=== PATIENT | female | born 1935 | race Caucasian/White ===

== ENCOUNTER 2016-07-11 05:46 | Observation (INO) | payer OTHER, MEDICARE ==
[2016-07-11] MEDS ORDERED: ceFAZolin 2 GM/DEXTROSE 100 ML IV ONE (06:00)
[2016-07-11] MEDS ORDERED: LIDOCAINE 1% 5 ML SDV ONE (06:06)
[2016-07-11] MEDS ORDERED: SKIN ADHESIVE (DERMABOND) 1 EACH TP ONE (06:34)
[2016-07-11] MEDS ORDERED: THROMBIN (RECOMBINANT) 5,000 UNIT VIAL TP ONE (06:34)
[2016-07-11] MEDS ORDERED: SURGIFLO MATRIX KIT WITH THROMBIN TP ONE (06:34)
[2016-07-11] MEDS ORDERED: BACITRACIN 50,000 UNITS/10 ML SYR IRR ONE (06:35)
[2016-07-11] MEDS ORDERED: THROMBIN (RECOMBINANT) 20,000 UNIT VIAL TP ONE (06:53)
[2016-07-11] MEDS ORDERED: ONDANSETRON 4 MG/2 ML VIAL ONE (07:00)
[2016-07-11 07:01] LABS: INR 1.07 (0.83-1.16); PROTIME(PATIENT) 13.8 SEC (12.0-15.0)
[2016-07-11] MEDS ORDERED: LIDOCAINE 2% 5 ML SDV ONE (07:10)
[2016-07-11] MEDS ORDERED: REMIFENTANIL HCL 1 MG VIAL ONE (07:11)
[2016-07-11] MEDS ORDERED: PROPOFOL 200 MG/20 ML VIAL ONE (07:12)
[2016-07-11] MEDS ORDERED: PROPOFOL/EMULSION 500 MG/50 ML BOTTLE IV ONE (07:12)
[2016-07-11] MEDS ORDERED: fentaNYL 100 MCG/2 ML INJ ONE ×2 (07:12→07:55)
[2016-07-11] MEDS ORDERED: ROCURONIUM 50 MG/5 ML VIAL ONE (07:16)
[2016-07-11] MEDS ORDERED: VASOPRESSIN 20 UNIT/ML VIAL ONE (07:49)
[2016-07-11] MEDS ORDERED: DEXAMETHASONE 4 MG/ML VIAL ONE ×2 (07:55)
[2016-07-11] MEDS ORDERED: epHEDrine SULFATE 10 MG/ML SYR ONE (08:49)
--- NOTE | 2016-07-11 09:27 | DX ---
Fluoroscopy Greater Than an Hour July 11, 2016 Indication: Anterior fusion C3-C4. Fluoroscopy time: 8.8 seconds. Dose: 0.55 mGy. Findings: Two spot fluoroscopic images were provided showing surgical hardware at C3 and C4. There is an interbody disk spacer. Impression: Fluoroscopy provided for anterior cervical fusion.
[2016-07-11] MEDS ORDERED: ONDANSETRON DISINTEGRATING 4 MG TAB PO PRN (09:28)
[2016-07-11] MEDS ORDERED: ONDANSETRON 4 MG/2 ML VIAL IVP PRN (09:28)
[2016-07-11] MEDS ORDERED: HYDROmorphONE/DILAUDID 1 MG/ML SYR IVP PRN (09:28)
[2016-07-11] MEDS ORDERED: MAGNESIUM HYDROXIDE 30 ML UDCUP PO PRN (09:28)
[2016-07-11] MEDS ORDERED: diphenhydrAMINE 25 MG CAP PO PRN (09:28)
[2016-07-11] MEDS ORDERED: PROMETHAZINE HCL 25 MG/ML VIAL IVP PRN (09:28)
[2016-07-11] MEDS ORDERED: BISACODYL 10 MG SUPP PR PRN (09:28)
[2016-07-11] MEDS ORDERED: POLYETHYLENE GLYCOL 3350 17 GM PKT PO PRN (09:28)
[2016-07-11] MEDS ORDERED: LACTULOSE 20 GM/30 ML UDCUP PO PRN (09:28)
[2016-07-11] MEDS ORDERED: DIAZEPAM 10 MG/2 ML SYR IVP PRN (09:28)
[2016-07-11] MEDS ORDERED: OXYCODONE/APAP 5/325 TAB PO PRN (09:28)
--- NOTE | 2016-07-11 09:28 | POSTOPPROG ---
Post Op Note Date of Operation: 07/11/16 Surgeon: Sarah Drake Story Editor: Zana Drake PA-C Anesthesia: GET(General Endotracheal) Pre-op Diagnosis: cervical stenosis Post-op Diagnosis: same Indication: cord compression Procedure: C34 ACDF Findings: Please see Dr. Comer's operative report Inf/Abcess present in the surg proc area at time of surgery?: No Depth: Organ Space EBL: Minimal Complications: none Drains: Blayne Staley Specimen(s): none PA Addendum - Addendum .: S: Pt awake in PACU, denies pain O: AAOx3 NAD VSS MAEx4 Motor 5/5 BUE/BLE +LT Incision cdi JPx1 A: 81 yo F s/p C34 ACDF P: PT/OT/ST Pain management No collar xrays pending Call NS with any issues
[2016-07-11] MEDS ORDERED: NS W/ 20 KCl/L 1,000 ML IV SCH (09:30)
--- NOTE | 2016-07-11 10:46 | GOP ---
[f rep st] OPERATIVE REPORT DATE OF OPERATION: 07/11/2016 SURGEON: Ayush Comer MD ANESTHESIA: General. PREOPERATIVE DIAGNOSIS: 1. C3-C4 cervical stenosis with myelopathy. 2. Treatment refractory to nonoperative intervention. POSTOPERATIVE DIAGNOSIS: 1. C3-C4 cervical stenosis with myelopathy. 2. Treatment refractory to nonoperative intervention. PROCEDURE PERFORMED: 1. Anterior arthrodesis with approach to C3-C4. 2. C3-C4 diskectomy and bilateral foraminotomies, osteophytectomies, and interbody fusion with a 7 mm titanium-coated PEEK cage with morcellized autograft and allograft. 3. Anterior cervical fusion C3-C4 with a Medtronic ZEVO plate. 4. Use of intraoperative 3D Stealth navigation. 5. Use of intraoperative fluoroscopy, less than 1 hour of physician time. 6. Use of neuromonitoring. 7. Use of operating microscope. FINDINGS: per imaging SPECIMENS: None. ESTIMATED BLOOD LOSS: 20 mL. INDICATIONS: The patient is an 81-year-old woman who has undergone prior lumbar surgery by myself from which she did quite well. She presented with ongoing multiple complaints including signs and symptoms consistent with myelopathy. She had diagnosis of severe spinal stenosis, C3-C4. After discussion of the risks, benefits, and treatment alternatives and after failing nonoperative interventions, we decided to proceed forth with surgery as described above. DESCRIPTION OF PROCEDURE: The patient was brought to the operating theater and underwent general endotracheal anesthesia without complications. She had Venodynes and MICHELLE hose placed. She was maintained supine on the operating table in slight extension. Using lateral fluoroscopy and spinal needle, we picked our entry point at the C3 -C4 level. This was marked in a transverse incision on the right side of her neck. All bony processes were inspected and padded, and the area prepped and draped in usual sterile surgical fashion. A time-out was completed per protocol. The incision was taken down initially with the scalpel blade, and then using the monopolar, taken down through subcutaneous tissue to the level of the platysma. The platysma was over-mined in the cranial and caudal directions. A Weitlaner was placed to maintain our exposure. We opened the fibers of the platysma cranially and caudally. Using blunt and sharp dissection, we traveled in a plane medial to the carotid sheath and lateral to the esophagus and trachea until we reached the prevertebral fascia. We placed a bayonetted needle into the disc space of C3-C4 and confirmed our level using lateral fluoroscopy. We then elevated the longus coli muscle from the anterior vertebral body of C3 and C4, and deep retractors were placed to maintain our exposure. The microscope was brought into the field to assist with microscopic dissection and to maintain illumination and magnification. We placed Newberry pins into the vertebral bodies of C3 and C4 and placed C3-C4 in mild distraction. At this point, using a combination of the bur tip on the drill bit and curettes, we completed a C3-C4 diskectomy. We completed osteophytectomies bilaterally and prepared the cartilaginous endplates. We measured the interbody space and placed a 7 mm titanium-coated PEEK cage filled with morcellized autograft and allograft into the C3-C4 disc space. We removed the Newberry pins and drilled down the anterior osteophytes. We secured a 17 mm Medtronic ZEVO plate onto the vertebral bodies of C3 and C4. AP and lateral x- rays demonstrated good placement of the hardware. We irrigated the wound copiously with bacitracin irrigation and left a drain in the subfascial space. The wound was then closed in multiple layers using Vicryl sutures for the deep layers and Dermabond for the skin. The patient's wounds were dressed sterilely. She was then awakened, extubated and taken to the recovery room in stable condition. There were no complications and no noted changes on neuromonitoring throughout the procedure. COMPLICATIONS: None. FINISH SANDER: AARON Bates. /[id number]/MODL MTDD
[2016-07-11] MEDS: DEXAMETHASONE 4 MG/ML VIAL IVP SCH ×2 (11:44→18:29)
[2016-07-11] MEDS: LISINOPRIL 10 MG TAB PO SCH (12:32)
[2016-07-11] MEDS: FUROSEMIDE 20 MG TAB PO SCH (12:32)
[2016-07-11] MEDS: ACETAMINOPHEN 325 MG TAB PO PRN ×2 (14:27→23:46)
--- NOTE | 2016-07-11 16:18 | DX ---
Cervical spine - 2 views - July 11, 2016 at 1430 hours Indication: Postoperative evaluation. Technique: Upright AP and lateral views. Comparison: MRI cervical spine dated June 06, 2016. Findings: An anterior cervical diskectomy and fusion construct has been formed at the C3-C4 level, ev idenced by an anterior plate, bilateral transvertebral screws in C3 and C4, and interbody bone graft and radiopaque markers in the C3-C4 interbody space. Fusion construct is well seated. No perihardware fracture or lucency. The prevertebral soft tissues are normal. Surgical drain is present anteriorly. Cervical spine is anatomically aligned with moderate multilevel degenerative disk disease extending from C2-C3 to C6-C7. Lung apices are clear. Bilateral calcified carotid plaque is worse right than le ft. Impression: New well seated ACDF at C3-C4.
[2016-07-11] MEDS: PRESERVISION AREDS 2 EYE VITAMIN 1 EACH PO SCH (18:30)
[2016-07-11] MEDS ORDERED: CEPACOL LOZENGE PO PRN (19:02)
[2016-07-11 20:16] VITALS: RESP 16
[2016-07-11] MEDS: METOPROLOL TARTRATE 50 MG TAB PO SCH (20:45)
[2016-07-11] MEDS: FAMOTIDINE 20 MG/NACL 50 ML IV SCH (20:46)
[2016-07-11] MEDS: SENNOSIDES/DOCUSATE SODIUM TAB PO SCH (20:46)
[2016-07-11] MEDS ORDERED: DL E AC PO SCH (21:00)
[2016-07-11] MEDS ORDERED: ZNOX PO SCH (21:00)
[2016-07-11] MEDS ORDERED: LUT PO SCH (21:00)
[2016-07-11] MEDS ORDERED: COPPER PO SCH (21:00)
[2016-07-11] MEDS ORDERED: VIT C PO SCH (21:00)
[2016-07-11] MEDS: DIAZEPAM 5 MG TAB PO PRN (23:46)
[2016-07-12] MEDS: CYCLOSPORINE 0.05% 1 EACH BOX EACHEYE SCH ×3 (00:57→08:09)
[2016-07-12] MEDS ORDERED: LEVOTHYROXINE 88 MCG TAB PO SCH (06:00)
[2016-07-12 07:29] VITALS: BP 126/77; PULSE 63; TEMP 97.5
[2016-07-12] MEDS: SENNOSIDES/DOCUSATE SODIUM TAB PO SCH (07:40)
[2016-07-12] MEDS: FUROSEMIDE 20 MG TAB PO SCH (07:41)
[2016-07-12] MEDS: PRESERVISION AREDS 2 EYE VITAMIN 1 EACH PO SCH (07:41)
[2016-07-12] MEDS: LISINOPRIL 10 MG TAB PO SCH (07:42)
[2016-07-12] MEDS: METOPROLOL TARTRATE 50 MG TAB PO SCH (07:42)
[2016-07-12] MEDS: FAMOTIDINE 20 MG/NACL 50 ML IV SCH (07:43)
[2016-07-12] MEDS: DIAZEPAM 5 MG TAB PO PRN (07:43)
--- NOTE | 2016-07-12 07:50 | SOAPPROG ---
SOAP Progress Note Assessment/Plan: Assessment: 81 yo F POD #1 C3/4 ACDF Plan: stable and doing well :) PT/OT x-rays look great dc [place] today restart coumadin POD #5, asa POD#[address] Comer please call with neuro changes dc home today discussed with Dr Comer 07/12/16 07:48 Subjective: mild throat soreness, no arm pain, no weakness. Objective: Vital Signs Temp Pulse Resp BP Pulse Ox 36.4 C 63 16 126/77 H 95 07/12/16 07:28 07/12/16 07:28 07/12/16 07:28 07/12/16 07:28 07/12/16 07:28 07/11/16 07/12/16 07/13/16 05:59 05:59 05:59 Intake Total 50 2550 Output Total 735 Balance 50 1815 PT 13.8 SEC (12.0-15.0) 07/11/16 06:45 INR 1.07 (0.83-1.16) 07/11/16 06:45 AAOX4, +FC PERRL, EOMI, no facial droop 5/5 + light touch C/D/I ICD10 Worksheet Patient Problems: Problems Problem Status Diagnosed Polypharmacy Acute Pulmonary embolism Acute Radicular low back pain Acute
[2016-07-12] MEDS ORDERED: VITAMIN B COMPLEX 1 EA CAP/TAB PO SCH (09:00)
[2016-07-12] MEDS ORDERED: CYANO/VITAMIN B12 1000 MCG TAB PO SCH (09:00)
[2016-07-12] MEDS ORDERED: CHOLECALCIFEROL VIT D3 1,000 UNITS TAB PO SCH (09:00)
[2016-07-12] MEDS ORDERED: LISINOPRIL 10 MG TAB PO SCH (09:00)
[2016-07-12] MEDS ORDERED: POTASSIUM CL 20 MEQ TAB PO SCH (09:00)
[2016-07-12] MEDS ORDERED: BUDESONIDE 3 MG EC CAP PO SCH (09:00)
[2016-07-12] MEDS ORDERED: CALCIUM CARBONATE 500 MG TAB PO SCH (09:00)
[2016-07-12] MEDS ORDERED: FUROSEMIDE 20 MG TAB PO SCH (09:00)
[2016-07-12] MEDS ORDERED: ALLOPURINOL 300 MG TAB PO SCH (09:00)
--- NOTE | 2016-07-12 13:55 | PDIAF ---
- Diagnosis Code Status: Full Code - Medication Management Discharge Medications: Medications to Continue on Transfer Allopurinol [Allopurinol 300 MG (RX)] 300 mg PO DAILY 01/31/15 [Last Taken 07/10] Aspirin [Aspirin 81mg (*)] 81 mg PO HS 01/31/15 [Last Taken 07/10/16] Budesonide [Entocort EC] 3 mg PO DAILY 01/31/15 [Last Taken 07/10/16] Cholecalciferol Vit D3 [Vitamin D3 (*)] 1,000 unit PO DAILY 01/31/15 [Last Taken 07/10/16] Cyanocobalamin [Vitamin B12 (*)] 1,000 mcg PO DAILY 01/31/15 [Last Taken ] Herbals/Supplements -Info Only 1 tab PO AD 01/31/15 [Last Taken 07/10/16] Guy-3 Fatty Acids [Fish Oil 1000 mg (*)] 1,000 mg PO DAILY 01/31/15 [Last Taken 07/10/16] Vit C/Dl-E AC/Lut/Copper/Znox [Preservision Softgel] 1 cap PO BID 01/31/15 [ Last Taken 07/10/16] Calcium Carbonate [Oyster Shell Calcium 500 mg (*)] 500 mg PO DAILY 02/10/15 [ Last Taken 07/10/16] cycloSPORINE 0.05% [Restasis Opht Drops(*)] 1 drop EACHEYE BID 02/10/15 [Last Taken 07/11/16] Metoprolol Tartrate [Lopressor 50 mg (*)] 50 mg PO BID #60 tab 04/09/15 [Last Taken 07/11/16] Furosemide [Lasix 20 MG (*)] 20 mg PO DAILY 06/23/16 [Last Taken 07/10/16] Glucosamine Sulfate [Glucosamine Sulfate 500 MG (*)] 1,000 mg PO DAILY 06/23/16 [Last Taken 07/10/16] Levothyroxine [Synthroid 88 mcg (*)] 88 mcg PO DAILY06 06/23/16 [Last Taken 09/22] Lisinopril [Zestril 10 mg (*)] 10 mg PO DAILY 06/23/16 [Last Taken Unknown] Potassium Cl [Klor-Con 20 meq (*)] 20 meq PO DAILY 06/23/16 [Last Taken 07/10/16 ] Vitamin B Complex [B Complex] 1 each PO DAILY 06/23/16 [Last Taken 07/10/16] Warfarin Sodium [Coumadin 3MG (*)] 6 mg PO MOTUWEFRSA@17 06/23/16 [Last Taken ] Warfarin Sodium [Coumadin 5MG (*)] 5 mg PO SUTH@17 06/23/16 [Last Taken 07/05/16 ] Benzocaine/Menthol 15/4 [Cepacol Lozenge] 1 - 2 ea PO Q2 PRN #0 lozenge [Last Taken Unknown] Diazepam [Valium 5 MG (*)] 2.5 - 5 mg PO QID PRN #0 tab 07/12/16 [Last Taken Unknown] oxyCODONE/APAP 5/325 [Percocet 5/325 (*)] 1 - 2 tab PO Q4HRS PRN #0 tab [Last Taken Unknown] Discharge Medications: Refer to the Discharge Home Medication list for PRN reason. PICC Care - Routine: N/A - Orders Services needed: Home Care, Physical Therapy, Occupational Therapy Home Care Face to Face: I certify that this patient was under my care and that I had the required [id number] encounter meeting the encounter requirements on the discharge day. My findings support the fact that the patient is homebound as defined in CMS Chapter 7 Medicare Benefits Manual 30.1.1, The condition of the patient is such that there exists a normal inability to leave home and consequently, leaving home would require a considerable and taxing effort. Diet Recommendation: no restrictions on diet Diet Texture: Dysphagia 2 - Mechanically Altered - Chopped, Ground, Dysphagia 1 - Pureed, Thin Liquids, Ice Chips, Meds Whole w/Liquids Solorio: No Dipak Stockings Discontinue Date: 07/13/15 Additional: follow up with Dr Comer in 2 weeks. ok to restart coumadin on and aspirin on 07/18/15 - Follow Up Care Current Providers and Referrals: Antolin Nagy MD [Primary Care Provider] -
[2016-07-12 15:54] VITALS: O2SAT 93
[2016-07-12] MEDS ORDERED: FAMOTIDINE 20 MG TAB PO SCH (21:00)
[2016-07-14] MEDS ORDERED: ENOXAPARIN 40 MG/0.4 ML SYR SC SCH (09:00)
== END 2016-07-12 14:22 | disposition home health service (06) ==
LOC: INTOOBSV 05:46 → F3N 05:46
PROVIDERS: ADMIT Neurological Surgery; ATTEND Neurological Surgery
PROC: 8E0WXBZ Computer Assisted Procedure of Trunk Region (ICD-10-PCS; principal; 2016-07-11 07:15)
PROC: 4A10X4G Monitoring of Central Nervous Electrical Activity, Intraoperative, External Approach (ICD-10-PCS; principal; 2016-07-11 07:15)
PROC: 0RG1070 Fusion of Cervical Vertebral Joint with Autologous Tissue Substitute, Anterior Approach, Anterior Column, Open Approach (ICD-10-PCS; principal; 2016-07-11 07:15)
DX: M48.02 Spinal stenosis, cervical region (principal); I26.99 Other pulmonary embolism without acute cor pulmonale; N18.3 Chronic kidney disease, stage 3 (moderate); I12.9 Hypertensive chronic kidney disease with stage 1 through stage 4 chronic kidney disease, or unspecified chronic kidney disease; E03.9 Hypothyroidism, unspecified; E78.5 Hyperlipidemia, unspecified; M81.0 Age-related osteoporosis without current pathological fracture; Z86.718 Personal history of other venous thrombosis and embolism
CPT/HCPCS: 22551; 72040; 76001; 92526; 92610; 97161; 97166; C1713; G8978; G8979; G8987; G8988; G8996; G8997; G8998; J0690; J1100; J2405; J2704; J3010

== ENCOUNTER → 2016-08-16 | Outpatient (CLI) | payer OTHER, MEDICARE ==
--- NOTE | 2016-08-16 18:16 | DX ---
Cervical Spine 2 views Reason for examination: Postoperative follow up. Comparison: Comparison to the previous examination of July 11, 2016. Findings: Postoperative changes of anterior cervical fusion are seen with the fusion plate, vertebra l body anchor screws and bone plug in stable positions. The hardware is intact. The bone alignment is normal. Persistent disk space loss is noted at the C2-C3 and at the C4-C5 level. Less prominent disk space loss is seen at C5-C6 and C6-C7. Facet hypertrophy extends from C3-C4 to the C6-C7 level. Prev ertebral soft tissues appear normal. Impression: 1. Stable postoperative changes of anterior cervical fusion with intact hardware. 2. See above report for additional findings.
== END ==
LOC: FIMAGING 12:06
PROVIDERS: ATTEND Physician Assistant
DX: Z09 Encounter for follow-up examination after completed treatment for conditions other than malignant neoplasm (principal); Z98.1 Arthrodesis status

== ENCOUNTER → 2016-08-16 | Outpatient (CLI) | payer OTHER, MEDICARE ==
--- NOTE | 2016-08-16 15:27 | MA ---
Screening Digital Mammogram With iCAD Analysis Clinical Indications: Routine screening. Technique: Standard cephalocaudal and mediolateral oblique projections were obtained. This examinatio n was processed by the iCAD computer aided detection system. Comparison: July 2015, July 2014, July 2013, July 2012, May 2011, May 2010, May. Breast density: Type B; Scattered fibroglandular densities. Findings: CAD was reviewed. No masses, suspicious calcifications or other signs of malignancy are id entified. There has been no significant change in the appearance of either breast. Vascular calcifi cations are noted. Impression: Negative mammogram. BI-RADS 1. Recommendation: Routine mammographic screening in one year. [facility] will send a result letter to the patient. Negative mammography should not preclude additional workup of a clinically suspicious finding. The patient's information is entered into a reminder system with a target due date for her next mammo gram.
== END ==
LOC: BMCIMAGING 10:45
DX: Z12.31 Encounter for screening mammogram for malignant neoplasm of breast (principal)
CPT/HCPCS: G0202

== ENCOUNTER 2016-09-27 00:36 | Emergency (ER) | payer OTHER, MEDICARE ==
[2016-09-27 00:42] VITALS: RESP 16; TEMP 97.5
[2016-09-27] MEDS ORDERED: OXYMETAZOLINE 30 ML NASAL SPRAY ONE ×2 (00:48→00:54)
[2016-09-27] MEDS ORDERED: SILVER NITRATE APPLICATOR 1 APPL TP ONE ×2 (00:53→01:19)
--- NOTE | 2016-09-27 01:07 | EDPHY ---
H & P Stated Complaint: epistaxis x2h, on warfarin Time Seen by Provider: 09/27/16 00:52 HPI/ROS: Chief complaint: Nose bleed HPI: 81-year-old female on Coumadin started having bleeding from her right nostril approximately 2 hours ago. It is persisted despite her applying direct pressure. 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 Denies any nasal trauma. No headache. No nausea or vomiting. Patient states that is running from the front of her right nostril. ROS: 10 point Review of Systems is negative except as noted in the HPI. Past medical history: PE Cervical spine surgery Physical exam: Gen: Awake, Alert, No Distress HEENT: Nose: Oozing from the right anterior nostril Eyes: PERRLA, EOMI Mouth: Moist mucosa Neck: Supple, no JVD Ext: no edema, non-tender Skin: no rash Neuro: CN II-XII intact, Sensation grossly intact, Strength 5/5 in bilateral upper and lower extremities - Personal History Current Tetanus/Diphtheria Vaccine: Yes Current Tetanus Diphtheria and Acellular Pertussis (TDAP): Yes Tetanus Vaccine Date: < 10 years - Medical/Surgical History Hx Asthma: No Hx Chronic Respiratory Disease: No Hx Diabetes: No Hx Cardiac Disease: Yes Hx Renal Disease: Yes Hx Cirrhosis: No Hx Alcoholism: No Hx HIV/AIDS: No Hx Splenectomy or Spleen Trauma: No Other PMH: pulmonary HTN/back problems-disectomy 02/01/15/bilat knee surgery/ renal issues/HTN/hysterectomy/carpal tunnel/ should cuff repair/cateracs with mutifocol lense/back surg/PE. Ecoli uti 3wk ago - Social History Smoking Status: Never smoked Constitutional: Initial Vital Signs Temperature (C) 36.4 C 09/27/16 00:39 Heart Rate 62 09/27/16 00:39 Respiratory Rate 16 09/27/16 00:39 Blood Pressure 182/89 H 09/27/16 00:39 O2 Sat (%) 93 09/27/16 00:39 O2 Delivery Mode Room Air Allergies/Adverse Reactions: codeine Allergy (Verified 03/15/16 12:49) NSAIDS (Non-Steroidal Anti-Inflamma Allergy (Verified 03/15/16 12:49) Opioids - Morphine Analogues Allergy (Verified 03/15/16 12:49) tramadol Allergy (Verified 03/15/16 12:49) Home Medications: Medication Instructions Recorded Allopurinol [Allopurinol 300 MG 300 mg PO DAILY 01/31/15 (RX)] Aspirin [Aspirin 81mg (*)] 81 mg PO HS 01/31/15 Budesonide [Entocort EC] 3 mg PO DAILY 01/31/15 Cholecalciferol Vit D3 [Vitamin D3 1,000 unit PO DAILY 01/31/15 (*)] Cyanocobalamin [Vitamin B12 (*)] 1,000 mcg PO DAILY 01/31/15 Herbals/Supplements -Info Only 1 tab PO AD 01/31/15 Magness-3 Fatty Acids [Fish Oil 1000 1,000 mg PO DAILY 01/31/15 mg (*)] Vit C/Dl-E AC/Lut/Copper/Znox 1 cap PO BID 01/31/15 [Preservision Softgel] Calcium Carbonate [Oyster Shell 500 mg PO DAILY 02/10/15 Calcium 500 mg (*)] cycloSPORINE 0.05% [Restasis Opht 1 drop EACHEYE BID 02/10/15 Drops(*)] Metoprolol Tartrate [Lopressor 50 50 mg PO BID #60 tab 04/09/15 mg (*)] Furosemide [Lasix 20 MG (*)] 20 mg PO DAILY 06/23/16 Glucosamine Sulfate [Glucosamine 1,000 mg PO DAILY 06/23/16 Sulfate 500 MG (*)] Levothyroxine [Synthroid 88 mcg 88 mcg PO DAILY06 06/23/16 (*)] Lisinopril [Zestril 10 mg (*)] 10 mg PO DAILY 06/23/16 Potassium Cl [Klor-Con 20 meq (*)] 20 meq PO DAILY 06/23/16 Vitamin B Complex [B Complex] 1 each PO DAILY 06/23/16 Warfarin Sodium [Coumadin 3MG (*)] 6 mg PO MOTUWEFRSA@17 06/23/16 Warfarin Sodium [Coumadin 5MG (*)] 5 mg PO SUTH@17 06/23/16 Benzocaine/Menthol 15/4 [Cepacol 1 - 2 ea PO Q2 PRN #0 lozenge 07/12/16 Lozenge] Diazepam [Valium 5 MG (*)] 2.5 - 5 mg PO QID PRN #0 tab 07/12/16 oxyCODONE/APAP 5/325 [Percocet 1 - 2 tab PO Q4HRS PRN #0 tab 07/12/16 5/325 (*)] Medical Decision Making Procedures: Procedure: Epistaxis control. After verbal consent was obtained, the patient was anesthetized with lidocaine 1 % spray and Rufino-Synephrine. The anterior epistaxis was identified on the turbinates. The patient was treated with suction and cautery with silver nitrate. Following the procedure the patient was re-examined and the bleeding was well controlled. The patient tolerated the procedure well. The procedure was performed by myself. ED Course/Re-evaluation: Patient presenting with epistaxis on Coumadin. She had a provoked PE after spinal surgery a year and half ago. I am not finding any documentation to explain why she is still on anticoagulation. She has had 3 complications due to her Coumadin in the last year and a half including 2 episodes of epistaxis and 1 episode of bleeding from an IV site. She is not currently have any risk factors for PE. I have encouraged her to have a conversation with her primary care physician regarding the indication for continuing anticoagulation. She states that he had discussed switching her to Eliquis, however I am uncertain as to what her indication for anticoagulation would be at this point. She will have that conversation with him. Otherwise she will follow-up for further management of epistaxis. She is controlled with cautery here with no further bleeding. She does not want nasal packing placed in is controlled at this time. Will discharge with follow-up as stated. - Data Points Medications Given: Discontinued Medications Phenylephrine HCl (Rufino-Synephrine) 1 spray EACHNARE EDNOW ONE Stop: 09/27/16 01:18 Last Admin: 09/27/16 01:20 Dose: 2 spr Departure - Departure Disposition: Home, Routine, Self-Care Clinical Impression: Acute anterior epistaxis Condition: Good Instructions: Nosebleed (ED) Additional Instructions: Please discussed with your primary care physician whether you need to continue taking Coumadin. Follow up with primary care doctor next 2-3 days. Return for increasing bleeding, fevers, chills, headache, or any other concerns. Referrals: Antolin Nagy MD [Primary Care Provider] - As per Instructions
[2016-09-27] MEDS ORDERED: PHENYLEPHRINE 0.5% NASAL 15 ML SPRAY EACHNARE ONE (01:17)
[2016-09-27 02:26] VITALS: BP 188/118; PULSE 58; O2SAT 92
== END 2016-09-27 02:27 | disposition home or self-care (01) ==
PROC: 2Y41X5Z Packing of Nasal Region using Packing Material (ICD-10-PCS; principal; 2016-09-27)
DX: R04.0 Epistaxis (principal); I10 Essential (primary) hypertension; Z79.82 Long term (current) use of aspirin; Z79.01 Long term (current) use of anticoagulants

== ENCOUNTER → 2016-09-29 | Outpatient (CLI) | payer OTHER, MEDICARE | LOC: BMCIMAGING 11:50 | PROVIDERS: ATTEND Neurological Surgery | DX: Z09 Encounter for follow-up examination after completed treatment for conditions other than malignant neoplasm (principal); Z98.1 Arthrodesis status ==

== ENCOUNTER → 2016-10-19 | Outpatient (CLI) | payer OTHER, MEDICARE | LOC: FIMAGING 09:52 | PROVIDERS: ATTEND Physician Assistant | DX: M99.73 Connective tissue and disc stenosis of intervertebral foramina of lumbar region (principal); M43.16 Spondylolisthesis, lumbar region; M51.26 Other intervertebral disc displacement, lumbar region; M48.06 Spinal stenosis, lumbar region; I26.99 Other pulmonary embolism without acute cor pulmonale ==

== ENCOUNTER 2016-11-06 13:01 | Day surgery (SDC) | payer OTHER, MEDICARE ==
[2016-11-06] MEDS ORDERED: fentaNYL 100 MCG/2 ML INJ ONE (14:06)
[2016-11-06] MEDS ORDERED: MIDAZOLAM 2 MG/2 ML VIAL ONE (14:06)
[2016-11-06] MEDS ORDERED: DEPO METHYLPREDNISOLONE 40 MG/ML SDV ONE (14:39)
[2016-11-06] MEDS ORDERED: DEPO METHYLPREDNISOLONE 80 MG/ML SDV ONE (14:40)
[2016-11-06] MEDS ORDERED: BUPIVACAINE 0.5% 30 ML SDV ONE (14:48)
[2016-11-06] MEDS ORDERED: LIDOCAINE 1% 30 ML SDV ONE (14:48)
== END 2016-11-06 16:05 | disposition home or self-care (01) ==
LOC: FIMAGING 13:01
PROVIDERS: ATTEND Physician Assistant Surgical
PROC: 3E0R3BZ Introduction of Anesthetic Agent into Spinal Canal, Percutaneous Approach (ICD-10-PCS; principal; 2016-11-06 14:50)
DX: M43.16 Spondylolisthesis, lumbar region (principal)
CPT/HCPCS: J1030; J1040; J2250; J3010

== ENCOUNTER → 2016-12-21 | Outpatient (CLI) | payer OTHER, MEDICARE | LOC: BMCIMAGING 08:34 | PROVIDERS: ATTEND Physician Assistant Surgical | DX: Z47.89 Encounter for other orthopedic aftercare (principal); Z98.1 Arthrodesis status ==

== ENCOUNTER → 2017-02-09 | Outpatient (CLI) | payer OTHER, MEDICARE ==
[~2017-02-09] MED LIST: BUPIVACAINE 0.5% 10 ML SDV ONE; IOPAMIDOL (ISOVUE 370) 100 ML BTL IV ONE; LIDOCAINE 1% 300 MG/30 ML SDV ONE
== END ==
LOC: FIMAGING 10:09
PROVIDERS: ATTEND Radiology Diagnostic Radiology
PROC: BQ101ZZ Fluoroscopy of Right Hip using Low Osmolar Contrast (ICD-10-PCS; principal; 2017-02-09)
PROC: 3E0U3BZ Introduction of Anesthetic Agent into Joints, Percutaneous Approach (ICD-10-PCS; principal; 2017-02-09)
DX: M25.551 Pain in right hip (principal)
CPT/HCPCS: 20610; Q9967

== ENCOUNTER → 2017-03-16 | Outpatient (CLI) | payer OTHER, MEDICARE ==
[~2017-03-16] MED LIST changes: -BUPIVACAINE 0.5% 10 ML SDV ONE; +DEPO METHYLPREDNISOLONE 40 MG/ML SDV ONE; +DEPO METHYLPREDNISOLONE 80 MG/ML SDV ONE; +ROPIVACAINE HCL 150 MG/30 ML INJ ONE
== END ==
LOC: FIMAGING 10:08
PROVIDERS: ATTEND Orthopaedic Surgery
PROC: BQ101ZZ Fluoroscopy of Right Hip using Low Osmolar Contrast (ICD-10-PCS; principal; 2017-03-16)
PROC: 3E0U33Z Introduction of Anti-inflammatory into Joints, Percutaneous Approach (ICD-10-PCS; principal; 2017-03-16)
PROC: 3E0U3BZ Introduction of Anesthetic Agent into Joints, Percutaneous Approach (ICD-10-PCS; principal; 2017-03-16)
DX: M25.551 Pain in right hip (principal)
CPT/HCPCS: 20610; J1040; J2795; Q9967; J1030

== ENCOUNTER → 2017-06-27 | Outpatient (CLI) | payer OTHER, MEDICARE | LOC: BMCIMAGING 11:20 → EDSTATUS 11:22 | PROVIDERS: ATTEND Neurological Surgery | DX: Z98.1 Arthrodesis status (principal) ==

== ENCOUNTER 2017-07-05 11:31 | Inpatient (IN) | payer OTHER, MEDICARE ==
--- NOTE | 2017-07-05 12:13 | EDPHY ---
General Narrative: CHIEF COMPLAINT: Back pain HISTORY OF PRESENT ILLNESS: Patient complains of 3 weeks history of worsening lumbar back pain. She has a history of low back pain with diagnosis of spondylolisthesis and degenerative disc. She says that she was doing well with outpatient therapies including previous IR injections. She had a hip replacement in April. She was doing well from night until 3 weeks ago when she had worsening of her low back pain during physical therapy. Since then she has had severe low back pain that continues to worsen. It is limiting her range of motion and ambulatory status due to this. She has not had any changes in her pre-existing right leg paresthesias, that occurred immediately postoperatively. She has had no saddle anesthesia. She has had no incontinence of bowel or bladder. No fever. No redness to the back. No recent injections. She was seen by the neurosurgery PA earlier today, and she sent her to our facility for higher level of care and stat MRI of the lumbar spine. REVIEW OF SYSTEMS: Ten systems reviewed and are negative unless otherwise noted in the HPI PCP: Dr. Nagy SPECIALISTS: Dr. Comer PAST MEDICAL HISTORY: Significant. Reviewed with patient. PAST SURGICAL HISTORY: Most recently right total hip arthroplasty. SOCIAL HISTORY: Nonsmoker. Retired FAMILY HISTORY: Noncontributory EXAMINATION General Appearance: Alert, no distress Head: normocephalic, atraumatic Eyes: Bilateral arcus senilis. Pupils equal and round, no conjunctival pallor or injection ENT, Mouth: Mucous membranes moist Neck: Normal inspection, supple, non-tender Respiratory: Lungs are clear to auscultation. No wheezing, rhonchi or crackles Cardiovascular: Regular rate and rhythm. No murmur. Symmetric radial pulses 2 + Back: Lumbar midline tenderness without any crepitus, step-off or deformity. There is also soft tissue tenderness on the right lumbar musculature. Neurological: GCS 15. Cranial nerves 2-12 grossly intact. A&O, nonfocal, antalgic but steady gait. Strength is symmetric in the hips, knees and ankles. Symmetric patellar reflexes 2+. Sensory symmetric to the shins, dorsum of the feet and plantar surfaces Skin: Warm and dry, no rash. No petechiae or purpura. No cellulitis or erythema. There is no fluctuance or crepitus over the lumbar spinal skin Extremities: Nontender, no pedal edema. Range of motion is symmetric in lower extremities. Psychiatric: Mood and affect normal DIFFERENTIAL DIAGNOSES: Including but not limited to lumbar radiculopathy, diskitis, epidural abscess, spondylolisthesis, spinal instability MDM: 12:05 p.m. Lumbar back pain with known spondylolisthesis at L3-4 and L4-5. She is neuro intact with no evidence of cauda equina but she does have severe, intractable pain. Thus I have ordered an MRI of the lumbar spine. She has no fever or recent injections that would indicate the possibility of epidural abscess or diskitis. I will consult Neurosurgery. 12:15 p.m. Case discussed with neurosurgery PA Tonya Chau. She recommends MRI of the lumbar spine and possibly flexion-extension films depending on what the MRI reveals. This has been ordered I will call her back with results of the MRI. 1:54 p.m. Case discussed with radiologist Dr. Morales. MRI findings discussed as documented. No acute cord compression 2:00 p.m. Case discussed with the on-call neurosurgery PA, Tonya Chau. She informed that she would be happy to admit the patient for symptomatic care injection or she will be comfortable with patient being discharged home with outpatient injection ordered. I will discuss with the patient to evaluate. 2:05 p.m. Patient re-evaluated. She says that she does not feel safe for comfortable going home. She would like to stay for admission. I will contact Neurosurgery again to discuss. 2:25 p.m. I discussed the case again with the PA Tonya Chau. She will admit the patient to Neurosurgery service. She will enter the remaining orders. Plan for injection likely tomorrow morning. Patient is comfortable this plan. At this time she has been admitted for pain control and has no neuro deficits. She is admitted in stable condition SUPERVISION: Patient was independently examined, but I discussed the case with my secondary supervising physician Dr. Pierce - History Smoking Status: Never smoked - Objective Vital Signs: Initial Vital Signs Temperature (C) 97.3 F 07/05/17 11:42 Heart Rate 86 07/05/17 11:42 Respiratory Rate 18 07/05/17 11:42 Blood Pressure 197/105 H 07/05/17 11:42 O2 Sat (%) 97 07/05/17 11:42 O2 Delivery Mode Room Air Allergies/Adverse Reactions: codeine Allergy (Verified 07/05/17 11:41) NSAIDS (Non-Steroidal Anti-Inflamma Allergy (Verified 07/05/17 11:41) Opioids - Morphine Analogues Allergy (Verified 07/05/17 11:41) tramadol Allergy (Verified 07/05/17 11:41) Home Medications: Medication Instructions Recorded Allopurinol [Allopurinol 300 MG 300 mg PO DAILY 01/31/15 (RX)] Aspirin [Aspirin 81mg (*)] 81 mg PO HS 01/31/15 Budesonide [Entocort EC] 3 mg PO DAILY 01/31/15 Cholecalciferol Vit D3 [Vitamin D3 1,000 unit PO DAILY 01/31/15 (*)] Cyanocobalamin [Vitamin B12 (*)] 1,000 mcg PO DAILY 01/31/15 Calcium Carbonate [Oyster Shell 500 mg PO DAILY 02/10/15 Calcium 500 mg (*)] Levothyroxine [Synthroid 88 mcg 88 mcg PO DAILY06 06/23/16 (*)] Lisinopril [Zestril 10 mg (*)] 10 mg PO DAILY 06/23/16 Potassium Cl [Klor-Con 20 meq (*)] 20 meq PO DAILY 06/23/16 Warfarin Sodium [Coumadin 3MG (*)] 6 mg PO MOTUWEFRSA@17 06/23/16 Warfarin Sodium [Coumadin 5MG (*)] 5 mg PO SUTH@17 06/23/16 Laboratory Results: Laboratory Results 07/05/17 12:30 07/05/17 12:30 07/05/17 07/05/17 07/05/17 12:30 12:30 12:30 WBC 6.54 10^3/uL 10^3/uL (3.80-9.50) RBC 4.22 10^6/uL 10^6/uL (4.18-5.33) Hgb 13.1 g/dL g/dL (12.6-16.3) Hct 39.5 % % (38.0-47.0) MCV 93.6 fL fL (81.5-99.8) MCH 31.0 pg pg (27.9-34.1) MCHC 33.2 g/dL g/dL (32.4-36.7) RDW 17.0 % H % (11.5-15.2) Plt Count 246 10^3/uL 10^3/uL (150-400) MPV 10.5 fL fL (8.7-11.7) Neut % (Auto) 67.8 % % (39.3-74.2) Lymph % (Auto) 18.0 % % (15.0-45.0) [place] % (Auto) 11.0 % % (4.5-13.0) Eos % (Auto) 2.3 % % (0.6-7.6) Baso % (Auto) 0.6 % % (0.3-1.7) Nucleat RBC Rel Count 0.0 % % (0.0-0.2) Absolute Neuts (auto) 4.43 10^3/uL 10^3/uL (1.70-6.50) Absolute Lymphs (auto) 1.18 10^3/uL 10^3/uL (1.00-3.00) Absolute Monos (auto) 0.72 10^3/uL 10^3/uL (0.30-0.80) Absolute Eos (auto) 0.15 10^3/uL 10^3/uL (0.03-0.40) Absolute Basos (auto) 0.04 10^3/uL 10^3/uL (0.02-0.10) Absolute Nucleated RBC 0.00 10^3/uL 10^3/uL (0-0.01) Immature Gran % 0.3 % % (0.0-1.1) Immature Gran # 0.02 10^3/uL 10^3/uL (0.00-0.10) PT 28.9 SEC H SEC (12.0-15.0) INR 2.74 H (0.83-1.16) APTT 31.1 SEC SEC (23.0-38.0) Sodium 143 mEq/L mEq/L (134-144) Potassium 4.1 mEq/L mEq/L (3.5-5.2) Chloride 106 mEq/L mEq/L (97-110) Carbon Dioxide 26 mEq/l mEq/l (22-31) Anion Gap 11 mEq/L mEq/L (8-16) BUN 29 mg/dL H mg/dL (7-23) Creatinine 1.1 mg/dL H mg/dL (0.6-1.0) Estimated GFR 48 Glucose 89 mg/dL mg/dL (70-100) Calcium 10.1 mg/dL mg/dL (8.5-10.4) Departure - Departure Disposition: Home, Routine, Self-Care Clinical Impression: Radicular low back pain, Intractable low back pain Condition: Good Referrals: Antolin Nagy MD [Primary Care Provider] - As per Instructions
[2017-07-05 12:40] LABS: PLATELET COUNT 246 10^3/uL (150-400)
[2017-07-05 12:49] LABS: INR 2.74 (0.83-1.16); PROTIME(PATIENT) 28.9 SEC (12.0-15.0)
[2017-07-05] MEDS ORDERED: HYDROCODONE/APAP 5/325 TAB PO PRN (14:37)
[2017-07-05] MEDS: METHOCARBAMOL 500 MG TAB PO SCH ×2 (16:36→20:31)
--- NOTE | 2017-07-05 17:34 | GHP ---
[f rep st] HISTORY AND PHYSICAL DATE OF ADMISSION: 07/05/2017 REASON FOR ADMISSION: Intractable low back pain. The patient was seen in the emergency room by Dr. Comer. HISTORY, HOSPITAL COURSE, MAJOR MEDICAL FINDINGS: The patient is an 81-year- old female who is well known to our practice for both cervical spine and lumbar spine issues. She underwent a lumbar MRI in October which demonstrated spondylolisthesis at L3-4 and L4-5 and she further underwent facet injections at L3-4 and L4-[address] Elizalde in November which helps to alleviate her back pain. She has been doing okay since that time and approximately 9 weeks ago underwent a right hip replacement with Dr. Chambers. The patient was doing well until 3 weeks ago when she developed excruciating low back pain. She states this pain is an 8 to 9/10 with almost any movement. Her daughter who is with her states that she is unable to do really any activity without having severe pain. She was seen in the office today and based on these symptoms was sent to [facility] emergency room for further evaluation. Upon evaluation in the emergency room. The patient was predominantly having issues with her lower back. She was sent for a lumbar spine MRI which demonstrated at L3-4, and L4-5 severe facet arthropathy bilaterally. There is severe central canal narrowing at L3-4 and moderate canal narrowing at L4-5. There is bilateral lateral recess stenosis. At L2-3 and L5-S1 there is also [id number] facet arthropathy with degenerative disc changes noted. The patient denies any loss of bowel or bladder control or any weakness so she has had to use her walker to ambulate over the last 2 weeks due to her instability with pain. PAST MEDICAL HISTORY: Significant for lumbago, cervicalgia, cervical stenosis, lumbar stenosis. History of prior carpal tunnel surgery. History of pulmonary hypertension. Bilateral knee surgery. History of recent right hip surgery. History of E coli UTIs in the past. History of rotator cuff repair. SOCIAL HISTORY: Patient has never smoked. She does not drink any alcohol or use illicit drugs. ALLERGIES: Codeine, NSAIDs, opiates, and tramadol. FAMILY HISTORY: Noncontributory. MEDICATION: Vitamin B12, cyclosporine, Restasis ophthalmological drops, glucosamine, chondroitin, vitamin B, Coumadin, acetaminophen, allopurinol 300 mg 1 p.o. q., budesonide 3 mg p.o. daily, Lasix 20 mg 1 p.o. daily, levothyroxine 88 mcg 1 p.o. daily, lisinopril 10 mg 1 p.o. q., metoprolol 50 mg 1 p.o. twice daily, and potassium 20 mEq p.o. daily. PHYSICAL EXAM: VITAL SIGNS: BP 132/71, heart rate is 74, and she is 94% on room air. Temp is 36.6. NEUROLOGIC: The patient is in no acute distress. She is alert and oriented x3. She answers questions appropriately. Affect appropriate for the given situation. Cranial nerves 2-12 are grossly intact. EOMI and PERRLA. The patient is a 5/5 and equal in her bilateral upper and bilateral lower extremities including her deltoids, triceps, biceps, wrist flexors, extensors, interossei, intrinsic home agent, iliopsoas, hamstrings, quadriceps, plantar flexion, dorsiflexion, EHL. Sensation is intact in bilateral upper and bilateral lower extremities. MEDICATIONS: Vitamin B12, cyclosporine, Restasis ophthalmological drops, glucosamine, chondroitin, vitamin B, Coumadin, acetaminophen, allopurinol 300 mg 1 p.o. q., budesonide 3 mg p.o. daily, Lasix 20 mg 1 p.o. daily, levothyroxine 88 mcg 1 p.o. daily, lisinopril 10 mg 1 p.o. q., metoprolol 50 mg 1 p.o. twice daily, and potassium 20 mEq p.o. daily. ASSESSMENT: The patient is an 81-year-old female who presented to clinic with excruciating intractable low back pain. She was seen in the emergency room and underwent a new MRI which re-demonstrated severe facet arthropathy and stenosis at L3-4 and L4-5. We will admit her to the hospital to try to optimize her pain management and order an NORA with bilateral facet injections at L3-4 and L4-5. The patient is on Coumadin. We will go ahead and hold this for her injection for tomorrow. The patient was seen again by Dr. Comer in the emergency room. This was discussed with Interventional Radiology today. Would optimize pain management and PT/OT have been ordered. /[id number]/MODL MTDD
[2017-07-05] MEDS ORDERED: ACETAMINOPHEN 500 MG TAB PO SCH (18:00)
[2017-07-05] MEDS: METOPROLOL TARTRATE 50 MG TAB PO SCH (20:31)
[2017-07-05] MEDS: ACETAMINOPHEN 500 MG TAB PO PRN (20:37)
[2017-07-06] MEDS: ACETAMINOPHEN 500 MG TAB PO PRN ×3 (02:37→21:50)
[2017-07-06] MEDS: METHOCARBAMOL 500 MG TAB PO SCH ×4 (04:41→21:50)
[2017-07-06] MEDS: LEVOTHYROXINE 88 MCG TAB PO SCH (04:41)
[2017-07-06 05:41] LABS: INR 2.77 (0.83-1.16); PROTIME(PATIENT) 29.2 SEC (12.0-15.0)
--- NOTE | 2017-07-06 09:43 | NEUSURGPN ---
Assessment/Plan: Nella is an 81 y/o female with low back pain, improved slightly with muscle relaxers and pain medications. -Interventional injection ordered but patient INR is still elevated at 2.7. Will continue to hold Coumadin -Optimize pain management -PT/OT -Discussed with Dr. Comer -Please notify NS with any change in neuro/motor exam Subjective: pain slightly improved with muscle relaxers Objective: NAD A&Ox3 MAEx4 5/5 and equal in BUE and BLE. - Physician Discussed Patient with : [facility] Physical Exam - Vitals, I&O, Labs I and O 07/05/17 07/06/17 07/07/17 05:59 05:59 05:59 Intake Total 200 Balance 200 Weight 62.142 kg Intake: Oral (ml) 200 Other: Intake Quantity Yes Sufficient Vital Signs Temp Pulse Resp BP Pulse Ox 36.4 C 73 16 123/83 H 93 07/06/17 07:59 07/06/17 07:59 07/06/17 07:59 07/06/17 07:59 07/06/17 07:59 ICD10 Worksheet Patient Problems: Problems Problem Status Onset Intractable low back pain Acute Radicular low back pain Acute Polypharmacy Acute Pulmonary embolism Acute
[2017-07-06] MEDS: METOPROLOL TARTRATE 50 MG TAB PO SCH (09:59)
[2017-07-06] MEDS: LISINOPRIL 10 MG TAB PO SCH (10:00)
[2017-07-06] MEDS: FUROSEMIDE 20 MG TAB PO SCH (10:00)
[2017-07-06] MEDS: BUDESONIDE 3 MG EC CAP PO SCH (10:14)
--- NOTE | 2017-07-06 10:16 | ASMTCASEMG ---
Living Arrangements What is your living Answers: Alone arrangement? Who do you live with? Type Of Residence What kind of residence do Answers: Condo/Townhouse you live in? Discharge Plan Comments Coordination Status Comments Notes: Patient is an 81yo female who was admitted for excruciating low back pain. Patient has a hx of cervical spine and lumbar spine issues. Her MRI showed severe central canal narrowing at L3-4 and moderate canal narrowing at L4-5. Patient is scheduled for bilateral facet injections at L3-4 and L4-5. PT/OT have been ordered. D/C needs TBD. CM will follow. Date Signed: 07/06/2017 10:16 AM Electronically Signed By:Fifi Quiroga LCSW
[2017-07-06] MEDS: ALLOPURINOL 300 MG TAB PO SCH (12:12)
[2017-07-06] MEDS: POTASSIUM CL 20 MEQ TAB PO SCH (12:12)
[2017-07-07] MEDS: METOPROLOL TARTRATE 50 MG TAB PO SCH ×3 (00:08→21:07)
[2017-07-07] MEDS: METHOCARBAMOL 500 MG TAB PO SCH ×4 (04:45→21:07)
[2017-07-07] MEDS: LEVOTHYROXINE 88 MCG TAB PO SCH (04:45)
[2017-07-07] MEDS: ACETAMINOPHEN 500 MG TAB PO PRN ×3 (04:45→18:10)
[2017-07-07] MEDS: BUDESONIDE 3 MG EC CAP PO SCH (08:30)
[2017-07-07] MEDS: FUROSEMIDE 20 MG TAB PO SCH (08:33)
[2017-07-07] MEDS: LISINOPRIL 10 MG TAB PO SCH (08:33)
[2017-07-07 09:19] LABS: INR 2.15 (0.83-1.16)
--- NOTE | 2017-07-07 11:01 | SOAPPROG ---
BANDAR Progress Note Assessment/Plan: Assesment: Nella is an 81 y/o female with low back pain, improved slightly with muscle relaxers and pain medications. -Interventional injection ordered but patient INR is still elevated at 2.1 today. Will continue to hold Coumadin and recheck Sunday AM. -Optimize pain management -PT/OT -Please notify NS with any change in neuro/motor exam Subjective: pain slightly improved with muscle relaxers Objective: NAD A&Ox3 MAEx4 5/ and equal in BUE and BLE Subjective: out of bed in chair, feeling the same as yesterday. SHe did some mild PT exercises yesterday which flared he pain a little bit. Objective: Vital Signs Temp Pulse Resp BP Pulse Ox 36.5 C 84 14 129/75 H 91 L 07/07/17 07:51 07/07/17 08:32 07/07/17 07:51 07/07/17 08:33 07/07/17 07:51 07/06/17 07/07/17 07/08/17 05:59 05:59 05:59 Intake Total 200 Balance 200 PT 24.0 SEC (12.0-15.0) H 07/07/17 08:40 INR 2.15 (0.83-1.16) H 07/07/17 08:40 ICD10 Worksheet Patient Problems: Problems Problem Status Onset Intractable low back pain Acute Radicular low back pain Acute Polypharmacy Acute Pulmonary embolism Acute
[2017-07-07] MEDS: ALLOPURINOL 300 MG TAB PO SCH (12:08)
[2017-07-07] MEDS: POTASSIUM CL 20 MEQ TAB PO SCH (12:08)
--- NOTE | 2017-07-07 14:59 | ASMTCMCOM ---
CM Note CM Note Notes: Interventional injection planned when pt's INR stable. PT/OT have cleared. Anticipate d/c with no CM needs when medically cleared. CM will continue to follow for any change in needs. Date Signed: 07/07/2017 02:59 PM Electronically Signed By:KATHI Vargas
[2017-07-07] MEDS ORDERED: ONDANSETRON DISINTEGRATING 4 MG TAB PO PRN (20:52)
[2017-07-08 04:39] LABS: INR 1.72 (0.83-1.16); PROTIME(PATIENT) 20.3 SEC (12.0-15.0)
[2017-07-08] MEDS: ACETAMINOPHEN 500 MG TAB PO PRN ×3 (05:01→23:27)
[2017-07-08] MEDS: METHOCARBAMOL 500 MG TAB PO SCH ×4 (05:01→21:52)
[2017-07-08] MEDS: LEVOTHYROXINE 88 MCG TAB PO SCH (05:01)
[2017-07-08] MEDS: BUDESONIDE 3 MG EC CAP PO SCH (10:26)
[2017-07-08] MEDS: METOPROLOL TARTRATE 50 MG TAB PO SCH ×2 (10:26→21:52)
[2017-07-08] MEDS: LISINOPRIL 10 MG TAB PO SCH (10:27)
[2017-07-08] MEDS: FUROSEMIDE 20 MG TAB PO SCH (10:28)
[2017-07-08] MEDS: ALLOPURINOL 300 MG TAB PO SCH (10:29)
[2017-07-08] MEDS: POTASSIUM CL 20 MEQ TAB PO SCH (10:30)
--- NOTE | 2017-07-08 11:42 | SOAPPROG ---
BANDAR Progress Note Assessment/Plan: Assesment: Nella is an 81 y/o female with low back pain, improved slightly with muscle relaxers and pain medications. -INR 1.7 today, should go to IR for L3-4, 4-5 facet injections -Optimize pain management -PT/OT -if injections help pain, could d/c home this afternoon vs. tomorrow -Please notify NS with any change in neuro/motor exam 07/08/17 11:40 Subjective: no new events, has been walking around the unit, no leg pain Objective: Vital Signs Temp Pulse Resp BP Pulse Ox 36.6 C 58 L 16 134/75 H 90 L 07/08/17 11:33 07/08/17 11:33 07/08/17 11:33 07/08/17 11:33 07/08/17 11:33 PT 20.3 SEC (12.0-15.0) H 07/08/17 04:22 INR 1.72 (0.83-1.16) H 07/08/17 04:22 AAOx3, full strength and sensation, no drift, sensation normal - Pending Discharge Pending Discharge Within 24 Hours: Yes Pending Discharge Date: 07/09/17 Pending Discharge Time: 11:00 ICD10 Worksheet Patient Problems: Problems Problem Status Onset Intractable low back pain Acute Radicular low back pain Acute Polypharmacy Acute Pulmonary embolism Acute
[2017-07-08] MEDS ORDERED: MIDAZOLAM 2 MG/2 ML VIAL IVP PRN (13:24)
[2017-07-08] MEDS ORDERED: HEPARIN 10,000 UNIT/10 ML MDV IVP PRN (13:24)
[2017-07-08] MEDS ORDERED: MEPERIDINE 25 MG/ML SYR IVP PRN (13:24)
[2017-07-08] MEDS ORDERED: fentaNYL 100 MCG/2 ML INJ IVP PRN (13:24)
[2017-07-08] MEDS ORDERED: GLUCAGON HCL 1 MG VIAL IVP PRN (13:24)
[2017-07-08] MEDS ORDERED: PROTAMINE SULFATE 50 MG/5 ML VIAL IVP PRN (13:24)
[2017-07-08] MEDS ORDERED: FLUMAZENIL 0.5 MG/5 ML MDV IVP PRN (13:24)
[2017-07-08] MEDS ORDERED: ALTEPLASE 2 MG VIAL IVP PRN (13:24)
[2017-07-08] MEDS ORDERED: NALOXONE HCL 0.4 MG/ML INJ IVP PRN (13:24)
[2017-07-08] MEDS ORDERED: NS 1,000 ML IV SCH (13:30)
[2017-07-08] MEDS ORDERED: ONDANSETRON 4 MG/2 ML VIAL ONE (13:47)
[2017-07-08] MEDS ORDERED: IOPAMIDOL (ISOVUE-M 300) 15 ML VIAL ONE (14:50)
[2017-07-08] MEDS ORDERED: TRIAMCINOLONE ACETONIDE 200 MG/5 ML MDV IM ONE (14:50)
--- NOTE | 2017-07-08 14:54 | PDPROPOC ---
Sedation Plan of Care Sedation Plan of Care: vital signs stable, mental status noted, patient educated of risks, benefits, alternatives, patient can tolerate sedation ASA Classification: ASA 3 Planned drugs: fentanyl, midazolam Mallampati Score: Class 4 Mallampati Reference Image: Patient passed 3-3-2 rule?: Yes
--- NOTE | 2017-07-08 14:57 | PDRADPN ---
Radiology Procedure Note Date of Procedure: 07/08/17 Radiologist: Kevin Cooney Anesthesia: IV Sedation (odansetron, fentany.) Pre-op Diagnosis: Acquired lumbar spinal stenosis Post-op Diagnosis: Same Indication: Severe back pain Procedure: Lumbar epidural steroid injection. Finding(s): 2 ml kenalog (80 mg) and 3 ml PF 1% xylocaine injected via L3-4. Limited dispersion of contrast, with some venous uptake. OK with me for patient to be discharged today. Inf/Abcess present in the surg proc area at time of surgery?: No EBL: Minimal Complications: none
[2017-07-08] MEDS ORDERED: ONDANSETRON 4 MG/2 ML VIAL IVP ONE (15:15)
[2017-07-08] MEDS ORDERED: WARFARIN SODIUM 4 MG TAB PO SCH (16:00)
[2017-07-08 23:25] VITALS: RESP 16
[2017-07-09] MEDS: METHOCARBAMOL 500 MG TAB PO SCH ×2 (05:29→11:04)
[2017-07-09] MEDS: LEVOTHYROXINE 88 MCG TAB PO SCH (05:29)
[2017-07-09 07:05] VITALS: TEMP 98.1; O2SAT 93
[2017-07-09] MEDS: LISINOPRIL 10 MG TAB PO SCH (09:26)
[2017-07-09] MEDS: BUDESONIDE 3 MG EC CAP PO SCH (09:26)
[2017-07-09] MEDS: METOPROLOL TARTRATE 50 MG TAB PO SCH (09:28)
[2017-07-09] MEDS: FUROSEMIDE 20 MG TAB PO SCH (09:30)
[2017-07-09 09:32] VITALS: BP 109/70; PULSE 74
--- NOTE | 2017-07-09 10:27 | SOAPPROG ---
SOAP Progress Note Assessment/Plan: Assesment: Nella is an 82 y/o female with low back pain. Underwent L3/4 NORA yesterday afternoon and tolerated it well. Doing well today She has restarted her Coumadin PLAN: DC Home today follow up with Dr. Comer in 10 days to 2 weeks. Subjective: out of bed, walking around room. Pain well controlled. Denies new numbness, tingling or weakness Objective: NAD A&Ox3 MAEx4 5/5 and equal in BUE and BLE Objective: Vital Signs Temp Pulse Resp BP Pulse Ox 36.7 C 74 16 109/70 93 07/09/17 07:03 07/09/17 09:33 07/09/17 07:03 07/09/17 09:33 07/09/17 07:03 07/08/17 07/09/17 07/10/17 05:59 05:59 05:59 Intake Total 400 Balance 400 PT 20.3 SEC (12.0-15.0) H 07/08/17 04:22 INR 1.72 (0.83-1.16) H 07/08/17 04:22 ICD10 Worksheet Patient Problems: Problems Problem Status Onset Intractable low back pain Acute Radicular low back pain Acute Polypharmacy Acute Pulmonary embolism Acute
[2017-07-09] MEDS: POTASSIUM CL 20 MEQ TAB PO SCH (11:03)
[2017-07-09] MEDS: ALLOPURINOL 300 MG TAB PO SCH (11:03)
[2017-07-09] MEDS: ACETAMINOPHEN 500 MG TAB PO PRN (11:03)
--- NOTE | 2017-07-10 16:23 | ASDISCHSUM ---
Discharge Information Plan Status:Home with No Needs Medically Cleared to Leave:07/08/2017 Discharge Date:07/09/2017 12:10 PM CM D/C Disposition: ADT D/C Disposition:Home, Routine, Self-Care Projected Discharge Date:07/09/2017 12:00 AM Transportation at D/C: Discharge Delay Reason: Follow-Up Date:07/09/2017 12:00 AM Discharge Slot: Final Diagnosis: Placement Information Patient Contact Information Contact Name:VERONA Relationship:Daughter Address: Work Phone: City:[place] Phone: State/Zip Code:[place] Email: Financial Information Financial Class: Primary Plan Desc:MEDICARE INPATIENT Primary Plan Number:[id number] Secondary Plan Desc:[employer]/MDR SUPPLEMENT Secondary Plan Number:[id number] Assessment Information [facility] Initial CM Assessment Living Arrangements What is your living Answers: Alone arrangement? Who do you live with? Type Of Residence What kind of residence do Answers: Condo/[facility] you live in? Discharge Plan Comments Coordination Status Comments Notes: Patient is an 81yo female who was admitted for excruciating low back pain. Patient has a hx of cervical spine and lumbar spine issues. Her MRI showed severe central canal narrowing at L3-4 and moderate canal narrowing at L4-5. Patient is scheduled for bilateral facet injections at L3-4 and L4-5. PT/OT have been ordered. D/C needs TBD. CM will follow. Date Signed: 07/06/2017 10:16 AM Electronically Signed By:Fifi Quiroga LCSW [facility] CM Progress Note CM Note CM Note Notes: Interventional injection planned when pt's INR stable. PT/OT have cleared. Anticipate d/c with no CM needs when medically cleared. CM will continue to follow for any change in needs. Date Signed: 07/07/2017 02:59 PM Electronically Signed By:KATHI Vargas Case Management Discharge Plan Note Case Management Discharge Discharge Order Complete? Answers: Yes Patient to Obtain Answers: Independently Medications Transportation Arranged Answers: Family/Friends Family Notified Answers: Yes Discharge Comments Notes: Patient underwent L3/4 NORA yesterday and tolerated it well. Pain is well controlled. Patient to D/C home today with no needs. Date Signed: 07/09/2017 11:06 AM Electronically Signed By:Fifi Quiroga LCSW Intervention Information Intervention Type:*Incorrect Registration Date of Service:07/06/2017 11:52 AM Patient Type:Inpatient Staff Member:ILIR Anton Courtney Hours: Discipline: Severity: Comment:
== END 2017-07-09 12:10 | disposition home or self-care (01) | DRG 552 ==
LOC: OBSVTOIN 14:32 → F3E 15:43
PROVIDERS: ADMIT Neurological Surgery; ATTEND Neurological Surgery
PROC: 3E0S33Z Introduction of Anti-inflammatory into Epidural Space, Percutaneous Approach (ICD-10-PCS; principal; 2017-07-08)
DX: M43.16 Spondylolisthesis, lumbar region (principal); M48.061 Spinal stenosis, lumbar region without neurogenic claudication; M51.36 Other intervertebral disc degeneration, lumbar region; Z96.641 Presence of right artificial hip joint; Z87.440 Personal history of urinary (tract) infections
CPT/HCPCS: 97110-GP; 97161-GP; 97165-GO; 97535-GO; G0378; G8978-GP-CK; G8979-GP-CJ; G8980-GP-CI; G8987-GO-CI; G8987-GO-CJ; G8988-GO-CH; G8988-GO-CI; G8989-GO-CH; J2405; J3010; J3301; Q9967

== ENCOUNTER 2017-07-30 13:11 | Day surgery (SDC) | payer OTHER, MEDICARE ==
[2017-07-30 14:28] VITALS: TEMP 98.1
[2017-07-30] MEDS ORDERED: FLUMAZENIL 0.5 MG/5 ML MDV IVP PRN (14:28)
[2017-07-30] MEDS ORDERED: fentaNYL 100 MCG/2 ML INJ IVP PRN (14:28)
[2017-07-30] MEDS ORDERED: MIDAZOLAM 2 MG/2 ML VIAL IVP PRN (14:28)
[2017-07-30] MEDS ORDERED: MEPERIDINE 25 MG/ML SYR IVP PRN (14:28)
[2017-07-30] MEDS ORDERED: NALOXONE HCL 0.4 MG/ML INJ IVP PRN (14:28)
[2017-07-30] MEDS ORDERED: NS 1,000 ML IV SCH (14:30)
[2017-07-30] MEDS ORDERED: ONDANSETRON 4 MG/2 ML VIAL ONE (14:47)
--- NOTE | 2017-07-30 15:43 | PDPROPOC ---
Sedation Plan of Care Sedation Plan of Care: vital signs stable, mental status noted, patient educated of risks, benefits, alternatives, patient can tolerate sedation ASA Classification: ASA 3 Planned drugs: fentanyl, midazolam Mallampati Score: Class 2 Mallampati Reference Image: Patient passed 3-3-2 rule?: Yes
--- NOTE | 2017-07-30 15:43 | PDGENHP ---
History & Physical Chief Complaint: PERSISTANT BACK PAIN History of Present Illness: HAS HAD MULTIPLE STEROID INJECTIONS. LAST ONE AT L3 -4,WITH NO RELIEF. BACK SURGERY SCHEDULED END OF AUG. Pertinent Past, Social, Family History: H/O OF MULTIPLE JOINT REPLACEMENTS, RECENT RT HIP. PERSISTANT BACK PAIN. Relevant Physical Exam: PAIN 3/10 RIGHT NOW AT BOTH HIPS. WITH WALKING, IT'S 10 /10. Cardiorespiratory Assessment: RRR.CTA
[2017-07-30] MEDS ORDERED: TRIAMCINOLONE ACETONIDE 200 MG/5 ML MDV IM ONE (16:27)
[2017-07-30] MEDS ORDERED: IOPAMIDOL (ISOVUE-M 300) 15 ML VIAL ONE (16:27)
[2017-07-30] MEDS ORDERED: LIDOCAINE 1% 300 MG/30 ML SDV ONE (16:27)
[2017-07-30] MEDS ORDERED: ONDANSETRON 4 MG/2 ML VIAL IVP PRN (17:08)
--- NOTE | 2017-07-30 17:12 | PDRADPN ---
Radiology Procedure Note Date of Procedure: 07/30/17 Radiologist: Sandra Elizalde Anesthesia: IV Sedation (fentanyl and versed) Pre-op Diagnosis: back pain Post-op Diagnosis: same Indication: back pain Procedure: caudal NORA; L3-4 NORA. Finding(s): see report. Inf/Abcess present in the surg proc area at time of surgery?: No Complications: None
[2017-07-30 17:18] VITALS: PULSE 66; RESP 17; O2SAT 98
[2017-07-30 17:42] VITALS: BP 158/89
== END 2017-07-30 17:45 | disposition home or self-care (01) ==
LOC: FIMAGING 13:11
PROVIDERS: ATTEND Physician Assistant Surgical
PROC: 3E0S3BZ Introduction of Anesthetic Agent into Epidural Space, Percutaneous Approach (ICD-10-PCS; principal; 2017-07-30 16:48)
PROC: 3E0S33Z Introduction of Anti-inflammatory into Epidural Space, Percutaneous Approach (ICD-10-PCS; principal; 2017-07-30 16:48)
DX: M43.16 Spondylolisthesis, lumbar region (principal)
CPT/HCPCS: J2250; J2405; J3010; J3301; Q9967

== ENCOUNTER 2017-09-04 08:40 | Inpatient (IN) | payer OTHER, MEDICARE ==
[2017-09-04] MEDS ORDERED: morphINE PF 5 MG/10 ML INJ IT ONE (08:47)
[2017-09-04] MEDS ORDERED: ceFAZolin 2 GM/SWFI 2 GM/20 ML SYR IVP ONE (08:47)
[2017-09-04] MEDS ORDERED: GABAPENTIN 300 MG CAP PO ONE (08:47)
[2017-09-04] MEDS ORDERED: ACETAMINOPHEN 500 MG TAB PO ONE (08:47)
[2017-09-04] MEDS ORDERED: LIDOCAINE 1% 2 ML INJ ID PRN (08:48)
[2017-09-04] MEDS ORDERED: LR 1,000 ML IV ONE (08:48)
[2017-09-04] MEDS ORDERED: LIDOCAINE 1% 2 ML INJ ONE (09:02)
[2017-09-04] MEDS ORDERED: BUPIVACAINE 0.25% 30 ML SDV ONE (09:32)
[2017-09-04] MEDS ORDERED: BACITRACIN 50,000 UNITS/10 ML SYR IRR ONE (09:32)
[2017-09-04] MEDS ORDERED: CITRATE DEXTROSE SOLN 500 ML BAG ONE (09:33)
[2017-09-04] MEDS ORDERED: CHLORHEXIDINE GLUC HIBICLENS 118 ML BTL TP ONE (09:33)
[2017-09-04] MEDS ORDERED: THROMBIN (BOVINE) 20,000 UNIT VIAL TP ONE (09:33)
[2017-09-04 09:45] LABS: INR 1.12 (0.83-1.16); PROTIME(PATIENT) 14.6 SEC (12.0-15.0)
[2017-09-04] MEDS ORDERED: ONDANSETRON 4 MG/2 ML VIAL ONE (09:53)
[2017-09-04] MEDS ORDERED: ONDANSETRON 4 MG/2 ML VIAL IVP ONE (09:53)
--- NOTE | 2017-09-04 09:53 | PDHPUP ---
History & Physical Update H&P update statement: This history and physical update is based on an assessment of the patient which was completed after admission or registration (within 24 hours), but prior to the surgery/procedure. H&P update: H&P reviewed & patient examined, no change in patient's condition since H&P completed (Consents signed and site marked. All questions answered and risks discussed. )
--- NOTE | 2017-09-04 10:22 | PDANEPAE ---
ANE Past Medical History - Cardiovascular History Hx Hypertension: Yes Hx Arrhythmias: No Hx Chest Pain: No Hx Coronary Artery / Peripheral Vascular Disease: No Hx CHF / Valvular Disease: No Hx Palpitations: No Cardiovascular History Comment: PULMONARY HTN; HEART MURMOR - Pulmonary History Hx COPD: No Hx Asthma/Reactive Airway Disease: No Hx Recent Upper Respiratory Infection: No Hx Oxygen in Use at Home: Yes O2 in Use at Home (L/minute): 2l at noc Hx Sleep Apnea: No Sleep Apnea Screening Result - Last Documented: Negative Pulmonary History Comment: PE 02/2015 POST SURGERY 01/2015. HYPOXIA/APNEA HS OXYGEN - Neurologic History Hx Cerebrovascular Accident: No Hx Seizures: No Hx Dementia: No Neurologic History Comment: CONCUSSION 03/2016 - Endocrine History Hx Diabetes: No Endocrine History Comment: HYPOTHYROID - Renal History Hx Renal Disorders: Yes Renal History Comment: CHRONIC KIDNEY DISEASE, HX OF FREQUENT UTI-S - Liver History Hx Hepatic Disorders: No - Neurological & Psychiatric Hx Hx Neurological and Psychiatric Disorders: No - Cancer History Hx Cancer: No - Congenital Disorder History Hx Congenital Disorders: No - GI History Hx Gastrointestinal Disorders: Yes Gastrointestinal History Comment: COLITIS; CONSTIPATION, IMPACTIONS; POLY REMOVAL DURING COLONOSCOPY - Other Health History Other Health History: DDD. VERTIGO. GOUT. MACULAR DEGENERATION - Chronic Pain History Chronic Pain: Yes (BACK) - Surgical History Prior Surgeries: CARPAL TUNNEL SURG,. SHOULDER SURG,. B KNEE REPLACEMENT;. KIDNEY DISEASE,. BACK surg, COLITIS,. hip replacement; L arm fx w/ fusion;. neck discectomy w/ fusion;. WISDOM TEETH EXTRACTION; UPPER DENTURES; PARTIAL HYSTERECTOMY; ANE Review of Systems Review of Systems: - Exercise capacity METS (RN): 4 METS ANE Patient History - Allergies Allergies/Adverse Reactions: codeine Allergy (Verified 08/21/17 16:01) constipation, impaction, nausea NSAIDS (Non-Steroidal Anti-Inflamma Allergy (Verified 08/21/17 16:01) kidney disfunction Opioids - Morphine Analogues Allergy (Verified 08/21/17 16:01) constipation, impactions, nausea tramadol Allergy (Verified 08/21/17 16:01) Rash - Home Medications Home Medications: Allopurinol [Allopurinol 300 MG (RX)] 300 mg PO DAILY@12 01/31/15 [Last Taken ] Budesonide [Entocort EC] 3 - 9 mg PO DAILY 01/31/15 [Last Taken 09/04/17 06:00] Cyanocobalamin [Vitamin B12 (*)] 1,000 mcg PO DAILY@12 01/31/15 [Last Taken ] Levothyroxine [Synthroid 88 mcg (*)] 88 mcg PO DAILY06 06/23/16 [Last Taken 06:00] Lisinopril [Zestril 10 mg (*)] 10 mg PO DAILY 06/23/16 [Last Taken 09/03/17] Potassium Cl [Klor-Con 20 meq (*)] 20 meq PO DAILY@12 06/23/16 [Last Taken 08/29] Acetaminophen [Tylenol ES 500 mg (*)] 500 - 1,000 mg PO Q8HRS PRN 07/05/17 [ Last Taken 09/03/17 19:00] C/E/Zn/Cu/OM3/DHA/EPA/LUT/ZEAX [Preservision Areds 2 Softgel] 1 each PO BID [Last Taken 08/28/17] Furosemide [Lasix 20 MG (*)] 20 mg PO DAILY 07/05/17 [Last Taken 08/28/17] Glucosamine Sulfate [Glucosamine Sulfate 500 MG (*)] 1,000 mg PO DAILY 07/05/17 [Last Taken 08/28/17] Multivitamins [Multivitamin (*)] 1 each PO DAILY 07/05/17 [Last Taken 08/28/17] Vitamin B Complex [B Complex] 1 each PO DAILY 07/05/17 [Last Taken 08/28/17] Warfarin Sodium [Coumadin 4MG (*)] 4 mg PO MOTUWEFRSA@17 07/05/17 [Last Taken ] cycloSPORINE 0.05% [Restasis Opht Drops(*)] 1 drop EACHEYE BID 07/05/17 [Last Taken 09/04/17 06:00] Metoprolol Tartrate [Lopressor 50 mg (*)] 50 mg PO BID 08/21/17 [Last Taken 06:00] Warfarin Sodium [Coumadin 5MG (*)] 5 mg PO SUTH@17 08/21/17 [Last Taken 08/30/17 ] - NPO status NPO Since - Liquids (Date): 09/04/17 NPO Since - Liquids (Time): 06:00 NPO Since - Solids (Date): 09/03/17 NPO Since - Solids (Time): 19:00 - Smoking Hx Smoking Status: Never smoked - Family Anes Hx Family Hx Anesthesia Complications: NONE ANE Labs/Vital Signs - Labs Result Diagrams: 09/04/17 09:25 - Vital Signs Blood Pressure: 178/89 Heart Rate: 71 Respiratory Rate: 16 O2 Sat (%): 94 Height: 162.56 cm Weight: 61.235 kg ANE Physical Exam - Airway Mallampati Score: Class 2 Mouth exam: dentures - ASA Status ASA Status: III ANE Anesthesia Plan Anesthesia Plan: general endotracheal anesthesia
[2017-09-04] MEDS ORDERED: PROPOFOL 200 MG/20 ML VIAL ONE (10:44)
[2017-09-04] MEDS ORDERED: fentaNYL 100 MCG/2 ML INJ ONE ×2 (10:44→15:46)
[2017-09-04] MEDS ORDERED: PROPOFOL/EMULSION 500 MG/50 ML BOTTLE IV ONE ×2 (10:44→14:28)
[2017-09-04] MEDS ORDERED: morphINE PF 5 MG/10 ML INJ ONE (14:28)
[2017-09-04] MEDS ORDERED: ACETAMINOPHEN 500 MG TAB PO PRN (16:01)
[2017-09-04] MEDS ORDERED: LR 500 ML IV PRN (16:02)
[2017-09-04] MEDS ORDERED: PHENYLEPHRINE HCL 100 MCG/ML SYR IVP PRN (16:02)
[2017-09-04] MEDS ORDERED: fentaNYL 100 MCG/2 ML INJ IVP PRN (16:02)
[2017-09-04] MEDS ORDERED: NALOXONE HCL 0.4 MG/ML INJ IVP PRN (16:02)
[2017-09-04] MEDS ORDERED: HYDROmorphONE/DILAUDID 1 MG/ML INJ IVP PRN ×2 (16:02→16:04)
[2017-09-04] MEDS ORDERED: ONDANSETRON 4 MG/2 ML VIAL IVP PRN (16:02)
[2017-09-04] MEDS ORDERED: POLYETHYLENE GLYCOL 3350 17 GM PKT PO PRN (16:04)
[2017-09-04] MEDS ORDERED: MAGNESIUM HYDROXIDE 30 ML UDCUP PO PRN (16:04)
[2017-09-04] MEDS ORDERED: diphenhydrAMINE 25 MG CAP PO PRN (16:04)
[2017-09-04] MEDS ORDERED: LACTULOSE 20 GM/30 ML UDCUP PO PRN (16:04)
[2017-09-04] MEDS ORDERED: BISACODYL 10 MG SUPP PR PRN (16:04)
[2017-09-04] MEDS ORDERED: PROMETHAZINE HCL 25 MG/ML INJ IVP PRN (16:04)
--- NOTE | 2017-09-04 16:05 | POSTANESTH ---
Post Anesthetic Evaluation Cardiovascular Status: Similar to Pre-Op Cond Respiratory Status: Normal, Stable Level of Consciousness/Mental Status: Can Participate in Eval Pain Control: Adequate, Prn Tx Ordered Nausea/Vomiting Control: Adequate, Prn Tx Ordered Complications Possibly Related to Anesthesia: None Noted
[2017-09-04] MEDS ORDERED: traMADol 50 MG TAB PO PRN (16:08)
[2017-09-04] MEDS ORDERED: DIAZEPAM 5 MG/ML 1 ML SYR IVP PRN (16:10)
--- NOTE | 2017-09-04 16:17 | POSTOPPROG ---
Post Op Note Date of Operation: 09/04/17 Surgeon: Sarah Drake Drying Tunnel Operator: Zana Drake PA-C Anesthesiologist: García Anesthesia: GET(General Endotracheal) Pre-op Diagnosis: lumbar stenosis Post-op Diagnosis: same Indication: nerve compression Procedure: L3-5 laminectomy/TLIF/PSF Findings: Please see dictation Inf/Abcess present in the surg proc area at time of surgery?: No Depth: Organ Space EBL: 100-500 Complications: none Drains: Blayne Staley Specimen(s): synovial cyst LUIS Addendum - Addendum .: S: Pt in PACU, denies pain O: AAOx3 NAD VSS MAEx4 Motor 5/5 BUE/BLE +LT Incision cdi dressed JPx1 Solorio in A: 82 yo F s/p L3-5 laminectomy/TLIF/PSF P: PT/OT Pain management TEDs, SCDs, lovenox POD#1 Post op xrays pending Brace when OOB Bowel protocol Call NS with any Qs Dw Dr Comer
[2017-09-04] MEDS ORDERED: HYDROmorphONE/DILAUDID 2 MG/ML INJ IVP PRN ×2 (16:30→17:00)
--- NOTE | 2017-09-04 17:25 | GOP ---
[f rep st] OPERATIVE REPORT DATE OF OPERATION: 09/04/2017 SURGEON: Ayush Comer MD BOND MANAGER: AARON Bates. ANESTHESIA: General. PREOPERATIVE DIAGNOSIS: 1. L3-L4 and L4-L5 spondylolisthesis. 2. Severe spinal stenosis. 3. 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 4. Right lower extremity radiculopathy with lateral recess and foraminal stenosis at L3-4, L4-L5. 5. Low back pain. 6. Treatment refractory to nonoperative management. POSTOPERATIVE DIAGNOSIS: 1. L3-L4, L4-L5 spondylolisthesis. 2. Severe spinal stenosis. 3. 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 4. Right lower extremity radiculopathy with lateral recess and foraminal stenosis at L3-4, L4-L5. 5. Low back pain. 6. Treatment refractory to nonoperative management. PROCEDURE PERFORMED: 1. Posterior arthrodesis with approach to L3, L4, and L5. 2. Posterolateral fusion with bilateral pedicle screw placement, L3, L4, and L5 from [employer]dCurity[employer] 4.75 system. 3. Posterolateral fusion on the left between L3 and L5 with morselized autograft and allograft. 4. Decompressive laminectomy with bilateral medial facetectomies, L4-L5. 5. Re-do decompressive laminectomy with bilateral medial facetectomies and epidural synovial cyst resection L3-L4. 6. Right-sided L3-L4 transforaminal lumbar interbody fusion with a 22 x 7 titanium coated PEEK cage filled with morselized autograft and allograft. 7. Right-sided L4-L5 transforaminal lumbar interbody fusion with a 22 x 7 titanium coated PEEK cage filled with morselized autograft and allograft. 8. Use of intraoperative 3D Stealth navigation. 9. Use of intraoperative fluoroscopy, less than 1 hour physician time. 10. Use of neuromonitoring. 11. Use of the operating microscope. 12. Injection of preservative-free intrathecal narcotics. FINDINGS: per imaging COMPLICATIONS: None. SPECIMENS: Epidural lesion was sent from the L3-L4 level to Pathology. ESTIMATED BLOOD LOSS: 200 mL. INDICATIONS: The patient is an 82-year-old woman who has undergone prior right- sided L3-4 discectomy several years ago from which she did quite well. She presented with worsening low back pain and radiculopathy, and has evidence of severe spinal stenosis L3-L4, L4-L5 with lateral recess and foraminal stenosis. After discussion of the risks, benefits, and treatment alternatives, after failing nonoperative interventions, we decided to proceed forth with surgery as described above. DESCRIPTION OF PROCEDURE: Patient was brought to the operating theater, and underwent general endotracheal anesthesia without complications. Venodynes, MICHELLE hose, and the appropriate lines were placed by Anesthesia. She was flipped prone to the Blayne table, and all bony processes inspected and padded. The previous lumbar incision was identified and marked more cranially and caudally. This area then prepped and draped in the usual sterile surgical fashion. A time-out was completed per protocol, and the patient received antibiotics within 1 hour of incision. The incision was infiltrated with Marcaine with epinephrine and then taken down with the scalpel blade. Using the monopolar, the incision was taken down midline through the lumbodorsal fascia, and a subperiosteal dissection carried out to the transverse processes of L3, L4, L5 bilaterally. Care was taken to preserve the L2-3 facet joint. Care was also taken to avoid the previous hemilaminotomy defect, L3-L4. We attached the 3D Stealth navigation clamp to the spinous process of L4, and completed a 3D Stealth navigation spin. Using 3D Stealth navigation, we placed the ems helicopter pilot holes for the bilateral pedicle screws into L3, L4, and L5. All holes were manually palpated with no evidence of any cortical breaches. We then tapped and placed 6.5 x 55 mm screw on the left at L3, 6.5 x 50 mm screw on the right at L3, bilaterally in L4, and 6.5 x 45 mm screws bilaterally in L4, all from the Medtronic Solera 4.75 system. Another 3D Stealth navigation spin demonstrated good placement of the hardware. At this point, the microscope was brought into the field to assist with microscopic dissection and to maintain illumination and magnification. Using a combination of the bur tip on the drill bit, Kerrison punches, and Leksell rongeur, we completed a decompressive laminectomy, L3-L4 and L4-L5. It was a re -do decompression at L3-L4 level from the previous hemilaminotomy defect. The tissue was noted to be extremely scarred and adherent at this level. While resecting the tissues at the L3-L4 and L4-L5 level, she was noted to have a synovial cyst and epidural hematoma within the epidural space which we also resected. Then sent the cyst off to Pathology for permanent analysis. After completing the bilateral lateral recess decompressions, we completed an aggressive facetectomy on the right L3-L4 and L4-L5. We then moved up to L3-L4 where we distracted the L3-L4 disk space and completed a right-sided L3-4 discectomy. We also reached across the midline in the underside of the thecal sac which was adherent on the left side and scarred in to remove part of the known left-sided L3-4 disk herniation based on the MRI scans. We prepared the cartilaginous endplates, and measured the interbody space. We placed a 22 x 7 mm titanium-coated PEEK cage filled with morselized autograft and allograft anteriorly towards the midline. We packed additional morcellized autograft into the disk space for the interbody fusion. We let down distraction and moved down to L4-5 where we distracted the L4-5 disk and completed a right- sided L4-5 discectomy. We prepared the cartilaginous endplates and measured the interbody space. We then placed a 22 x 7 titanium-coated PEEK cage filled with morselized autograft and allograft anteriorly and towards the midline. We packed additional morcellized autograft into the disk space for the interbody fusion. We then let down distraction and decorticated the bone on the left side between L3 and L5. We placed 2 lordotic rods into the heads of the screws between L3 and L5 and secured them down with cap screws which were tightened per the protective signal installer helper's setting. We injected preservative-free intrathecal narcotics and placed morselized autograft and allograft on the left side between L3 and L5 for the posterolateral fusion. A drain was left in the subfascial space and the wound then closed in multiple layers using Vicryl sutures for the deep layers and Dermabond for the skin. The patient's wounds were dressed sterilely. She was then awakened, extubated, and taken to the recovery room in stable condition. There were no complications and no noted changes on neuromonitoring throughout the procedure. /[id number]/MODL MTDD
[2017-09-04] MEDS: POLYETHYLENE GLYCOL 3350 17 GM PKT PO SCH (20:06)
[2017-09-04] MEDS: PRESERVISION AREDS2 FORMULA EYE VIT 1 EACH PO SCH (20:08)
[2017-09-04] MEDS: METOPROLOL TARTRATE 50 MG TAB PO SCH (20:08)
[2017-09-04] MEDS: SENNOSIDES/DOCUSATE SODIUM TAB PO SCH (20:08)
[2017-09-04] MEDS: METHOCARBAMOL 750 MG TAB PO PRN (20:08)
[2017-09-04] MEDS: FAMOTIDINE 20 MG TAB PO SCH (20:08)
[2017-09-04] MEDS: ceFAZolin 2 GM/SWFI 2 GM/20 ML SYR IVP SCH (20:09)
[2017-09-04] MEDS: NS W/ 20 KCl/L 1,000 ML IV SCH (20:11)
[2017-09-04] MEDS: ACETAMINOPHEN 500 MG TAB PO SCH (22:29)
[2017-09-04] MEDS: cycloSPORINE 0.05% 30 DROPERETTE/BOX EACHEYE SCH (22:41)
[2017-09-05] MEDS: ceFAZolin 2 GM/SWFI 2 GM/20 ML SYR IVP SCH (03:35)
[2017-09-05] MEDS ORDERED: NS 500 ML IV ONE (04:00)
[2017-09-05] MEDS: ONDANSETRON DISINTEGRATING 4 MG TAB PO PRN ×2 (05:28→16:45)
[2017-09-05] MEDS: ACETAMINOPHEN 500 MG TAB PO SCH ×3 (05:28→23:44)
[2017-09-05] MEDS: LEVOTHYROXINE 88 MCG TAB PO SCH (05:28)
[2017-09-05] MEDS: HYDROCODONE/APAP 5/325 TAB PO PRN ×4 (05:28→21:26)
--- NOTE | 2017-09-05 07:51 | SOAPPROG ---
SOAP Progress Note Assessment/Plan: Assessment: 82 yo female POD #1 status post L3-5 laminectomy and fusion. Preop leg pain improved BP low this AM. She recieved 500ml bolus overnight and will give another this AM. I spoke to RN Edelmira this AM about this. Plan: Will obtain CBC, BMP. Bolus with another 500ml NS and follow BP. Keep CHINTAN in place DC Solorio this AM Needs post op lumbar xrays when she can tolerate. PT/OT DC planning Subjective: lying in bed, pain well controlled. States her preop leg pain is improved Denies new numbness, tingling or weakness. Objective: Vital Signs Temp Pulse Resp BP Pulse Ox 36.7 C 64 16 85/49 L 97 09/05/17 07:30 09/05/17 07:30 09/05/17 07:30 09/05/17 07:30 09/05/17 07:30 Laboratory Results 09/04/17 09:25 09/04/17 09/05/17 09/06/17 05:59 05:59 05:59 Intake Total 2530 Output Total 1200 Balance 1330 PT 14.6 SEC (12.0-15.0) 09/04/17 09:25 INR 1.12 (0.83-1.16) 09/04/17 09:25 Neuro: A+Ox3 Follows commands, speech clear 5/5 Bilat LE, sens +LT throughout Dressing CDI CHINTAN: 550ml ICD10 Worksheet Patient Problems: Problems Problem Status Onset Intractable low back pain Acute Polypharmacy Acute Pulmonary embolism Acute Radicular low back pain Acute
[2017-09-05] MEDS ORDERED: NS 1,000 ML IV SCH (08:00)
[2017-09-05] MEDS: NS W/ 20 KCl/L 1,000 ML IV SCH (08:32)
[2017-09-05] MEDS: PRESERVISION AREDS2 FORMULA EYE VIT 1 EACH PO SCH ×2 (08:34→21:27)
[2017-09-05] MEDS: POLYETHYLENE GLYCOL 3350 17 GM PKT PO SCH ×3 (08:34→23:45)
[2017-09-05] MEDS: MULTIVITAMINS 1 EACH TAB PO SCH (08:34)
[2017-09-05] MEDS: SENNOSIDES/DOCUSATE SODIUM TAB PO SCH ×2 (08:34→21:27)
[2017-09-05] MEDS: FAMOTIDINE 20 MG TAB PO SCH ×2 (08:35→21:27)
[2017-09-05] MEDS: METHOCARBAMOL 750 MG TAB PO PRN ×2 (08:48→18:39)
[2017-09-05] MEDS: VITAMIN B COMPLEX 1 EA CAP/TAB PO SCH (08:48)
[2017-09-05] MEDS ORDERED: VITAMIN B COMPLEX 1 EA CAP/TAB PO SCH (09:00)
[2017-09-05] MEDS: BUDESONIDE 3 MG EC CAP PO SCH (09:29)
[2017-09-05] MEDS: LISINOPRIL 10 MG TAB PO SCH (11:02)
[2017-09-05] MEDS: METOPROLOL TARTRATE 50 MG TAB PO SCH ×2 (11:02→21:27)
[2017-09-05] MEDS: FUROSEMIDE 20 MG TAB PO SCH (11:03)
[2017-09-05] MEDS: POTASSIUM CL 20 MEQ TAB PO SCH (12:34)
[2017-09-05] MEDS: ALLOPURINOL 300 MG TAB PO SCH (12:34)
[2017-09-05] MEDS: CYANO/VITAMIN B12 1000 MCG TAB PO SCH (12:34)
[2017-09-05] MEDS: cycloSPORINE 0.05% 30 DROPERETTE/BOX EACHEYE SCH ×2 (12:35→21:46)
--- NOTE | 2017-09-05 14:57 | ASMTCMCOM ---
CM Note CM Note Notes: Pt s/p L3-5 lami and fusion, PT rec SNF currently. Spoke w pt and dghtr Anca about SNF: [facility] female beds, pt #2 choice is [facility] as it is close to dghtr Anca. Pt has been to in the past and [facility], she would not want to go to [facility] again due to poor nursing care. Referrals sent in [employer] to (in case female bed opens) and [facility]. CM to follow for d/c planning. Date Signed: 09/05/2017 02:56 PM Electronically Signed By:KATHI King
[2017-09-05] MEDS: ENOXAPARIN 40 MG/0.4 ML SYR SC SCH (17:21)
[2017-09-06] MEDS: METHOCARBAMOL 750 MG TAB PO PRN (01:06)
[2017-09-06] MEDS: HYDROCODONE/APAP 5/325 TAB PO PRN ×5 (01:45→20:24)
[2017-09-06] MEDS ORDERED: NS 1,000 ML IV SCH (05:30)
[2017-09-06] MEDS ORDERED: NS BOLUS 500 ML (Wide open) IV ONE (05:30)
[2017-09-06] MEDS: ONDANSETRON DISINTEGRATING 4 MG TAB PO PRN (05:58)
[2017-09-06] MEDS: LEVOTHYROXINE 88 MCG TAB PO SCH (05:58)
[2017-09-06] MEDS: ACETAMINOPHEN 500 MG TAB PO SCH ×3 (07:47→20:22)
[2017-09-06] MEDS: ENOXAPARIN 40 MG/0.4 ML SYR SC SCH (09:11)
[2017-09-06] MEDS: cycloSPORINE 0.05% 30 DROPERETTE/BOX EACHEYE SCH ×2 (10:13→20:39)
[2017-09-06] MEDS: VITAMIN B COMPLEX 1 EA CAP/TAB PO SCH (10:14)
[2017-09-06] MEDS: PRESERVISION AREDS2 FORMULA EYE VIT 1 EACH PO SCH ×2 (10:14→20:20)
[2017-09-06] MEDS: LISINOPRIL 10 MG TAB PO SCH (10:15)
[2017-09-06] MEDS: FAMOTIDINE 20 MG TAB PO SCH ×2 (10:15→20:25)
[2017-09-06] MEDS: FUROSEMIDE 20 MG TAB PO SCH (10:15)
[2017-09-06] MEDS: METOPROLOL TARTRATE 50 MG TAB PO SCH ×2 (10:16→20:24)
[2017-09-06] MEDS: POLYETHYLENE GLYCOL 3350 17 GM PKT PO SCH ×3 (10:20→20:39)
[2017-09-06] MEDS: SENNOSIDES/DOCUSATE SODIUM TAB PO SCH ×2 (10:20→20:23)
[2017-09-06] MEDS: BUDESONIDE 3 MG EC CAP PO SCH (10:20)
[2017-09-06] MEDS: ONDANSETRON 4 MG/2 ML VIAL IVP PRN ×2 (10:24→20:34)
--- NOTE | 2017-09-06 10:25 | NEUSURGPN ---
<Jessica Justin - Last Filed: 09/06/17 10:26> Assessment/Plan: Assessment/Plan: Assessment: 82 yo female POD #3 status post L3-5 laminectomy and fusion. Plan: BP low overnight by asymptomatic -BP better this am. Will advance with PT this morning as tolerated Keep CHINTAN in place until tomorrow morning per Dr. Comer. Output 160 overnight DVT: TEDs, SCDs, Lovenox. Ok to restart Coumadin POD #5 Needs post op lumbar xrays when she can tolerate. PT/OT- Needs encouragement to be up and out of bed today. DC planning- Likely will need SNF/Rehab Subjective: lying in bed, pain well controlled in bed but shoots to 9/10 when getting out of bed. Stil has not been up to the bathroom, only commode and has not walked in the hallway. Leg pain improved. Catheter Insertion Date: 09/04/17 - Physician Discussed Patient with Dr.: Comer Neurosurgery Physical Exam - Vitals, I&O, Labs I and O 09/05/17 09/06/17 09/07/17 05:59 05:59 05:59 Intake Total 2530 1150 Output Total 1200 1310 Balance 1330 -160 Weight 61.235 kg Intake: Oral (ml) 530 700 IV Intake (ml) 2000 IV Infused (ml) 150 Ns 1,000 ml @ 75 mls/hr 150 IV CONT JOHN Rx#: [id number] Packed Red Blood Cells ( 300 ml) Output: Urine (ml) 450 1150 Bedside Commode 150 Catheter 450 1000 Estimated Blood Loss (ml) 200 CHINTNA Drain Output (ml) 550 160 #1 Posterior Back Blayne 550 160 Staley Other: Number of Stools Bedside Commode 1 Vital Signs Temp Pulse Resp BP Pulse Ox 37.0 C 78 16 130/82 H 94 09/06/17 08:00 09/06/17 09:25 09/06/17 08:00 09/06/17 09:25 09/06/17 08:00 Laboratory Results 09/05/17 10:51 09/05/17 10:51 ICD10 Worksheet Patient Problems: Problems Problem Status Onset Intractable low back pain Acute Polypharmacy Acute Pulmonary embolism Acute Radicular low back pain Acute <Ayush Comer - Last Filed: 09/06/17 10:44> Assessment/Plan: I met with the patient and her daughter today. She is dong well from a pain standpoint. No leg pain. Having some issues with dizziness and hypotension. Will try therapies today and dc CHINTAN drain tomorrow. Dc planning to rehab likely in the next 1-2 days. All questions answered and she was pleased with her progress. Neurosurgery Physical Exam - Vitals, I&O, Labs I and O 09/05/17 09/06/17 09/07/17 05:59 05:59 05:59 Intake Total 2530 1150 Output Total 1200 1310 Balance 1330 -160 Weight 61.235 kg Intake: Oral (ml) 530 700 IV Intake (ml) 2000 IV Infused (ml) 150 Ns 1,000 ml @ 75 mls/hr 150 IV CONT JOHN Rx#: [id number] Packed Red Blood Cells ( 300 ml) Output: Urine (ml) 450 1150 Bedside Commode 150 Catheter 450 1000 Estimated Blood Loss (ml) 200 CHINTAN Drain Output (ml) 550 160 #1 Posterior Back Blayne 550 160 Staley Other: Number of Stools Bedside Commode 1 Vital Signs Temp Pulse Resp BP Pulse Ox 37.0 C 72 16 114/72 94 09/06/17 08:00 09/06/17 10:16 09/06/17 08:00 09/06/17 10:16 09/06/17 08:00 Laboratory Results 09/05/17 10:51 09/05/17 10:51
[2017-09-06] MEDS: MULTIVITAMINS 1 EACH TAB PO SCH (10:34)
[2017-09-06] MEDS: CYANO/VITAMIN B12 1000 MCG TAB PO SCH (13:53)
[2017-09-06] MEDS: ALLOPURINOL 300 MG TAB PO SCH (13:54)
[2017-09-06] MEDS: POTASSIUM CL 20 MEQ TAB PO SCH (13:54)
--- NOTE | 2017-09-06 16:23 | ASMTCMCOM ---
CM Note CM Note Notes: Today pt requests referral to [facility], they accept pt. [facility] confirms they still have no beds. [facility] completed on-site w pt today. D/c plan of care: SNF, [facility] or [facility] when medically stable. Date Signed: 09/06/2017 04:22 PM Electronically Signed By:KATHI King
[2017-09-07] MEDS: HYDROCODONE/APAP 5/325 TAB PO PRN ×5 (05:03→22:13)
[2017-09-07] MEDS: LEVOTHYROXINE 88 MCG TAB PO SCH (05:03)
[2017-09-07] MEDS: ONDANSETRON 4 MG/2 ML VIAL IVP PRN ×2 (05:04→08:51)
[2017-09-07] MEDS: ACETAMINOPHEN 500 MG TAB PO SCH ×3 (06:13→22:10)
--- NOTE | 2017-09-07 08:34 | NEUSURGPN ---
Assessment/Plan: 82 yo female POD #3 status post L3-5 laminectomy and fusion. Plan: DC belem drain Hypotension - somewhat improved. On BB vidhya but ACEi held. Recheck labs today DVT: TEDs, SCDs, Lovenox. Ok to restart Coumadin POD #5 Needs post op lumbar xrays when she can tolerate. PT/OT- Needs encouragement to be up and out of bed today. DC planning- Likely will need SNF/Rehab tomorrow if ready Pt seen by Dr Comer as well this AM Call NS with any questions Subjective: Pt resting in bed, states she got up to the bathroom this AM without dizziness. Objective: AAOx3 NAD VSS MAEx4 Motor 5/5 BLE +LT Urinary Catheter in Place: No Catheter Insertion Date: 09/04/17 - Physician Discussed Patient with DrAvelina: Nahomi Patient Seen by : Nahomi Neurosurgery Physical Exam - Vitals, I&O, Labs I and O 18 09/07/18 09/08/17 05:59 05:59 05:59 Intake Total 1150 2750 Output Total 1310 530 Balance -160 2220 Intake: Oral (ml) 700 2750 IV Infused (ml) 150 Ns 1,000 ml @ 75 mls/hr 150 IV CONT JOHN Rx#: [id number] Packed Red Blood Cells ( 300 ml) Output: Urine (ml) 1150 500 Bedside Commode 150 500 Catheter 1000 BELEM Drain Output (ml) 160 30 #1 Posterior Back Blayne 160 30 Staley Other: Intake Quantity Yes Sufficient Number of Voids Bedside Commode 1 Toilet 2 Number of Stools Bedside Commode 1 Catheter 1 Vital Signs Temp Pulse Resp BP Pulse Ox 36.9 C 72 14 124/73 H 94 09/07/17 07:46 09/07/17 07:46 09/07/17 07:46 09/07/17 07:46 09/07/17 07:46 Laboratory Results 09/05/17 10:51 09/05/17 10:51 ICD10 Worksheet Patient Problems: Problems Problem Status Onset Intractable low back pain Acute Polypharmacy Acute Pulmonary embolism Acute Radicular low back pain Acute
[2017-09-07] MEDS: VITAMIN B COMPLEX 1 EA CAP/TAB PO SCH (08:54)
[2017-09-07] MEDS: SENNOSIDES/DOCUSATE SODIUM TAB PO SCH ×2 (08:54→22:12)
[2017-09-07] MEDS: MULTIVITAMINS 1 EACH TAB PO SCH (08:54)
[2017-09-07] MEDS: PRESERVISION AREDS2 FORMULA EYE VIT 1 EACH PO SCH ×2 (08:54→22:10)
[2017-09-07] MEDS: FUROSEMIDE 20 MG TAB PO SCH (08:55)
[2017-09-07] MEDS: FAMOTIDINE 20 MG TAB PO SCH ×2 (08:55→22:13)
[2017-09-07] MEDS: POLYETHYLENE GLYCOL 3350 17 GM PKT PO SCH ×3 (08:55→23:41)
[2017-09-07] MEDS: LISINOPRIL 10 MG TAB PO SCH (08:55)
[2017-09-07] MEDS: ENOXAPARIN 40 MG/0.4 ML SYR SC SCH (08:56)
[2017-09-07] MEDS: BUDESONIDE 3 MG EC CAP PO SCH (08:56)
[2017-09-07] MEDS: METOPROLOL TARTRATE 50 MG TAB PO SCH ×2 (08:56→22:13)
[2017-09-07] MEDS: METHOCARBAMOL 750 MG TAB PO PRN ×2 (10:27→16:30)
[2017-09-07] MEDS: ONDANSETRON DISINTEGRATING 4 MG TAB PO PRN ×3 (13:05→22:12)
[2017-09-07] MEDS: POTASSIUM CL 20 MEQ TAB PO SCH (13:07)
[2017-09-07] MEDS: ALLOPURINOL 300 MG TAB PO SCH (13:07)
[2017-09-07] MEDS: CYANO/VITAMIN B12 1000 MCG TAB PO SCH (13:08)
--- NOTE | 2017-09-07 16:37 | ASMTCMCOM ---
CM Note CM Note Notes: Today pt and dghtr choose [facility] for d/c, [facility] notified to release bed. Pt to d/c when medically stable. Date Signed: 09/07/2017 04:36 PM Electronically Signed By:KATHI King
[2017-09-07] MEDS: cycloSPORINE 0.05% 30 DROPERETTE/BOX EACHEYE SCH ×2 (19:21→22:09)
[2017-09-07 23:57] VITALS: TEMP 97.8
[2017-09-08] MEDS: LEVOTHYROXINE 88 MCG TAB PO SCH (05:21)
[2017-09-08] MEDS: ONDANSETRON DISINTEGRATING 4 MG TAB PO PRN ×2 (05:21→11:33)
[2017-09-08] MEDS: HYDROCODONE/APAP 5/325 TAB PO PRN ×2 (05:22→11:34)
[2017-09-08] MEDS: ACETAMINOPHEN 500 MG TAB PO SCH ×2 (05:24→12:57)
[2017-09-08 08:00] VITALS: BP 125/88; PULSE 84; RESP 14; O2SAT 94
[2017-09-08] MEDS: BUDESONIDE 3 MG EC CAP PO SCH (08:19)
[2017-09-08] MEDS: FUROSEMIDE 20 MG TAB PO SCH (08:19)
[2017-09-08] MEDS: METOPROLOL TARTRATE 50 MG TAB PO SCH (08:19)
[2017-09-08] MEDS: MULTIVITAMINS 1 EACH TAB PO SCH (08:19)
[2017-09-08] MEDS: VITAMIN B COMPLEX 1 EA CAP/TAB PO SCH (08:19)
[2017-09-08] MEDS: FAMOTIDINE 20 MG TAB PO SCH (08:19)
[2017-09-08] MEDS: LISINOPRIL 10 MG TAB PO SCH (08:20)
[2017-09-08] MEDS: PRESERVISION AREDS2 FORMULA EYE VIT 1 EACH PO SCH (08:20)
[2017-09-08] MEDS: SENNOSIDES/DOCUSATE SODIUM TAB PO SCH (08:21)
[2017-09-08] MEDS: ENOXAPARIN 40 MG/0.4 ML SYR SC SCH (08:21)
[2017-09-08] MEDS: cycloSPORINE 0.05% 30 DROPERETTE/BOX EACHEYE SCH (08:24)
[2017-09-08] MEDS: POLYETHYLENE GLYCOL 3350 17 GM PKT PO SCH (08:39)
[2017-09-08] MEDS: METHOCARBAMOL 750 MG TAB PO PRN (11:33)
--- NOTE | 2017-09-08 11:55 | SOAPPROG ---
SOAP Progress Note Assessment/Plan: Assessment: 82 yo female POD status post L3-5 laminectomy and fusion on 09/03 leg pain improved doing well and ready for rehab today Plan: LSO when OOB DC to rehab today to [facility] 09/08/17 11:55 Subjective: out of bed in chair about to work with PT Doing well and eager to go to rehab leg pain improved Objective: Vital Signs Temp Pulse Resp BP Pulse Ox 36.6 C 84 14 125/88 H 94 09/08/17 07:58 09/08/17 07:58 09/08/17 07:58 09/08/17 07:58 09/08/17 07:58 Laboratory Results 09/07/17 08:49 09/07/17 08:49 09/07/17 09/08/17 09/09/17 05:59 05:59 05:59 Intake Total 2750 2470 750 Output Total 530 5 Balance 2220 2465 750 PT 14.6 SEC (12.0-15.0) 09/04/17 09:25 INR 1.12 (0.83-1.16) 09/04/17 09:25 Synovial cyst pathology = synovial cyst Post op xrays show well positioned hardware L3-5 ICD10 Worksheet Patient Problems: Problems Problem Status Onset Intractable low back pain Acute Polypharmacy Acute Pulmonary embolism Acute Radicular low back pain Acute
[2017-09-08] MEDS: CYANO/VITAMIN B12 1000 MCG TAB PO SCH (12:01)
[2017-09-08] MEDS: POTASSIUM CL 20 MEQ TAB PO SCH (12:01)
[2017-09-08] MEDS: ALLOPURINOL 300 MG TAB PO SCH (12:01)
--- NOTE | 2017-09-08 12:08 | PDIAF ---
- Diagnosis Diagnosis: synovial cyst, lumbar DJD Code Status: Full Code - Medication Management Discharge Medications: Medications to Continue on Transfer Allopurinol [Allopurinol 300 MG (RX)] 300 mg PO DAILY@12 01/31/15 [Last Taken ] Budesonide [Entocort EC] 3 - 9 mg PO DAILY 01/31/15 [Last Taken 09/04/17 06:00] Cyanocobalamin [Vitamin B12 (*)] 1,000 mcg PO DAILY@12 01/31/15 [Last Taken ] Levothyroxine [Synthroid 88 mcg (*)] 88 mcg PO DAILY06 06/23/16 [Last Taken 06:00] Lisinopril [Zestril 10 mg (*)] 10 mg PO DAILY 06/23/16 [Last Taken 09/03/17] Potassium Cl [Klor-Con 20 meq (*)] 20 meq PO DAILY@12 06/23/16 [Last Taken 08/29] Acetaminophen [Tylenol ES 500 mg (*)] 500 - 1,000 mg PO Q8HRS PRN 07/05/17 [ Last Taken 09/03/17 19:00] C/E/Zn/Cu/OM3/DHA/EPA/LUT/ZEAX [Preservision Areds 2 Softgel] 1 each PO BID [Last Taken 08/28/17] Furosemide [Lasix 20 MG (*)] 20 mg PO DAILY 07/05/17 [Last Taken 08/28/17] Glucosamine Sulfate [Glucosamine Sulfate 500 MG (*)] 1,000 mg PO DAILY 07/05/17 [Last Taken 08/28/17] Multivitamins [Multivitamin (*)] 1 each PO DAILY 07/05/17 [Last Taken 08/28/17] Vitamin B Complex [B Complex] 1 each PO DAILY 07/05/17 [Last Taken 08/28/17] Warfarin Sodium [Coumadin 4MG (*)] 4 mg PO MOTUWEFRSA@17 07/05/17 [Last Taken ] cycloSPORINE 0.05% [Restasis Opht Drops(*)] 1 drop EACHEYE BID 07/05/17 [Last Taken 09/04/17 06:00] Metoprolol Tartrate [Lopressor 50 mg (*)] 50 mg PO BID 08/21/17 [Last Taken 06:00] Warfarin Sodium [Coumadin 5MG (*)] 5 mg PO SUTH@17 08/21/17 [Last Taken 08/30/17 ] Acetaminophen [Tylenol ES 500 mg (*)] 1,000 mg PO Q8HRS tab 09/08/17 [Last Taken Unknown] Diazepam [Valium] 5 mg IVP Q6HRS PRN syr 09/08/17 [Last Taken Unknown] Enoxaparin [Lovenox 40 MG (*)] 40 mg SC DAILY 2 Days #2 syr 09/08/17 [Last Taken Unknown] Famotidine [Pepcid 20 MG (*)] 20 mg PO BID tab 09/08/17 [Last Taken Unknown] Hydrocodone/APAP 5/325 [[place] 5/325 (*)] 1 - 2 tab PO Q4HRS PRN #90 tab [Last Taken Unknown] Methocarbamol [Robaxin 750 mg (*)] 750 mg PO QID PRN #60 tab 09/08/17 [Last Taken Unknown] Ondansetron Odt [Zofran Odt 4 mg (*)] 4 - 8 mg PO Q4HRS PRN tab 09/08/17 [Last Taken Unknown] Polyethylene Glycol 3350 [Miralax 17 gm (*)] 17 gm PO TID pkt 09/08/17 [Last Taken Unknown] Promethazine HCl [Phenergan Injection] 12.5 - 25 mg IVP Q6HRS PRN inj 09/08/17 [Last Taken Unknown] Sennosides/Docusate Sodium [Senokot-S] 1 - 2 tab PO BID tab 09/08/17 [Last Taken Unknown] diphenhydrAMINE [Benadryl 25 MG (*)] 25 - 50 mg PO Q6HRS PRN cap 09/08/17 [ Last Taken Unknown] Discharge Medications: Refer to the Discharge Home Medication list for PRN reason. - Orders Services needed: Registered Nurse, Physical Therapy, Occupational Therapy Isolation Type: None Diet Recommendation: no restrictions on diet Diet Texture: Regular Texture Diet Wound Care Instructions: check incision daily, notify neurosurgery of any drainage, redness or pain Activity/Weight Bearing Restrictions: no bending, twisting or lifting over 10 lbs x 6 weeks. wear LSO when out of bed Equipment: LSO brace - Follow Up Care Current Providers and Referrals: Antolin Nagy MD [Primary Care Provider] - Ayush Comer MD [Medical Doctor] -
--- NOTE | 2017-09-08 15:51 | ASMTCMCOM ---
CM Note CM Note Notes: Dc order received. Spoke with PA & RN. Met with pt & her daughter Anca to discuss dc poc; pt agreeable to discharging to [facility]. Spoke with Jennifer, at [facility]; bed available. Dc paperwork faxed; confirmed recieved by Hussain, at . Transportation arranged. RN, pt & Anca updated. No other needs at this time. Date Signed: 09/08/2017 03:50 PM Electronically Signed By:Jennifer Anton RN
--- NOTE | 2017-09-08 15:58 | ASDISCHSUM ---
Discharge Information Plan Status:SNF Medically Cleared to Leave:09/07/2017 Discharge Date:09/08/2017 01:34 PM D/C Disposition:[facility] Facility ADT D/C Disposition:Other Rehab, Not [facility] Projected Discharge Date:09/08/2017 01:00 PM Transportation at D/C:Wheelchair Van Discharge Delay Reason: Follow-Up Date:09/08/2017 01:00 PM Discharge Slot: Final Diagnosis: Placement Information Referral Type:*Group Home/SNF Referral ID:[facility]-[id number] Provider Name:[facility] Address 1:[address] Address 2: City:[place] Selection Factors: State:[place] Patient Contact Information Contact Name:VERONA Relationship:Daughter Address: Work Phone: City:[place] Phone: State/Zip Code:[place] Email: Financial Information Financial Class:Medicare Primary Plan Desc:MEDICARE INPATIENT Primary Plan Number:[id number] Secondary Plan Desc:[employer]ARP/MDR SUPPLEMENT Secondary Plan Number:[id number] Assessment Information [facility] CM Progress Note CM Note CM Note Notes: Pt s/p L3-5 lami and [facility], PT rec SNF currently. [facility]: pt really wants [facility] currently [facility] no female beds, pt #2 choice is [facility] as it is close to [facility]. Pt has been to in the past and [facility], she would not want to go to [facility] again due to poor nursing care. Referrals sent in [employer] to (in case female bed opens) and [facility]. CM to follow for d/c planning. Date Signed: 09/05/2017 02:56 PM Electronically Signed By:KATHI King [facility] CM Progress Note CM Note CM Note Notes: Today pt requests referral to [facility], they accept pt. [facility] confirms they still have no beds. Amarilys travis [facility] completed on-site w pt today. D/c plan of care: [facility], [facility] or [facility] when medically stable. Date Signed: 09/06/2017 04:22 PM Electronically Signed By:KATHI King [facility] CM Progress Note CM Note CM Note Notes: Today pt and dghtr choose [facility] SNF for d/c, Amarilys [facility] notified to release bed. Pt to d/c when medically stable. Date Signed: 09/07/2017 04:36 PM Electronically Signed By:KATHI King [facility] CM Progress Note CM Note CM Note Notes: Dc order received. Spoke with PA & RN. Met with pt & her daughter Anca to discuss dc poc; pt agreeable to discharging to [facility]. Spoke with Jennifer, at [facility]; bed available. Dc paperwork faxed; confirmed recieved by Hussain at . Transportation arranged. RN, pt & Anca de la torre. No other needs at this time. Date Signed: 09/08/2017 03:50 PM Electronically Signed By:Jennifer Anton RN Intervention Information Intervention Type:*IM-Signed Date of Service:09/08/2017 03:51 PM Patient Type:Inpatient Staff Member:ILIR Anton, Jennifer Hours: Discipline: Severity: Comment:
== END 2017-09-08 13:34 | DRG 455 ==
LOC: F3N 08:40
PROVIDERS: ADMIT Neurological Surgery; ATTEND Neurological Surgery
PROC: 0QB00ZX Excision of Lumbar Vertebra, Open Approach, Diagnostic (ICD-10-PCS; principal; 2017-09-04 10:15)
PROC: 01NB0ZZ Release Lumbar Nerve, Open Approach (ICD-10-PCS; principal; 2017-09-04 10:15)
PROC: 0SG1071 Fusion of 2 or more Lumbar Vertebral Joints with Autologous Tissue Substitute, Posterior Approach, Posterior Column, Open Approach (ICD-10-PCS; principal; 2017-09-04 10:15)
PROC: 00CT0ZZ Extirpation of Matter from Spinal Meninges, Open Approach (ICD-10-PCS; principal; 2017-09-04 10:15)
PROC: 0SB20ZZ Excision of Lumbar Vertebral Disc, Open Approach (ICD-10-PCS; principal; 2017-09-04 10:15)
PROC: 00NY0ZZ Release Lumbar Spinal Cord, Open Approach (ICD-10-PCS; principal; 2017-09-04 10:15)
PROC: 0SG10AJ Fusion of 2 or more Lumbar Vertebral Joints with Interbody Fusion Device, Posterior Approach, Anterior Column, Open Approach (ICD-10-PCS; principal; 2017-09-04 10:15)
DX: M43.16 Spondylolisthesis, lumbar region (principal); M48.061 Spinal stenosis, lumbar region without neurogenic claudication; M71.38 Other bursal cyst, other site; M54.16 Radiculopathy, lumbar region; N18.9 Chronic kidney disease, unspecified; I12.9 Hypertensive chronic kidney disease with stage 1 through stage 4 chronic kidney disease, or unspecified chronic kidney disease; I27.20 Pulmonary hypertension, unspecified; R01.1 Cardiac murmur, unspecified; E03.9 Hypothyroidism, unspecified; Z86.711 Personal history of pulmonary embolism; Z98.1 Arthrodesis status; Z96.649 Presence of unspecified artificial hip joint
CPT/HCPCS: 97110-GP; 97116-GP; 97161-GP; 97166-GO; 97530-GP; 97535-GO; C1713; G8978-GP-CJ; G8979-GP-CI; G8987-GO-CJ; G8988-GO-CI; J0171; J0690; J1650; J2274; J2370; J2405; J2550; J2704; J3010; J3360; J7060; P9016

== ENCOUNTER → 2017-10-18 | Outpatient (CLI) | payer OTHER, MEDICARE | LOC: BMCIMAGING 14:53 | PROVIDERS: ATTEND Physician Assistant Surgical | DX: Z09 Encounter for follow-up examination after completed treatment for conditions other than malignant neoplasm (principal); Z98.1 Arthrodesis status ==

== ENCOUNTER → 2017-11-30 | Outpatient (CLI) | payer OTHER, MEDICARE | LOC: BMCIMAGING 10:07 | PROVIDERS: ATTEND Physician Assistant | DX: M54.5 Low back pain (principal); Z98.1 Arthrodesis status ==

== ENCOUNTER 2018-01-19 12:46 | Inpatient (IN) | payer OTHER, MEDICARE ==
[2018-01-19] MEDS ORDERED: NS 500 ML IV ONE (14:21)
--- NOTE | 2018-01-19 14:22 | EDPHY ---
H & P Time Seen by Provider: 01/19/18 13:57 HPI/ROS: CHIEF COMPLAINT: C diff, weakness HISTORY OF PRESENT ILLNESS: Patient is an 82-year-old female who presents emergency department with weakness and ongoing"C diff."The patient states she was diagnosed by test with see defer so. She was started on Flagyl times 10 days. Her symptoms did not improve and she was switched to vancomycin last Sunday. She has been on vancomycin four times daily since that time. She continues to have loose, nonbloody stools. She feels fatigued and weak. She is shaky. She spoke with her primary care physician, Dr. Nagy's office, who sent her to the emergency department for admission. Patient denies fevers or chills. She has no chest pain or shortness of breath. No abdominal pain. REVIEW OF SYSTEMS: My complete review of systems is negative except as mentioned in the HPI. Past Medical/Surgical History: Includes C difficile, pulmonary hypertension, back pain, pulmonary embolus Past surgical history: Includes vasectomy, knee surgery, rotator cuff repair, hysterectomy, carpal tunnel surgery, eye surgery, total hip Social history: Patient lives at home Smoking Status: Never smoked Physical Exam: 36.6, 157/84, 56, 18, 96% on room air GENERAL: No acute distress, alert. HEENT: Eyes normal to inspection, normal pharynx, no signs of dehydration. NECK: No thyromegaly, no lymphadenopathy, supple. RESPIRATORY: Clear to auscultation bilaterally, no rales, rhonchi or wheezing. CVS: Regular rate and rhythm, no rubs, murmurs, or gallops. ABDOMEN: Soft, nontender, nondistended, no organomegaly. Benign BACK: Normal to inspection, no CVA tenderness. SKIN: Normal color, no rash, warm, dry. No pallor. EXTREMITIES: No pedal edema, no calf tenderness, no Homans sign or cords, no joint swelling. NEURO/PSYCH: Alert and oriented, normal mood and affect, normal motor sensory exam. Constitutional: Initial Vital Signs Temperature (C) 36.6 C 01/19/18 13:16 Heart Rate 56 L 01/19/18 13:16 Respiratory Rate 18 01/19/18 13:16 Blood Pressure 157/84 H 01/19/18 13:16 O2 Sat (%) 96 01/19/18 13:16 O2 Delivery Mode Room Air Allergies/Adverse Reactions: codeine Allergy (Verified 01/19/18 13:12) constipation, impaction, nausea NSAIDS (Non-Steroidal Anti-Inflamma Allergy (Verified 01/19/18 13:12) kidney disfunction Opioids - Morphine Analogues Allergy (Verified 01/19/18 13:12) constipation, impactions, nausea tramadol Allergy (Verified 01/19/18 13:12) Rash Home Medications: Medication Instructions Recorded Allopurinol [Allopurinol 300 MG 300 mg PO DAILY@12 01/31/15 (RX)] Budesonide [Entocort EC] 3 - 9 mg PO DAILY 01/31/15 Cyanocobalamin [Vitamin B12 (*)] 1,000 mcg PO DAILY@01/31/15 Levothyroxine [Synthroid 88 mcg 88 mcg PO DAILY06 06/23/16 (*)] Lisinopril [Zestril 10 mg (*)] 10 mg PO DAILY 06/23/16 Potassium Cl [Klor-Con 20 meq (*)] 20 meq PO DAILY@12 06/23/16 Acetaminophen [Tylenol ES 500 mg 500 - 1,000 mg PO Q8HRS PRN 07/05/17 (*)] C/E/Zn/Cu/OM3/DHA/EPA/LUT/ZEAX 1 each PO BID 07/05/17 [Preservision Areds 2 Softgel] Furosemide [Lasix 20 MG (*)] 20 mg PO DAILY 07/05/17 Glucosamine Sulfate [Glucosamine 1,000 mg PO DAILY 07/05/17 Sulfate 500 MG (*)] Multivitamins [Multivitamin (*)] 1 each PO DAILY 07/05/17 Vitamin B Complex [B Complex] 1 each PO DAILY 07/05/17 Warfarin Sodium [Coumadin 4MG (*)] 4 mg PO MOTUWEFRSA@17 07/05/17 cycloSPORINE 0.05% [Restasis Opht 1 drop EACHEYE BID 07/05/17 Drops(*)] Metoprolol Tartrate [Lopressor 50 50 mg PO BID 08/21/17 mg (*)] Warfarin Sodium [Coumadin 5MG (*)] 5 mg PO SUTH@17 08/21/17 Acetaminophen [Tylenol ES 500 mg 1,000 mg PO Q8HRS tab 09/08/17 (*)] Diazepam [Valium] 5 mg IVP Q6HRS PRN syr 09/08/17 Famotidine [Pepcid 20 MG (*)] 20 mg PO BID tab 09/08/17 Hydrocodone/APAP 5/325 [[place]ier 1 - 2 tab PO Q4HRS PRN #90 tab 09/08/17 5/325 (*)] Methocarbamol [Robaxin 750 mg (*)] 750 mg PO QID PRN #60 tab 09/08/17 Ondansetron Odt [Zofran Odt 4 mg 4 - 8 mg PO Q4HRS PRN tab 09/08/17 (*)] Polyethylene Glycol 3350 [Miralax 17 gm PO TID pkt 09/08/17 17 gm (*)] Promethazine HCl [Phenergan 12.5 - 25 mg IVP Q6HRS PRN inj 09/08/17 Injection] Sennosides/Docusate Sodium 1 - 2 tab PO BID tab 09/08/17 [Senokot-S] diphenhydrAMINE [Benadryl 25 MG 25 - 50 mg PO Q6HRS PRN cap 09/08/17 (*)] Vancomycin 01/19/18 Medical Decision Making ED Course/Re-evaluation: In the emergency department I discussed possible etiologies with the patient. I answered all her questions. The patient confirms that she feels too weak to be at home. She feels unsafe. An IV was placed. Laboratory studies were obtained. Patient's white count is elevated 8000. I discussed case with the hospitalist service. Dr. Raza will admit the patient. Differential Diagnosis: Differential includes but is not limited to colitis, C diff, electrolyte abnormality, sugar abnormality, dehydration, bacteremia, sepsis, UTI - Data Points Laboratory Results: Laboratory Results 01/19/18 14:45 01/19/18 01/19/18 14:45 14:45 WBC 8.01 10^3/uL 10^3/uL (3.80-9.50) RBC 4.02 10^6/uL L 10^6/uL (4.18-5.33) Hgb 12.5 g/dL L g/dL (12.6-16.3) Hct 38.4 % % (38.0-47.0) MCV 95.5 fL fL (81.5-99.8) MCH 31.1 pg pg (27.9-34.1) MCHC 32.6 g/dL g/dL (32.4-36.7) RDW 16.1 % H % (11.5-15.2) Plt Count 247 10^3/uL 10^3/uL (150-400) MPV 11.5 fL fL (8.7-11.7) Neut % (Auto) 71.3 % % (39.3-74.2) Lymph % (Auto) 15.7 % % (15.0-45.0) Pepin % (Auto) 10.9 % % (4.5-13.0) Eos % (Auto) 1.0 % % (0.6-7.6) Baso % (Auto) 0.2 % L % (0.3-1.7) Nucleat RBC Rel Count 0.0 % % (0.0-0.2) Absolute Neuts (auto) 5.71 10^3/uL 10^3/uL (1.70-6.50) Absolute Lymphs (auto) 1.26 10^3/uL 10^3/uL (1.00-3.00) Absolute Monos (auto) 0.87 10^3/uL H 10^3/uL (0.30-0.80) Absolute Eos (auto) 0.08 10^3/uL 10^3/uL (0.03-0.40) Absolute Basos (auto) 0.02 10^3/uL 10^3/uL (0.02-0.10) Absolute Nucleated RBC 0.00 10^3/uL 10^3/uL (0-0.01) Immature Gran % 0.9 % % (0.0-1.1) Immature Gran # 0.07 10^3/uL 10^3/uL (0.00-0.10) Sodium Pending Potassium Pending Chloride Pending Carbon Dioxide Pending Anion Gap Pending BUN Pending Creatinine Pending Estimated GFR Pending Glucose Pending Calcium Pending Total Bilirubin Pending Conjugated Bilirubin Pending Unconjugated Bilirubin Pending AST Pending ALT Pending Alkaline Phosphatase Pending Total Protein Pending Albumin Pending Lipase Pending Medications Given: Discontinued Medications Sodium Chloride (Ns) 500 mls @ 0 mls/hr IV EDNOW ONE; Wide Open PRN Reason: Protocol Stop: 01/19/18 14:22 Last Admin: 01/19/18 14:47 Dose: 500 mls Departure - Departure Disposition: [facility] Inpatient Acute Clinical Impression: Weakness, C. difficile colitis Condition: Good Referrals: Antolin Nagy MD [Primary Care Provider] - As per Instructions
[2018-01-19 15:01] LABS: PLATELET COUNT 247 10^3/uL (150-400)
[2018-01-19] MEDS ORDERED: ONDANSETRON DISINTEGRATING 4 MG TAB PO PRN (15:15)
[2018-01-19] MEDS ORDERED: PROMETHAZINE HCL 25 MG TAB PO PRN (15:15)
[2018-01-19] MEDS ORDERED: PROMETHAZINE HCL 25 MG/ML INJ IVP PRN (15:15)
[2018-01-19] MEDS ORDERED: ONDANSETRON 4 MG/2 ML VIAL IVP PRN (15:15)
[2018-01-19] MEDS ORDERED: ACETAMINOPHEN 325 MG TAB PO PRN (15:15)
[2018-01-19] MEDS: NS 1,000 ML IV SCH (16:00)
[2018-01-19] MEDS: VANCOMYCIN 125 MG/2.5 ML UDL PO SCH ×2 (16:41→21:24)
--- NOTE | 2018-01-19 16:42 | PDGENHP ---
History and Physical - Chief Complaint Acute fatigue - History of Present Illness Primary care provider: Dr. Antolin Nagy Primary decorating machine tender: Dr. Jackson Cisneros HPI: 82-year-old female presents with acutely worsening fatigue characterized as generalized with associated bowel frequency, onset of symptoms approximately 1 month ago and duration persistent and worsening thereafter. Approximately 1 month ago, the patient was having frequent, occasionally loose bowel movements, and she sought medical attention at [facility]. She was given a stool test for C diff, and instructed to only fill the cup if she was having watery stool. The patient was not having watery stool but she was having frequent bowel movement, and she did put formed stool in the cups and sent to the lab. The test came back positive for C diff, and she was initiated on metronidazole, which she took for 10 days. After 10 days, the patient's bowel movements continued to have a frequency anywhere between 4 and 5 per day, and she contacted her primary care provider for further discussion. She was adjusted to oral vancomycin 5 days ago, and has been very meticulous about taking the dosing as prescribed. Despite adjusting to this medication, she has continued to experience 4-5 bowel movements per day. On several occasions, she has utilized as needed Imodium, and this has temporarily alleviated the symptoms. On the day of this presentation, the patient reports that she has had this many formed stools and her fatigue is becoming so pervasive that she feels she needs a reassessment. She has not had a mechanical falls. Her bowel movements occasionally occur at night, but she has not had any fecal incontinence. She reports that the character of these frequent bowel movements is different than her previous diagnosis of microscopic colitis, which was specifically bowel urgency, but not bowel frequency. During this entire interval, the patient has not had any particular abdominal pain or vomiting. She denies any urinary symptoms. She reports that her appetite is good and she has been eating and drinking regularly. Of note, the patient reports that her last dosing of antibiotics was in September of 2017 while [facility] and she received antibiotics for a "norovirus outbreak". History Information - Allergies/Home Medication List Allergies/Adverse Reactions: codeine Allergy (Verified 01/19/18 13:12) constipation, impaction, nausea NSAIDS (Non-Steroidal Anti-Inflamma Allergy (Verified 01/19/18 13:12) kidney disfunction Opioids - Morphine Analogues Allergy (Verified 01/19/18 13:12) constipation, impactions, nausea tramadol Allergy (Verified 01/19/18 13:12) Rash Home Medications: Allopurinol [Allopurinol 300 MG (RX)] 300 mg PO DAILY@12 01/31/15 [Last Taken ] Budesonide [Entocort EC] 3 - 9 mg PO DAILY 01/31/15 [Last Taken 01/19/18] Cyanocobalamin [Vitamin B12 (*)] 1,000 mcg PO DAILY@12 01/31/15 [Last Taken ] Levothyroxine [Synthroid 88 mcg (*)] 88 mcg PO DAILY06 06/23/16 [Last Taken ] Lisinopril [Zestril 10 mg (*)] 10 mg PO DAILY 06/23/16 [Last Taken 01/19/18] Potassium Cl [Klor-Con 20 meq (*)] 20 meq PO DAILY@12 06/23/16 [Last Taken 01/19] C/E/Zn/Cu/OM3/DHA/EPA/LUT/ZEAX [Preservision Areds 2 Softgel] 1 each PO BID [Last Taken 01/19/18] Furosemide [Lasix 20 MG (*)] 20 mg PO DAILY 07/05/17 [Last Taken 01/19/18] Glucosamine Sulfate [Glucosamine Sulfate 500 MG (*)] 1,000 mg PO DAILY 07/05/17 [Last Taken 01/19/18] cycloSPORINE 0.05% [Restasis Opht Drops(*)] 1 drop EACHEYE HS 07/05/17 [Last Taken 01/18/18] Metoprolol Tartrate [Lopressor 50 mg (*)] 50 mg PO BID 08/21/17 [Last Taken 08:00] Cholecalciferol Vit D3 [Vitamin D3 (*)] 1,000 units PO DAILY 01/19/18 [Last Taken 01/19/18] Herbals/Supplements -Info Only 1 tab PO DAILY 01/19/18 [Last Taken 01/19/18] Multivitamins [Multivitamin (*)] 1 each PO DAILY 01/19/18 [Last Taken 01/19/18] Vancomycin [Vancomycin (*)] 125 mg PO Q6 01/19/18 [Last Taken 01/19/18 06:00] Warfarin Sodium [Coumadin 3MG (*)] 3 mg PO DAILY16 01/19/18 [Last Taken 01/18/18 ] I have personally reviewed and updated: family history, medical history, social history, surgical history - Past Medical History hypertension, pulmonary embolism (With subsequent pulmonary hypertension) Additional medical history: Chronic kidney disease stage 3 with history of gout. Reported microscopic colitis although patient reportedly did not have any evidence of colitis on most recent colonoscopy 3 years ago. Hypothyroidism. Hyperlipidemia - Surgical History Additional surgical history: L3-L5 laminectomy in August of 2017. Right hip surgery. Knee surgery. Hysterectomy. Multiple joint injections, most recently left knee - Family History Additional family history: Son-in-law with CMV and C diff following heart transplant, patient's most recent contact with him was - Social History Smoking Status: Never smoked Alcohol Use: None Drug Use: None Additional social history: Lives in her own home, has had to revert back to using walker over the past several weeks secondary to worsening weakness Review of Systems Review of Systems: ROS: 10pt was reviewed & negative except for what was stated in HPI & below Constitutional: Reports: weakness Gastrointestinal: Reports: other (Frequent stool) Physical Exam Physical Exam: Temp Pulse Resp BP Pulse Ox 36.6 C 66 16 185/101 H 94 01/19/18 15:45 01/19/18 15:45 01/19/18 15:45 01/19/18 15:45 01/19/18 15:45 Constitutional: no apparent distress, appears nourished, not in pain, No uncomfortable Eyes: PERRL, anicteric sclera, EOMI Ears, Nose, Mouth, Throat: moist mucous membranes, hearing normal, ears appear normal, no oral mucosal ulcers Cardiovascular: regular rate and rhythym, no murmur, rub, or gallop, No edema Respiratory: no respiratory distress, no rales or rhonchi, clear to auscultation Gastrointestinal: normoactive bowel sounds, soft, non-tender abdomen, no palpable masses, No guarding, No distension Skin: warm, No abrasion, No rash Musculoskeletal: other (Postsurgical left knee) Neurologic: AAOx3, sensation intact bilaterally, No weakness Psychiatric: interacting appropriately, not anxious, not encephalopathic, thought process linear Lab Data & Imaging Review 01/19/18 14:45 01/19/18 14:45 WBC 8.01 10^3/uL (3.80-9.50) 01/19/18 14:45 RBC 4.02 10^6/uL (4.18-5.33) L 01/19/18 14:45 Hgb 12.5 g/dL (12.6-16.3) L 01/19/18 14:45 Hct 38.4 % (38.0-47.0) 01/19/18 14:45 MCV 95.5 fL (81.5-99.8) 01/19/18 14:45 MCH 31.1 pg (27.9-34.1) 01/19/18 14:45 MCHC 32.6 g/dL (32.4-36.7) 01/19/18 14:45 RDW 16.1 % (11.5-15.2) H 01/19/18 14:45 Plt Count 247 10^3/uL (150-400) 01/19/18 14:45 MPV 11.5 fL (8.7-11.7) 01/19/18 14:45 Neut % (Auto) 71.3 % (39.3-74.2) 01/19/18 14:45 Lymph % (Auto) 15.7 % (15.0-45.0) 01/19/18 14:45 [place] % (Auto) 10.9 % (4.5-13.0) 01/19/18 14:45 Eos % (Auto) 1.0 % (0.6-7.6) 01/19/18 14:45 Baso % (Auto) 0.2 % (0.3-1.7) L 01/19/18 14:45 Nucleat RBC Rel Count 0.0 % (0.0-0.2) 01/19/18 14:45 Absolute Neuts (auto) 5.71 10^3/uL (1.70-6.50) 01/19/18 14:45 Absolute Lymphs (auto) 1.26 10^3/uL (1.00-3.00) 01/19/18 14:45 Absolute Monos (auto) 0.87 10^3/uL (0.30-0.80) H 01/19/18 14:45 Absolute Eos (auto) 0.08 10^3/uL (0.03-0.40) 01/19/18 14:45 Absolute Basos (auto) 0.02 10^3/uL (0.02-0.10) 01/19/18 14:45 Absolute Nucleated RBC 0.00 10^3/uL (0-0.01) 01/19/18 14:45 Immature Gran % 0.9 % (0.0-1.1) 01/19/18 14:45 Immature Gran # 0.07 10^3/uL (0.00-0.10) 01/19/18 14:45 Sodium 138 mEq/L (135-145) 01/19/18 14:45 Potassium 4.6 mEq/L (3.3-5.0) 01/19/18 14:45 Chloride 110 mEq/L (97-110) 01/19/18 14:45 Carbon Dioxide 25 mEq/l (22-31) 01/19/18 14:45 Anion Gap 3 mEq/L (8-16) L 01/19/18 14:45 BUN 34 mg/dL (7-23) H 01/19/18 14:45 Creatinine 1.0 mg/dL (0.6-1.0) 01/19/18 14:45 Estimated GFR 53 01/19/18 14:45 Glucose 95 mg/dL (70-100) 01/19/18 14:45 Calcium 9.8 mg/dL (8.5-10.4) 01/19/18 14:45 Total Bilirubin 0.6 mg/dL (0.1-1.4) 01/19/18 14:45 Conjugated Bilirubin 0.2 mg/dL (0.0-0.5) 01/19/18 14:45 Unconjugated Bilirubin 0.4 mg/dL (0.0-1.1) 01/19/18 14:45 AST 43 IU/L (14-46) 01/19/18 14:45 ALT 46 IU/L (9-52) 01/19/18 14:45 Alkaline Phosphatase 79 IU/L (38-126) 01/19/18 14:45 Total Protein 6.6 g/dL (6.3-8.2) 01/19/18 14:45 Albumin 4.1 g/dL (3.5-5.0) 01/19/18 14:45 Lipase 466 IU/L (23-300) H 01/19/18 14:45 Assessment & Plan Assessment: 82-year-old female presents with frequent bowel movements and generalized fatigue Plan: 1. Frequent bowel movements. Acute, new problem this provider, further workup indicated. Although these have recently been attributed to C diff colitis, the patient has been on appropriate treatment for the past 2 weeks and has not noted appreciable benefit. That being said, her symptoms include bowel frequency but not particular diarrhea, as the consistency is not consistently described as watery or profuse. -will get Infectious Disease consultation as I am not entirely convinced that this is secondary to C diff, and her initial stool sample was formed stool, possibly a false positive -will also get Gastroenterology consultation, as it may be more prudent to perform colonoscopy evaluate whether the patient has a recurrence in evolution of microscopic colitis, albeit she is having different symptoms than her previous characterization of microscopic colitis -in the interim, will continue oral vancomycin and supportive care with IV fluids -avoid Imodium until the above has been further clarify 2. Dehydration. Elevated BUN, patient feeling generally fatigued, most likely secondary to frequent bowel movements which are unable to keep up with oral intake -IV fluids, continue to monitor serum electrolytes 3. Chronic kidney disease stage 3. Creatinine currently 1.0, monitor 4. Osteoarthritis. Reviewed outside records including most recent laminectomy by Dr. Ayush Comer from 09/04/2017, recounting most recent surgery to L3-L5 -patient reports that she is completely weaned off of opiates, currently only on extra-strength Tylenol, pain medications are clearly not contributing to above 5. Hypertension. Continue home medications once reconciled Code. Full per patient, her children are joint MD POA Diet. Regular with IV fluids Prophylaxis. Moderate risk patient, hold pharmacologic in case patient requires colonoscopy procedure, SCDs Disposition. Anticipated discharge is 01/20, pending further workup as outlined above. I have discussed patient's presentation with Dr. Nancy Costa, we both agree the patient requires urgent evaluation as outlined above.
[2018-01-19] MEDS: WARFARIN SODIUM 3 MG TAB PO SCH (17:34)
[2018-01-19] MEDS: cycloSPORINE 0.05% 30 DROPERETTE/BOX EACHEYE SCH (21:00)
[2018-01-19] MEDS: PRESERVISION AREDS2 FORMULA EYE VIT 1 EACH PO SCH (21:24)
[2018-01-19] MEDS: METOPROLOL TARTRATE 50 MG TAB PO SCH (21:25)
[2018-01-20 05:41] LABS: INR 1.48 (0.83-1.16); PROTIME(PATIENT) 18.1 SEC (12.0-15.0)
[2018-01-20] MEDS: VANCOMYCIN 125 MG/2.5 ML UDL PO SCH ×4 (05:51→20:24)
[2018-01-20] MEDS: LEVOTHYROXINE 88 MCG TAB PO SCH (05:51)
[2018-01-20] MEDS ORDERED: HERBALS PO SCH (09:00)
[2018-01-20] MEDS ORDERED: [UNRECOGNIZED DRUG - OTHER] PO SCH (09:00)
[2018-01-20] MEDS ORDERED: ENOXAPARIN 40 MG/0.4 ML SYR SC SCH (09:00)
[2018-01-20] MEDS ORDERED: hydrALAZINE 20 MG/ML VIAL IVP PRN ×2 (09:08→17:43)
[2018-01-20] MEDS: METOPROLOL TARTRATE 50 MG TAB PO SCH ×2 (09:08→20:25)
[2018-01-20] MEDS: BUDESONIDE 3 MG EC CAP PO SCH (09:09)
[2018-01-20] MEDS: PRESERVISION AREDS2 FORMULA EYE VIT 1 EACH PO SCH ×2 (09:09→20:24)
[2018-01-20] MEDS: CHOLECALCIFEROL VIT D3 1,000 UNITS TAB PO SCH (09:09)
[2018-01-20] MEDS: MULTIVITAMINS 1 EACH TAB PO SCH (09:09)
[2018-01-20] MEDS: NS 1,000 ML IV SCH (09:11)
--- NOTE | 2018-01-20 09:16 | ASMTCMCOM ---
CM Note CM Note Notes: 82yr old female admitted for weakness, loose stools, c-diff. She had been tx as an out-pt but continued to have symptoms. Patient has a Hx of low back pain, pulm emboli, HTN, CKD-stage 3, gout, hypothyroid, HLD. Patient to have a colonoscopy and ID and Gastroenterology have been consulted. Patient lives alone and has 2 daughters in the area. Therapies to eval for discharge needs. CM to follow. Date Signed: 01/20/2018 09:16 AM Electronically Signed By:Candelaria Rodriguez LCSW
[2018-01-20] MEDS: GLUCOSAMINE SULF 500 MG CAP PO SCH (09:22)
--- NOTE | 2018-01-20 11:20 | GCON ---
[f rep st] CONSULTATION DATE OF CONSULTATION: 01/20/2018 CHIEF COMPLAINT: Recent diarrhea, nausea and weakness. REASON FOR CONSULTATION: I am asked to see this patient in consultation by Dr. Raza for chief comp laint of diarrhea, possible C diff. HISTORY OF PRESENT ILLNESS: Patient is an 82-year-old who presents to the hospital for evaluation of progressive weakness and dizziness. Over the past 2 weeks she has been treated for a presumed C dif f. She states that she was having frequent stools, but did not have any lori diarrhea, but did do a C diff test that was positive. She was placed on Flagyl she states for 10 days without improvement and then was placed on vancomycin for the past 2 days and now having continued symptoms. However, fo r her, her issues are weakness and fatigue with dizziness. She is not having any diarrhea, although she is having frequent stools, she says perhaps 4-5 a day. They are formed. There are no liquid sto ols. No watery stools. No blood in her stools. She does have some abdominal discomfort, but she st ates that this is chronic for her. She does hold the diagnosis of microscopic colitis in the past, a lthough her last colonoscopy in 2014 did not show any evidence of microscopic colitis. However, at t hat time, she did have small bowel biopsies that showed some villous blunting. She does not recall h aving a diagnosis of celiac sprue and is not on a gluten free diet. Otherwise, no fevers or chills. No blood in her stools. She does have a personal history of polyps. She is due for her next colono scopy in the next few years. She is followed by Dr. Cisneros. ALLERGIES: Codeine, NSAIDs, opioids, and tramadol. MEDICATIONS: Home medications are multivitamins, Coumadin, vancomycin, lisinopril, Lasix, budesonide , allopurinol. PAST MEDICAL HISTORY: Notable for hypertension, pulmonary embolism, on chronic Coumadin, chronic nadeem al disease, gout, and history of microscopic colitis, although not confirmed on last colonoscopy in 2 015. SOCIAL HISTORY: Patient has never smoked. Does not drink alcohol. FAMILY HISTORY: There is a son-in-law with recent C diff. REVIEW OF SYSTEMS: I performed a complete review of systems which is negative except for the pertine nt positives and negatives noted above in the HPI. PHYSICAL EXAM: VITAL SIGNS: Afebrile at 36.7, BP 162/85, pulse 59. GENERAL: She is alert, without apparent distress. EYES: No scleral icterus. OROPHARYNX: No oral lesions. CARDIOVASCULAR: Regu lar rhythm. CHEST: Clear to auscultation. ABDOMEN: Positive bowel sounds. Soft and nontender. N EUROLOGIC: Grossly nonfocal. SKIN: No lesions. LABORATORY DATA: Normal chemistries. Pro-time is elevated at 18 with an INR of 1.45. Hematocrit no rmal at 38 with normal white count 8. LFTs are normal. ASSESSMENT: 1. Reports of diarrhea, although in talking to the patient today, she does not actually have diarrhe a at this time, although having some frequent stools. It seems to me that if she has Clostridium dif ficile, it is likely responding to therapy. 2. Patient complains of weakness, dizziness, fatigue. May be multifactorial. From a GI standpoint, she did not have evidence of microscopic colitis on her last colonoscopy, but biopsies of small caron l did show some villous blunting and I would wonder if she may have celiac sprue and this could accou nt for some of her systemic symptoms. Overall, patient would be high risk for colonoscopy at this ti me given her age and Coumadin use and I think it would be best to avoid invasive procedures unless ne cessary. Also, consider if some of her fatigue and weakness could be from hypoadrenal given that she is on chronic budesonide. However, this would overall give lower risk for adrenal suppression as co mpared to other steroids. PLAN: 1. Will await ID evaluation. 2. Will check celiac sprue serology. 3. Hold on colonoscopy or endoscopic evaluation at this time and have patient follow up with her [facility] research soil scientist for further followup. Thank you for this consult. /[id number]/MODL
[2018-01-20] MEDS: ALLOPURINOL 300 MG TAB PO SCH (13:11)
[2018-01-20] MEDS: CYANO/VITAMIN B12 1000 MCG TAB PO SCH (13:11)
[2018-01-20] MEDS: WARFARIN SODIUM 3 MG TAB PO SCH (17:06)
--- NOTE | 2018-01-20 17:37 | GCON ---
[f rep st] CONSULTATION INPATIENT INFECTIOUS DISEASE CONSULTATION REFERRING PHYSICIAN: Geoffrey Raza MD REASON FOR REFERRAL: Query C difficile. HISTORY OF PRESENT ILLNESS: Patient is an 82-year-old female who was admitted through the emergency room at [facility] on 01/19/2018. Patient complained of acutely worsening fatigue with associated increase in bowel frequency, although her bowel movements are not necessarily liquid. Abhijit yun relates that approximately a month ago, she developed a nonspecific abdominal pain that felt li ke it does when "you're really hungry." She states that in addition to this onset, she also had to h ave more frequent bowel movements, although these bowel movements were only occasionally loose and no t liquid. Patient sought initial medical attention at [facility] and a st ool test was sent, which reflected positive PCR for C difficile. This positive C difficile sample wa s on a formed stool. Patient was started on metronidazole, which she took for 10 days, with absolute ly no improvement in her symptoms. Patient then recontacted her primary care provider and was change d to oral vancomycin approximately 5 days ago. She has been taking this for 5 days; and, at the [facility] t 2 days felt that maybe there was some improvement, but all the symptoms returned on day 3. Patient has taken Imodium at times, and this has temporarily alleviated her symptoms. She is now currently averaging 4-5 bowel movements a day and has increased fatigue with this abdominal discomfort. Lauryn mares was admitted and continued on oral vancomycin and given supplemental IV fluids. We are consulted t o help decide on the correct diagnosis. PAST MEDICAL HISTORY: 1. Chronic kidney disease. 2. Gout. 3. Microscopic colitis. 4. Hypothyroidism. 5. Hyperlipidemia. PAST SURGICAL HISTORY: 1. Status post laminectomy, August 2017. 2. Status post right hip surgery. 3. Status post knee surgery. 4. Status post hysterectomy. 5. Status post multiple joint injections. ANTIBIOTICS: Oral vancomycin. ALLERGIES: Patient is allergic to codeine, nonsteroidal anti-inflammatories, morphine analogs, trama dol. SOCIAL HISTORY: Patient denies any tobacco or alcohol use. Also denies drug use. She lives [facility] and has been using a walker recently. FAMILY HISTORY: Reviewed but noncontributory. Patient does have a [id number] family member, who has had C difficile issues after heart transplant procedure. REVIEW OF SYSTEMS: Other than that detailed above in the History of Present Illness, comprehensive 1 0-system review is negative. PHYSICAL EXAMINATION: VITAL SIGNS: Temperature maximum is 36.7, temperature current is 36.7, heart rate is 70, respiratory rate is 16, blood pressure is 100/63. GENERAL: Patient is a well-formed, we ll-nourished, weak-appearing, elderly female in no acute distress. She is not toxic in appearance. She is alert and oriented x3. She has a pleasant demeanor. HEENT: Normocephalic for age. Atraumat ic. No scleral icterus. No oral lesion or drainage from the nares. Eyes: Lids and conjunctivae ar e within normal limits. Pupils are equal and round bilaterally. NECK: Supple. No meningismus. JESSICA NGS: Clear to auscultation bilaterally with good effort. HEART: Regular rate and rhythm. No signi ficant peripheral edema. ABDOMEN: Soft. Nontender to palpation. No masses. SKIN: Warm and dry t o the touch. No rash or lesion seen. MUSCULOSKELETAL: No muscle tenderness is noted. No joint laura e effusion or arthritis is seen. NEURO: Cranial nerves 2-12 seem to be intact. Peripheral sensatio n seems intact in extremities. LABORATORY DATA: Patient has a CBC dated 01/19/2018, shows white blood cell count of 8.01, hemoglobi n of 12.5, hematocrit of 38.4, and platelet count of 247. Differential is within normal limits. Ser um chemistries on 01/20/2018 show a sodium of 138, potassium 4.1, chloride 111, bicarb of 22. BUN of 26, creatinine of 0.8. Total bilirubin is 0.6, conjugated is 0.2, unconjugated bilirubin is 0.4. A ST is 43, ALT is 46, lipase is 466. Urinalysis on 01/19/2018 is all within normal limits. MICROBIOLOGIC DATA: No micro samples currently. ASSESSMENT: Increased frequency of stools, although not lori diarrhea. This in conjunction with a nonspecific abdominal discomfort. She does have a moderately increased lipase level. This may refle ct some pancreatic pathology and some low-grade chronic pancreatitis as opposed to C difficile. I th ink that the positive PCR for stool for C difficile nearly reflects colonization at low amounts and p robably does not reflect true C difficile colitis with associated symptomatology. This would explain why she is nonresponsive to treatment with both Flagyl and vancomycin. At this point, we will obtai n an abdominal ultrasound of the biliary tree and try to discern any pathology. If this is negative, perhaps a CT scan of her abdomen and pelvis is in order. In the meantime, she can continue the oral vancomycin, although I have strong suspicion that this is not being effective. PLAN: 1. Continue p.o. vancomycin for now. 2. Abdominal ultrasound. 3. Possible followup with abdominal CT scan, if this is indicated. 4. Follow her appearance and clinical course. /[id number]/MODL
--- NOTE | 2018-01-20 17:53 | HOSPPROG ---
Hospitalist Progress Note Assessment/Plan: The patient is a 82-year-old female with PMH pulmonary hypertension, heart murmur, CKD, microscopic colitis, PE who was admitted for generalized weakness, lightheadedness, and frequent bowel movements. Symptoms were attributed to dehydration. Patient had been recently treated for C diff as an outpatient, but has had solid stools. ASSESSMENT/PLAN: Generalized weakness and fatigue Lightheadedness C diff colonization Abdominal discomfort Microscopic colitis Mildly elevated lipase Pulmonary hypertension History of PE, on chronic anticoagulation with warfarin Valvular disease Hypertension Hypothyroid Hyperlipidemia History of spine surgery for lumbar stenosis Osteoarthritis CKD st 3 Dehydration, resolved -Pt appears to be euvolemic now. Stop fluids after 1.5L infused to avoid vol OL w/ her comorbidities. -Discussed case w/ GI and ID. Pt does not appear to have active C diff infection , rather colonization. -Check AM labs. Add TSH. -Abd US in AM to eval source of lipase elevation, per ID. -Celiac/AI tests, per GI. -PT/OT/ISU. -Request Echo/Cardiology records from [facility]. VTE prophylaxis: Warfarin, subtherapeutic. Code Status: Full code Status: Changing status inpatient for greater than 2 midnight stay, since patient has persistent generalized weakness and is unsafe to discharge to home. She requires further workup for generalized weakness. Disposition: Med surg This patient is new to me. Reviewed patient's chart/records for this visit. ____ SUBJECTIVE: Today the patient continues to feel weak. She denies any watery diarrhea. She has had formed bowel movements. She has been able to get up to walk, but is very weak. Denies abd pain, but stomach feels like she is very hungry. OBJECTIVE: Physical Exam: General: The patient is an elderly female who is alert and in no acute distress. HEENT: normocephalic, extraocular movements intact, conjunctivae clear. Mucous membranes moist. Neck: trachea midline, no visible masses. CV: +S1/S2, RRR. Harsh grade 3 systolic murmur at all listening posts with radiation to carotids and axilla. Resp: unlabored, CTAB no RRW. Abd: soft and nondistended. Bowel sounds present. Non tender throughout. Musculoskeletal: Normal muscle tone/bulk. Neuro: cranial nerves II XII grossly intact. Intact gross motor and sensory function. Psych: Appropriate mood and appropriate affect. Skin: No pallor. No petechiae. Heme/lymph: No peripheral edema at bilateral lower extremities. Labs/Imaging/Other Tests: Personally reviewed/interpreted. Objective: Vital Signs Temp Pulse Resp BP Pulse Ox 36.9 C 65 16 99/67 L 95 01/20/18 16:00 01/20/18 16:00 01/20/18 16:00 01/20/18 16:00 01/20/18 16:00 Laboratory Results 01/20/18 04:10 01/19/18 01/20/18 01/21/18 05:59 05:59 05:59 Intake Total 550 400 Output Total 2350 Balance -1800 400 PT 18.1 SEC (12.0-15.0) H 01/20/18 04:10 INR 1.48 (0.83-1.16) H 01/20/18 04:10 ICD10 Worksheet Patient Problems: Problems Problem Status Onset C. difficile colitis Acute Weakness Acute Intractable low back pain Acute Polypharmacy Acute Pulmonary embolism Acute Radicular low back pain Acute
[2018-01-20] MEDS ORDERED: WARFARIN SODIUM 2 MG TAB PO ONE (18:24)
[2018-01-20] MEDS: cycloSPORINE 0.05% 30 DROPERETTE/BOX EACHEYE SCH (20:24)
[2018-01-21] MEDS: NS 1,000 ML IV SCH (00:43)
[2018-01-21 05:21] LABS: INR 1.37 (0.83-1.16)
[2018-01-21] MEDS: LEVOTHYROXINE 88 MCG TAB PO SCH (06:05)
[2018-01-21] MEDS: VANCOMYCIN 125 MG/2.5 ML UDL PO SCH ×2 (06:05→12:35)
[2018-01-21] MEDS: CHOLECALCIFEROL VIT D3 1,000 UNITS TAB PO SCH (07:43)
[2018-01-21] MEDS: MULTIVITAMINS 1 EACH TAB PO SCH (07:44)
[2018-01-21] MEDS: METOPROLOL TARTRATE 50 MG TAB PO SCH (07:52)
[2018-01-21] MEDS: BUDESONIDE 3 MG EC CAP PO SCH (07:52)
[2018-01-21] MEDS: GLUCOSAMINE SULF 500 MG CAP PO SCH (07:52)
[2018-01-21] MEDS: PRESERVISION AREDS2 FORMULA EYE VIT 1 EACH PO SCH (07:52)
[2018-01-21 07:57] VITALS: BP 177/108
--- NOTE | 2018-01-21 09:15 | PDMN ---
Medical Necessity Medical necessity: change to IP; los>2mn for ongoing weakness, fatigue, abd pain , and elevated lipase; requires further w/u with imaging, labs, and PT/OT; comorbid pulmonary htn, heart murmur, CKD, c diff colonization, hx PE, microscopic colitis; per order and progress note 01/20/18
[2018-01-21] MEDS: ALLOPURINOL 300 MG TAB PO SCH (12:35)
[2018-01-21] MEDS: CYANO/VITAMIN B12 1000 MCG TAB PO SCH (12:35)
[2018-01-21] MEDS: cycloSPORINE 0.05% 30 DROPERETTE/BOX EACHEYE SCH (12:35)
--- NOTE | 2018-01-21 13:30 | ASMTCMCOM ---
CM Note CM Note Notes: PT rec home, OT rec home/HHC. Spoke with pt who states she is safe going home without HHC, she has had HHC three times in the past and does not feel it necessary now. Pt has local support of dghtrs and pt son in coming in from [place] tomorrow, he may stay with her but pt says she also does not want to get him sick. Pt declines Meals on Wheels. Anticipate pt will d/c when medically stable. No CM d/c needs identified. CM available for changes/needs. Date Signed: 01/21/2018 01:29 PM Electronically Signed By:KATHI King
--- NOTE | 2018-01-21 20:44 | GDS ---
[f rep st] DISCHARGE SUMMARY ALL DIAGNOSES: 1. Generalized weakness. 2. Diarrhea. 3. Possible Clostridium difficile infection versus colonization. 4. History of microscopic colitis. 5. Pulmonary hypertension. 6. History of pulmonary embolism on chronic anticoagulation with mildly subtherapeutic INR on discha rge. 7. Valvular heart disease. 8. Hypertension. 9. Hypothyroid. 10. Hyperlipidemia. 11. Osteoarthritis. 12. Chronic kidney disease. 13. Dehydration. HOSPITAL COURSE: 82-year-old female who was admitted with diarrhea. She had been treated for C diff icile. She also had a history of microscopic colitis. She had been switched to oral vancomycin. Th is admission, she was seen by Infectious Disease, as well as GI. It is unclear whether her positive C difficile represents true infection or if this represents colonization. Regardless, her diarrhea h as improved. Because of this, I think she should complete a total of a 10 day course of oral vancomy loretta. I have given her these instructions. Notably, she had a right upper quadrant abdominal ultraso und, which was negative. Celiac panel has been sent by GI, which is pending at the time of discharge . She has a history of a PE 3 years ago in the setting of spinal surgery with subtherapeutic INR. INR on discharge is 1.37. Recommend that she slightly increase her dose of Coumadin to 4 mg daily. She had previously been taking alternating 4 and 5 mg, which had been decreased after having a suprathera peutic INR. That was in the setting of acute infection while on Flagyl, she may need that dose again . She will follow up again INR check 2 days after discharge. She will follow up with Dr. Nagy sh ortly thereafter. I do not think she needs bridging therapy since her PE was approximately 3 years a go. FOLLOWUP: 1. Dr. Nagy for management of her anticoagulation. 2. Dr. Cisneros for followup on her microscopic colitis. STUDIES PENDING AT TIME OF DISCHARGE: Celiac panel. BILLING: I spent more than 30 minutes on the day of discharge coordinating care. /[id number]/MODL
== END 2018-01-21 15:28 | disposition home or self-care (01) | DRG 392 ==
LOC: F3N 15:42 → OBSVTOIN 01-20 17:32
PROVIDERS: ADMIT Internal Medicine; ATTEND Internal Medicine
DX: R19.7 Diarrhea, unspecified (principal); R10.9 Unspecified abdominal pain; R53.1 Weakness; R53.83 Other fatigue; Z86.19 Personal history of other infectious and parasitic diseases; I12.9 Hypertensive chronic kidney disease with stage 1 through stage 4 chronic kidney disease, or unspecified chronic kidney disease; N18.9 Chronic kidney disease, unspecified; E03.9 Hypothyroidism, unspecified; M10.9 Gout, unspecified; E78.5 Hyperlipidemia, unspecified; Z86.711 Personal history of pulmonary embolism; Z79.01 Long term (current) use of anticoagulants; Z96.649 Presence of unspecified artificial hip joint
CPT/HCPCS: 82784-90; 83516-90; 97116-GP; 97161-GP; 97165-GO; 97530-GO; 97530-GP; 97535-GO; G0378; G8978-GP-CJ; G8979-GP-CI; G8980-GP-CI; G8987-GO-CK; G8988-GO-CH; J0360

== ENCOUNTER 2018-02-25 | Emergency (ER) | payer OTHER, MEDICARE | END 2018-02-25 21:53 | disposition home or self-care (01) ==

== ENCOUNTER → 2018-06-19 | Outpatient (CLI) | payer OTHER, MEDICARE | LOC: BMCIMAGING 10:36 | PROVIDERS: ATTEND Physician Assistant | DX: Z09 Encounter for follow-up examination after completed treatment for conditions other than malignant neoplasm (principal); Z98.1 Arthrodesis status; M43.16 Spondylolisthesis, lumbar region; M16.12 Unilateral primary osteoarthritis, left hip ==

== ENCOUNTER → 2018-06-24 | Outpatient (CLI) | payer OTHER, MEDICARE | LOC: FIMAGING 18:08 | PROVIDERS: ATTEND Neurological Surgery | DX: Z98.1 Arthrodesis status (principal); M43.16 Spondylolisthesis, lumbar region; M51.36 Other intervertebral disc degeneration, lumbar region ==

== ENCOUNTER 2018-08-13 12:11 | Emergency (ER) | payer OTHER, MEDICARE ==
--- NOTE | 2018-08-13 13:13 | EDPHY ---
General Time Seen by Provider: 08/13/18 12:25 Narrative: CLINICAL IMPRESSION: Left Pete cyst, joint swelling ASSESSMENT/PLAN: 83-year-old female presents to the emergency department with left knee pain x1 month. She has had bilateral knee replacements, is followed locally by Dr. Crawford, and was sent to the ED today by Neurosurgery for therapeutic arthrocentesis. Patient reports no trauma and has no overlying erythema, warmth, calf swelling, reproducible femur, hip or ankle pain. No clinical suggestion of septic joint, septic arthritis, overlying cellulitis, or underlying hardware infection. X- rays declined. I had a long discussion regarding risks benefits and indications for arthrocentesis, patient verbalized understanding to these and wishes to proceed. Unfortunately she had no fluid return. Ultrasound performed showing a large 4 x 5 x 1 cm pete cyst. No DVT. Patient has splints at home and declined repeat splinting today. I encouraged follow-up with her primary orthopedic surgeon who she has an appoint with on the . Warning signs return to ED sooner alignment discharge. DIFFERENTIAL DX: Differential includes but not limited to acute fracture, strain/sprain, joint dislocation, soft tissue contusion ED PROCEDURES: Patient refused as she has these at home Procedure: Arthrocentesis. After verbal informed consent was obtained explaining the risks including but not limited to infection and bleeding a arthrocentesis was performed on the left knee. The patient was prepped and draped in the usual sterile fashion. The joint was anesthetized with 1% lidocaine without epinephrine. Approximately 0 mL of fluid was obtained. There were no complications. The procedure was performed by myself. ED COURSE: 1:53 P.M.: Discussed with radiologist, patient has a large 4 x 5 x 1 Epte's cyst on the left knee. No evidence of DVT. CHIEF COMPLAINT: Left knee swelling HPI: 83-year-old female with history of bilateral knee replacements 26 years ago, presents to the emergency department with gradual onset left knee swelling and discomfort over the last month. She also has chronic back pain, was seen by her neurosurgeon today and recommended to come to the emergency department for her knee. Her daughter reports she had a bedside ultrasound today by her orthopedist and was told that she had fluid behind her knee. She has had many prior arthrocentesis ease for the left knee by her orthopedic surgeon, Dr. Thorpe. She does not have an appointment with him until the . She reports no trauma. No redness or warmth to the knee. No fever, chills, lower leg swelling, calf pain or history of DVT. PAST MEDICAL HISTORY: Prior knee replacements, chronic back pain Pertinent Past Surgical History: Prior knee replacements Social History: Here with her daughter REVIEW OF SYSTEMS: All other systems negative Constitutional: No fever, no chills Musculoskeletal: No deformity, + joint pain Skin: No rashes, color change or open wounds. Neurological: No sensory loss or weakness. PHYSICAL EXAM: General Appearance: Alert, oriented, appropriate for age, cooperative, NAD, well hydrated, non-toxic appearing, VSS, no hypoxia. Neurological: Alert and oriented x 3, normal sensation and strength of extremities Skin: Warm, dry, no rashes, no nodules on palpation. Musculoskeletal: Limited range of motion left knee secondary to swelling. No overlying erythema or warmth. No calf swelling, pain, erythema or warmth. No palpable pain along the entire left extremity. Distal neurovascular exam intact. MEDICAL DECISION MAKING: Patient was seen independently. Secondary supervising physician at time of evaluation was Dr. Landry. Diagnosis: Left knee Pete cyst, joint swelling. New, requires workup Summary: See assessment and plan for summary of ED visit Independent visualization of images, tracing, or specimens yes. Patient Progress: Improved. - Diagnostics Imaging Results: Imaging Impressions Extremity Venous Study 08/13/18 13:10 Impression: 1. Left Pete's cyst. 2. No deep venous thrombosis left leg. Findings and recommendations discussed with Emergency Department physician, Buck Smith PAC at 13:52 hour, 08/13/2018. Final report concurs with initial preliminary interpretation. - History Smoking Status: Never smoked - Objective Vital Signs: Initial Vital Signs Heart Rate 70 08/13/18 12:16 Respiratory Rate 18 08/13/18 12:16 Blood Pressure 178/95 H 08/13/18 12:16 O2 Sat (%) 96 08/13/18 12:16 O2 Delivery Mode Room Air Allergies/Adverse Reactions: codeine Allergy (Verified 08/13/18 12:16) constipation, impaction, nausea NSAIDS (Non-Steroidal Anti-Inflamma Allergy (Verified 08/13/18 12:16) kidney disfunction Opioids - Morphine Analogues Allergy (Verified 08/13/18 12:16) constipation, impactions, nausea tramadol Allergy (Verified 08/13/18 12:16) Rash Home Medications: Medication Instructions Recorded Allopurinol [Allopurinol 300 MG 300 mg PO DAILY@12 01/31/15 (RX)] Budesonide [Entocort EC] 3 - 9 mg PO DAILY 01/31/15 Cyanocobalamin [Vitamin B12 (*)] 1,000 mcg PO DAILY@12 01/31/15 Levothyroxine [Synthroid 88 mcg 88 mcg PO DAILY06 06/23/16 (*)] Lisinopril [Zestril 10 mg (*)] 10 mg PO DAILY 06/23/16 C/E/Zn/Cu/OM3/DHA/EPA/LUT/ZEAX 1 each PO BID 07/05/17 [Preservision Areds 2 Softgel] Glucosamine Sulfate [Glucosamine 1,000 mg PO DAILY 07/05/17 Sulfate 500 MG (*)] cycloSPORINE 0.05% [Restasis Opht 1 drop EACHEYE HS 07/05/17 Drops(*)] Metoprolol Tartrate [Lopressor 50 50 mg PO BID 08/21/17 mg (*)] Cholecalciferol Vit D3 [Vitamin D3 1,000 units PO DAILY 01/19/18 (*)] Herbals/Supplements -Info Only 1 tab PO DAILY 01/19/18 Multivitamins [Multivitamin (*)] 1 each PO DAILY 01/19/18 Vancomycin [Vancomycin (*)] 125 mg PO Q6 01/19/18 Warfarin Sodium [Coumadin] 4 mg PO DAILY@1700 #30 tablet 01/21/18 Vancomycin [Vancomycin (*)] 125 mg PO Q6 #28 cap 02/25/18 Departure - Departure Disposition: Home, Routine, Self-Care Clinical Impression: Pete's cyst of knee Qualifiers: Laterality: left Qualified Code(s): M71.22 - Synovial cyst of popliteal space [ Pete], left knee Condition: Good Instructions: Bakers Cyst (ED) Additional Instructions: DISCHARGE INSTRUCTIONS FROM YOUR DOCTOR Thank you for visiting our emergency department today. Please keep in mind that discharge from the emergency department does not mean that there is nothing wrong - it simply means that we have not identified an emergency condition that requires further evaluation or treatment in the hospital. You should always plan to follow up with primary care for re-evaluation of your condition in the next 2-3 days. If you have been referred to a specialist, please call as soon as possible (today or tomorrow) to schedule your follow up appointment at the appropriate time. ASPIRATION OF HER KNEE JOINT DID NOT RESULT IN ANY FLUID COLLECTION. AN ULTRASOUND OF THE LEG SHOWED A 4 X 5 X 1 CM LEFT PETE CYST. PLEASE ADDRESS THIS WITH HER PRIMARY ORTHOPEDIC PROVIDER. YOU MAY CHOOSE TO USE AN ELASTIC KNEE BRACE FOR COMPRESSION AND PAIN RELIEF. ELEVATE THE LEG WHEN POSSIBLE. RETURN TO THE EMERGENCY DEPARTMENT FOR INCREASED PAIN, WORSENING SWELLING, INABILITY TO WALK, REDNESS, WARMTH, FEVER, CHILLS, VOMITING OR ANY OTHER CONCERNS FOR INFECTION. People present with illnesses and injuries in different ways, and it is always possible that we have missed something. You may always return for re-evaluation if symptoms worsen or if they are not improving or if you develop new/different symptoms. Again, thank you for choosing our emergency department. We hope that you feel better. Referrals: Antolin Nagy MD [Primary Care Provider] - As per Instructions Jacinto Altamirano MD [Medical Doctor] - 2-3 days, call for appt.
[2018-08-13 14:15] VITALS: BP 175/96
== END 2018-08-13 14:14 | disposition home or self-care (01) ==
PROC: 0S9D3ZZ Drainage of Left Knee Joint, Percutaneous Approach (ICD-10-PCS; principal; 2018-08-13)
DX: M71.22 Synovial cyst of popliteal space [Baker], left knee (principal)

== ENCOUNTER → 2018-08-22 | Outpatient (CLI) | payer OTHER, MEDICARE | LOC: FIMAGING 13:14 | PROVIDERS: ATTEND Orthopaedic Surgery | DX: T84.84XD Pain due to internal orthopedic prosthetic devices, implants and grafts, subsequent encounter (principal); Z96.652 Presence of left artificial knee joint; M25.462 Effusion, left knee ==

== ENCOUNTER 2018-10-03 14:30 | Emergency (ER) | payer OTHER, MEDICARE ==
--- NOTE | 2018-10-03 14:33 | EDPHY ---
H & P Time Seen by Provider: 10/03/18 14:32 - Personal History Tetanus Vaccine Date: < 10 years - Medical/Surgical History Hx Asthma: No Hx Chronic Respiratory Disease: No Hx Diabetes: No Hx Cardiac Disease: Yes Hx Renal Disease: Yes Hx Cirrhosis: No Hx Alcoholism: No Hx HIV/AIDS: No Hx Splenectomy or Spleen Trauma: No Other PMH: pulmonary HTN/back problems-disectomy 02/01/15/bilat knee surgery/ renal issues/HTN/hysterectomy/carpal tunnel/ PE, c diff,. total hip R Apr 2017 - Social History Smoking Status: Never smoked Constitutional: Initial Vital Signs Temperature (C) 37 C 10/03/18 14:48 Heart Rate 65 10/03/18 14:48 Respiratory Rate 16 10/03/18 14:48 Blood Pressure 171/85 H 10/03/18 14:48 O2 Sat (%) 99 10/03/18 14:48 O2 Delivery Mode Nasal Cannula O2 (L/minute) 4 Allergies/Adverse Reactions: codeine Allergy (Verified 08/13/18 12:16) constipation, impaction, nausea NSAIDS (Non-Steroidal Anti-Inflamma Allergy (Verified 08/13/18 12:16) kidney disfunction Opioids - Morphine Analogues Allergy (Verified 08/13/18 12:16) constipation, impactions, nausea tramadol Allergy (Verified 08/13/18 12:16) Rash Home Medications: Medication Instructions Recorded Allopurinol [Allopurinol 300 MG 300 mg PO DAILY@12 01/31/15 (RX)] Budesonide [Entocort EC] 3 - 9 mg PO DAILY 01/31/15 Cyanocobalamin [Vitamin B12 (*)] 1,000 mcg PO DAILY@01/31/15 Levothyroxine [Synthroid 88 mcg 88 mcg PO DAILY06 06/23/16 (*)] Lisinopril [Zestril 10 mg (*)] 10 mg PO DAILY 06/23/16 C/E/Zn/Cu/OM3/DHA/EPA/LUT/ZEAX 1 each PO BID 07/05/17 [Preservision Areds 2 Softgel] Glucosamine Sulfate [Glucosamine 1,000 mg PO DAILY 07/05/17 Sulfate 500 MG (*)] cycloSPORINE 0.05% [Restasis Opht 1 drop EACHEYE HS 12/28/17 Drops(*)] Metoprolol Tartrate [Lopressor 50 50 mg PO BID 08/21/17 mg (*)] Cholecalciferol Vit D3 [Vitamin D3 1,000 units PO DAILY 01/19/18 (*)] Herbals/Supplements -Info Only 1 tab PO DAILY 01/19/18 Multivitamins [Multivitamin (*)] 1 each PO DAILY 01/19/18 Vancomycin [Vancomycin (*)] 125 mg PO Q6 01/19/18 Warfarin Sodium [Coumadin] 4 mg PO DAILY@1700 #30 tablet 01/21/18 Vancomycin [Vancomycin (*)] 125 mg PO Q6 #28 cap 02/25/18 Medical Decision Making - Diagnostics Imaging Results: Imaging Impressions Chest/Thorax CTA 10/03/18 14:38 Impression: 1. Findings compatible with left upper lobe pneumonia (possibly viral in nature ) with small left pleural effusion. 2. No evidence for acute pulmonary embolism. Antony Leanne was notified of these findings by telephone at 4:38 PM on 10/03/2018 Imaging: Discussed imaging studies w/ crew caller Radiologist, I viewed and interpreted images myself ED Course/Re-evaluation: CHIEF COMPLAINT: Elevated D-dimer HISTORY OF PRESENT ILLNESS: 83-year-old female who lives at [facility]. She has some memory issues and is not a great historian. Apparently [facility] ordered a D-dimer test and slightly elevated. This patient has a history of pulmonary emboli 5 years ago so they sent her to the emergency department to get further evaluation. It is not exactly clear what prompted the ordering of the D-dimer test but I believe the patient is trying to describe the fact that she has become more hypoxemic over the last several days. She tested positive for influenza and they have been adding oxygen during the day as opposed to just at night like usual. I believe this is what prompted the ordering of the test but I have no clear ID and the patient does not either. The patient denies any symptoms besides some mild shortness of breath which is better with oxygen and coughing. She no longer endorses any fevers or chills. REVIEW OF SYSTEMS: A comprehensive 10 system review of systems is otherwise negative aside from elements mentioned in the history of present illness and medical decision making. PHYSICAL EXAM: HR, BP, O2 Sat, RR. Temp noted General Appearance: Alert, well hydrated, appropriate, and non-toxic appearing. Head: Atraumatic without scalp tenderness or obvious injury Eyes: Pupils equal, round, reactive to light and accommodation, EOMI, no trauma , no injection. Ears: Clear bilaterally, no perforation, normal landmarks Nose: Atraumatic, no rhinorrhea, clear. Throat: There is no erythema or exudates, no lesions, normal tonsils, mucus membranes moist. Neck: Supple, 2+ carotid upstroke, nontender, no lymphadenopathy. Respiratory: No retractions, no distress, coarse rhonchi in all lung paulino with expiratory wheezes Cardiovascular: Regular rate and rhythm, no murmurs, rubs, or gallops. Bilateral carotid, radial, dorsalis pedis, and posterior tibial pulses intact. Good capillary refill all extremities. Gastrointestinal: Abdomen is soft, nontender, non-distended, no masses, no rebound, no guarding, no peritoneal signs. Musculoskeletal: Normal active ROM of all extremities, atraumatic. Neurological: Alert, appropriate, and interactive. The patient has normal DTRs and non-focal cranial nerves, motor, sensory, and cerebellar exam. Skin: No rashes, good turgor, no nodules on palpation. Past medical history: Hypoxemia secondary to underlying lung pathology Past surgical history: Noncontributory Family history: Noncontributory Social history: , retired, lives at [facility], does not use tobacco, does not use alcohol DIAGNOSTICS/PROCEDURES/CRITICAL CARE TIME: Study: CT angiography of the chest Indication: Elevated D-dimer with prior history of pulmonary emboli Results: CT scan of the chest was obtained. The results of the study reveal a left upper lobe pneumonitis that is viral in nature. I viewed the images myself on the PACS system. DIFFERENTIAL DIAGNOSIS: The differential diagnosis for the patient's shortness of breath and hypoxemia included but was not limited to pneumonia, myocardial infarction, acute mountain sickness, high altitude pulmonary edema, congestive heart failure, and pulmonary embolus. MEDICAL DECISION MAKING: This patient is most likely short of breath due to her positive influenza. However, [facility] physicians have ordered a D- dimer test which is slightly elevated and she does have a history of pulmonary emboli. She has a 99% saturation with supplemental oxygen. She is not in any distress. I will check her creatinine and then get in angiography of her chest. 1638: I spoke with Dr. Farbach, radiologist, who reports that the patient has left upper lobe pneumonitis that is viral in appearance. There is no sign of a PE. Patient is also influenza positive, which could have caused her elevated D- dimer. 1640: Reassessed patient and discussed laboratory and imaging findings. I have offered her admission as the patient states that [facility]. However, the patient has politely declined. Return precautions provided; patient is comfortable with this plan. - Data Points Laboratory Results: 10/03/18 14:55 POC Hgb 9.5 gm/dL L gm/dL (12.6-16.3) POC Hct 28 % L % (38-47) POC Sodium 131 mEq/L L mEq/L (135-145) POC Potassium 3.3 mEq/L mEq/L (3.3-5.0) POC Chloride 98 mEq/L mEq/L (97-110) POC Total CO2 26 mEq/L mEq/L (22-31) POC BUN 13 mg/dL mg/dL (7-23) POC Creatinine 0.9 mg/dL mg/dL (0.6-1.0) POC Glucose 111 mg/dL H mg/dL (70-100) Medications Given: Discontinued Medications Albuterol/Ipratropium (Duoneb) 3 ml IH EDNOW ONE Stop: 10/03/18 14:39 Last Admin: 10/03/18 14:55 Dose: 3 ml Sodium Chloride (Ns) 500 mls @ 1,000 mls/hr IV EDNOW ONE PRN Reason: Protocol Stop: 10/03/18 15:07 Last Admin: 10/03/18 14:54 Dose: 500 mls Point of Care Test Results: Chemistry 10/03/18 14:55 POC Sodium 131 mEq/L L mEq/L (135-145) POC Potassium 3.3 mEq/L mEq/L (3.3-5.0) POC Chloride 98 mEq/L mEq/L (97-110) POC Total CO2 26 mEq/L mEq/L (22-31) POC BUN 13 mg/dL mg/dL (7-23) POC Creatinine 0.9 mg/dL mg/dL (0.6-1.0) POC Glucose 111 mg/dL H mg/dL (70-100) ISTAT H&H 10/03/18 14:55 POC Hgb 9.5 gm/dL L gm/dL (12.6-16.3) POC Hct 28 % L % (38-47) Departure - Departure Disposition: Home, Routine, Self-Care Clinical Impression: Influenza, Pneumonitis Condition: Good Instructions: Pneumonitis (ED), Influenza (ED) Additional Instructions: 1. Use ibuprofen and Tylenol as needed for fever and body aches. 2. Follow up with your primary care physician within 72 hours for reevaluation. 3. Drink plenty of fluids. 4. Return to the emergency department immediately for high fever, severe headache or neck pain, difficulty breathing, abdominal pain, rash or other worsening of condition. Referrals: Francy Hancock MD [Medical Doctor] - As per Instructions
[2018-10-03] MEDS ORDERED: NS 500 ML IV ONE (14:38)
[2018-10-03] MEDS ORDERED: IPRATROPIUM/ALBUTEROL 3 ML DEYVIAL IH ONE (14:38)
[2018-10-03] MEDS ORDERED: IOPAMIDOL (ISOVUE-370) 150 ML BTL IV ONE (15:19)
[2018-10-03 17:14] VITALS: BP 146/81
== END 2018-10-03 17:08 | disposition home or self-care (01) ==
LOC: EDUNIT#
DX: J10.1 Influenza due to other identified influenza virus with other respiratory manifestations (principal); I27.20 Pulmonary hypertension, unspecified; E86.9 Volume depletion, unspecified
CPT/HCPCS: 71275; 96360; 99285; Q9967; 82435-PO; 82565-PO; 82947-PO; 84132-PO; 84295-PO; 84520-PO; 85014-ER

== ENCOUNTER 2018-11-16 12:03 | Inpatient (IN) | payer OTHER, MEDICARE ==
[2018-11-16] MEDS ORDERED: NS 1,000 ML IV ONE (12:22)
[2018-11-16 12:30] LABS: PLATELET COUNT 294 10^3/uL (150-400)
--- NOTE | 2018-11-16 12:50 | EDPHY ---
H & P Stated Complaint: diarrhea x 1 wk Source: Patient Exam Limitations: No limitations - Personal History Current Tetanus Diphtheria and Acellular Pertussis (TDAP): Unsure Tetanus Vaccine Date: < 10 years - Medical/Surgical History Hx Asthma: No Hx Chronic Respiratory Disease: No Hx Diabetes: No Hx Cardiac Disease: Yes Hx Renal Disease: Yes Hx Cirrhosis: No Hx Alcoholism: No Hx HIV/AIDS: No Hx Splenectomy or Spleen Trauma: No Other PMH: pulmonary HTN/back problems-disectomy 02/01/15/bilat knee surgery/ renal issues/HTN/hysterectomy/carpal tunnel/ PE, c diff,. total hip R Apr 2017 - Social History Smoking Status: Never smoked Time Seen by Provider: 11/16/18 12:22 HPI/ROS: CHIEF COMPLAINT: Loose stool now diarrhea increasing weakness HISTORY OF PRESENT ILLNESS: Patient presents to the ED with complaints of generalized weakness and difficulty ambulating. The patient has had a 1 day history of diarrhea and a one-week history of crampy abdominal pain, nausea and loose stool. The patient denies any recent antibiotic use. The patient had been hospitalized for a knee replacement earlier in the year. This was complicated by readmission for sepsis. The patient ultimately recovered from that had been in a [facility] for approximately a month and then was discharged home for a month. She is no longer receiving home care. The patient denies any acute pain, numbness, weakness or fever. She does feel globally weak and is having difficulty ambulating secondary to that. REVIEW OF SYSTEMS: A comprehensive 10 point review of systems is otherwise negative aside from elements mentioned in the history of present illness. (Nelson Bliss) - Physical Exam Exam: General Appearance: Thin female, no acute distress Eyes: Pupils equal and round no pallor or injection ENT, Mouth: Dry mucous membranes Respiratory: There are no retractions, lungs are clear to auscultation Cardiovascular: Regular rate and rhythm Gastrointestinal: Benign abdominal exam Neurological: 5/5 strength noted all 4 extremities Skin: Warm and dry, no rashes Musculoskeletal: Neck is supple nontender Extremities: symmetrical, full range of motion Psychiatric: Patient is oriented X 3, there is no agitation (Nelson Bliss) Constitutional: Initial Vital Signs Temperature (C) 36.7 C 11/16/18 12:18 Heart Rate 76 11/16/18 12:18 Respiratory Rate 18 11/16/18 12:18 Blood Pressure 123/74 H 11/16/18 12:18 O2 Sat (%) 95 11/16/18 12:18 O2 Delivery Mode Room Air Allergies/Adverse Reactions: codeine Allergy (Verified 11/16/18 12:24) constipation, impaction, nausea NSAIDS (Non-Steroidal Anti-Inflamma Allergy (Verified 11/16/18 12:24) kidney disfunction Opioids - Morphine Analogues Allergy (Verified 11/16/18 12:24) constipation, impactions, nausea tramadol Allergy (Verified 11/16/18 12:24) Rash Home Medications: Medication Instructions Recorded Allopurinol [Allopurinol 300 MG 300 mg PO DAILY@12 01/31/15 (RX)] Budesonide [Entocort EC] 9 mg PO DAILY 01/31/15 Cyanocobalamin [Vitamin B12 (*)] 1,000 mcg PO DAILY@12 01/31/15 C/E/Zn/Cu/OM3/DHA/EPA/LUT/ZEAX 1 each PO BID 07/05/17 [Preservision Areds 2 Softgel] Glucosamine Sulfate [Glucosamine 500 mg PO DAILY@1200 07/05/17 Sulfate 500 MG (*)] cycloSPORINE 0.05% [Restasis Opht 1 drop EACHEYE BID 07/05/17 Drops(*)] Metoprolol Tartrate [Lopressor 50 50 mg PO BID 08/21/17 mg (*)] Cholecalciferol Vit D3 [Vitamin D3 1,000 units PO DAILY@1200 01/19/18 (*)] Herbals/Supplements -Info Only 1 tab PO DAILY 01/19/18 Multivitamins [Multivitamin (*)] 1 each PO DAILY@1200 01/19/18 Acetaminophen [Tylenol ES 500 mg 1,000 mg PO TID 11/16/18 (*)] Furosemide [Lasix 40 MG (*)] 40 mg PO DAILY 11/16/18 Levothyroxine Sodium 100 mg PO DAILY@0600 11/16/18 [Levothyroxine Sodium] Lisinopril [Zestril 40 mg (*)] 40 mg PO DAILY 11/16/18 Surprise-3 Fatty Acids [Fish Oil 1000 1,000 mg PO DAILY@1200 11/16/18 mg (*)] Potassium Chloride [Klor-Con 10] 10 meq PO DAILY 11/16/18 Primidone [Mysoline] 100 mg PO BID 11/16/18 Medical Decision Making ED Course/Re-evaluation: The patient had an IV established. She received 2 L of normal saline. Screening laboratory studies are within normal limits. The patient does appear to be slightly dehydrated. The patient had 2 episodes of diarrhea today with a several day history of loose stool only. She has not been on recent antibiotics. She has been at home for the past month. (Nelson Bliss) I took over care of this patient at 2:00 p.m.. This patient is in the emergency department after having loose stools this week followed by 2 episodes of diarrhea. No recent antibiotics. Her vital signs were reviewed and are normal. She is afebrile. Blood work reviewed and is unremarkable. Francy of case management is currently evaluating the patient to see if she has the necessary family support to be discharged to home safely. If we are not able to arrange this support she will be admitted to the hospitalist service for dehydration. Please see Dr. Bliss note for further details. 3:00 p.m., informed that the patient's daughter has a recent hip fracture and will not be able to come to the emergency department to pick this patient up or properly take care of her. The patient is still complaining of weakness and does not feel comfortable being discharged to home. The patient will be admitted to the hospitalist service. 3:30 p.m., spoke with on-call hospitalist Dr. Atul Kim. Case discussed in detail with her. She accepts this patient for admission. The patient's remaining emergency department course under my care has been uneventful. The patient was admitted to the hospitalist service in stable condition. ( Marsha Valera) Differential Diagnosis: Differential diagnosis considered includes dehydration, metabolic abnormality, renal failure (Nelson Bliss) - Data Points Laboratory Results: Laboratory Results 11/16/18 11:04 11/16/18 11:04 11/16/18 11/16/18 11:04 11:04 WBC 6.11 10^3/uL 10^3/uL (3.80-9.50) RBC 3.84 10^6/uL L 10^6/uL (4.18-5.33) Hgb 12.0 g/dL L g/dL (12.6-16.3) Hct 36.2 % L % (38.0-47.0) MCV 94.3 fL fL (81.5-99.8) MCH 31.3 pg pg (27.9-34.1) MCHC 33.1 g/dL g/dL (32.4-36.7) RDW 17.0 % H % (11.5-15.2) Plt Count 294 10^3/uL 10^3/uL (150-400) MPV 11.4 fL fL (8.7-11.7) Neut % (Auto) 72.9 % % (39.3-74.2) Lymph % (Auto) 13.9 % L % (15.0-45.0) Wilbarger % (Auto) 10.0 % % (4.5-13.0) Eos % (Auto) 2.1 % % (0.6-7.6) Baso % (Auto) 0.8 % % (0.3-1.7) Nucleat RBC Rel Count 0.0 % % (0.0-0.2) Absolute Neuts (auto) 4.45 10^3/uL 10^3/uL (1.70-6.50) Absolute Lymphs (auto) 0.85 10^3/uL L 10^3/uL (1.00-3.00) Absolute Monos (auto) 0.61 10^3/uL 10^3/uL (0.30-0.80) Absolute Eos (auto) 0.13 10^3/uL 10^3/uL (0.03-0.40) Absolute Basos (auto) 0.05 10^3/uL 10^3/uL (0.02-0.10) Absolute Nucleated RBC 0.00 10^3/uL 10^3/uL (0-0.01) Immature Gran % 0.3 % % (0.0-1.1) Immature Gran # 0.02 10^3/uL 10^3/uL (0.00-0.10) Sodium 136 mEq/L mEq/L (135-145) Potassium 4.2 mEq/L mEq/L (3.5-5.2) Chloride 103 mEq/L mEq/L (97-110) Carbon Dioxide 21 mEq/l L mEq/l (22-31) Anion Gap 12 mEq/L mEq/L (6-14) BUN 31 mg/dL H mg/dL (7-23) Creatinine 1.0 mg/dL mg/dL (0.6-1.0) Estimated GFR 53 Glucose 111 mg/dL H mg/dL (70-100) Calcium 9.8 mg/dL mg/dL (8.5-10.4) Medications Given: Discontinued Medications Sodium Chloride (Ns) 1,000 mls @ 0 mls/hr IV EDNOW ONE; Wide Open PRN Reason: Protocol Stop: 11/16/18 12:23 Last Admin: 11/16/18 12:40 Dose: 1,000 mls Departure - Departure Disposition: [facility] Inpatient Acute Clinical Impression: Dehydration, Diarrhea
[2018-11-16] MEDS ORDERED: PROMETHAZINE HCL 25 MG/ML INJ IVP PRN (15:48)
[2018-11-16] MEDS ORDERED: oxyCODONE IR 5 MG TAB PO PRN (15:48)
[2018-11-16] MEDS ORDERED: ONDANSETRON DISINTEGRATING 4 MG TAB PO PRN (15:48)
[2018-11-16] MEDS ORDERED: HYDROCODONE/APAP 5/325 TAB PO PRN (15:48)
[2018-11-16] MEDS ORDERED: ONDANSETRON 4 MG/2 ML VIAL IVP PRN (15:48)
[2018-11-16] MEDS ORDERED: NS 1,000 ML IV SCH (16:00)
--- NOTE | 2018-11-16 17:11 | PDGENHP ---
History and Physical - Chief Complaint diarrhea/weakness - History of Present Illness 83 yo F with PMH that includes microscopic colitis, recurrent diarrhea/frequent loose BM as well as multiple stool tests positive for C diff presenting with 2 weeks of increased bowel movements again. She notes that she has BM after every time she eats, but also wakes in the night with BM and has been incontinent of stool frequently at night recently. She is followed by her PCP and Dr. Cisneros of GI for this, and states that in the past she was treated several times for c diff, but ultimately a colonoscopy with biopsy was performed during a time of + c diff testing and was completely negative for any signs of c diff and she was taken off of abx and told not to take those again for c diff. She was also previously diagnosed with celiac but states this too was more recently ruled out. She has had decreased appetite due in part to concerns of having more stools and some nausea but no vomiting. She notes that she was planning to go home from ER but when she got up to walk, she was much weaker than she expected , and given that her daughter recently broke her hip she does not have any help at home. She denies f/c, bloody stools, sob/chest pain or other associated sxs. History Information - Allergies/Home Medication List Allergies/Adverse Reactions: codeine Allergy (Verified 11/16/18 12:24) constipation, impaction, nausea NSAIDS (Non-Steroidal Anti-Inflamma Allergy (Verified 11/16/18 12:24) kidney disfunction Opioids - Morphine Analogues Allergy (Verified 11/16/18 12:24) constipation, impactions, nausea tramadol Allergy (Verified 11/16/18 12:24) Rash Home Medications: Allopurinol [Allopurinol 300 MG (RX)] 300 mg PO DAILY@01/31/15 [Last Taken ] Budesonide [Entocort EC] 9 mg PO DAILY 01/31/15 [Last Taken 11/16/18] Cyanocobalamin [Vitamin B12 (*)] 1,000 mcg PO DAILY@01/31/15 [Last Taken 04/26] C/E/Zn/Cu/OM3/DHA/EPA/LUT/ZEAX [Preservision Areds 2 Softgel] 1 each PO BID [Last Taken 11/15/18] Glucosamine Sulfate [Glucosamine Sulfate 500 MG (*)] 500 mg PO DAILY@1200 [Last Taken 11/15/18] cycloSPORINE 0.05% [Restasis Opht Drops(*)] 1 drop EACHEYE BID 07/05/17 [Last Taken 11/16/18 08:00] Metoprolol Tartrate [Lopressor 50 mg (*)] 50 mg PO BID 08/21/17 [Last Taken 05/27 08:00] Cholecalciferol Vit D3 [Vitamin D3 (*)] 1,000 units PO DAILY@1200 01/19/18 [ Last Taken 11/15/18] Herbals/Supplements -Info Only 1 tab PO DAILY 01/19/18 [Last Taken 01/19/18] Multivitamins [Multivitamin (*)] 1 each PO DAILY@1200 01/19/18 [Last Taken 11/15] Acetaminophen [Tylenol ES 500 mg (*)] 1,000 mg PO TID 11/16/18 [Last Taken 11/16 08:00] Furosemide [Lasix 40 MG (*)] 40 mg PO DAILY 11/16/18 [Last Taken 11/16/18] Levothyroxine Sodium [Levothyroxine Sodium] 100 mg PO DAILY@0600 11/16/18 [Last Taken 11/16/18 06:00] Lisinopril [Zestril 40 mg (*)] 40 mg PO DAILY 11/16/18 [Last Taken 11/16/18] [place]-3 Fatty Acids [Fish Oil 1000 mg (*)] 1,000 mg PO DAILY@1200 11/16/18 [ Last Taken 11/15/18] Potassium Chloride [Klor-Con 10] 10 meq PO DAILY 11/16/18 [Last Taken 11/16/18] Primidone [Mysoline] 100 mg PO BID 11/16/18 [Last Taken 11/16/18 08:00] I have personally reviewed and updated: family history, medical history, social history - Past Medical History DVT, hypertension, hyperlipidemia, pulmonary embolism (With subsequent pulmonary hypertension) Additional medical history: Chronic kidney disease stage 3. gout. microscopic colitis--followed by Cisneros. pulmonary htn. Hypothyroidism. osteoporosis. essential tremor - Surgical History Additional surgical history: L3-L5 laminectomy in August of 2017. Right hip surgery. Knee surgery. Hysterectomy. Multiple joint injections, most recently left knee - Family History Positive for: non-pertinent - Social History Smoking Status: Never smoked Alcohol Use: None Drug Use: None Additional social history: Lives in her own home, uses a walker to ambulate, has a daughter who helps a lot but she currently has a broken hip Review of Systems Review of Systems: ROS: 10pt was reviewed & negative except for what was stated in HPI & below Physical Exam Physical Exam: Temp Pulse Resp BP Pulse Ox 36.7 C 63 16 153/93 H 95 11/16/18 12:18 11/16/18 16:12 11/16/18 16:12 11/16/18 16:12 11/16/18 16:12 Constitutional: not in pain, chronically ill appearing Eyes: PERRL, anicteric sclera Ears, Nose, Mouth, Throat: moist mucous membranes, hearing normal Cardiovascular: regular rate and rhythym, systolic murmur, No edema Respiratory: no respiratory distress, no rales or rhonchi Gastrointestinal: normoactive bowel sounds, soft, non-tender abdomen Genitourinary: no bladder tenderness Skin: warm, normal color Musculoskeletal: full muscle strength Neurologic: AAOx3 Psychiatric: interacting appropriately, not anxious, not encephalopathic Lab Data & Imaging Review 11/16/18 11:04 11/16/18 11:04 WBC 6.11 10^3/uL (3.80-9.50) 11/16/18 11:04 RBC 3.84 10^6/uL (4.18-5.33) L 11/16/18 11:04 Hgb 12.0 g/dL (12.6-16.3) L 11/16/18 11:04 Hct 36.2 % (38.0-47.0) L 11/16/18 11:04 MCV 94.3 fL (81.5-99.8) 11/16/18 11:04 MCH 31.3 pg (27.9-34.1) 11/16/18 11:04 MCHC 33.1 g/dL (32.4-36.7) 11/16/18 11:04 RDW 17.0 % (11.5-15.2) H 11/16/18 11:04 Plt Count 294 10^3/uL (150-400) 11/16/18 11:04 MPV 11.4 fL (8.7-11.7) 11/16/18 11:04 Neut % (Auto) 72.9 % (39.3-74.2) 11/16/18 11:04 Lymph % (Auto) 13.9 % (15.0-45.0) L 11/16/18 11:04 Schleicher % (Auto) 10.0 % (4.5-13.0) 11/16/18 11:04 Eos % (Auto) 2.1 % (0.6-7.6) 11/16/18 11:04 Baso % (Auto) 0.8 % (0.3-1.7) 11/16/18 11:04 Nucleat RBC Rel Count 0.0 % (0.0-0.2) 11/16/18 11:04 Absolute Neuts (auto) 4.45 10^3/uL (1.70-6.50) 11/16/18 11:04 Absolute Lymphs (auto) 0.85 10^3/uL (1.00-3.00) L 11/16/18 11:04 Absolute Monos (auto) 0.61 10^3/uL (0.30-0.80) 11/16/18 11:04 Absolute Eos (auto) 0.13 10^3/uL (0.03-0.40) 11/16/18 11:04 Absolute Basos (auto) 0.05 10^3/uL (0.02-0.10) 11/16/18 11:04 Absolute Nucleated RBC 0.00 10^3/uL (0-0.01) 11/16/18 11:04 Immature Gran % 0.3 % (0.0-1.1) 11/16/18 11:04 Immature Gran # 0.02 10^3/uL (0.00-0.10) 11/16/18 11:04 Sodium 136 mEq/L (135-145) 11/16/18 11:04 Potassium 4.2 mEq/L (3.5-5.2) 11/16/18 11:04 Chloride 103 mEq/L (97-110) 11/16/18 11:04 Carbon Dioxide 21 mEq/l (22-31) L 11/16/18 11:04 Anion Gap 12 mEq/L (6-14) 11/16/18 11:04 BUN 31 mg/dL (7-23) H 11/16/18 11:04 Creatinine 1.0 mg/dL (0.6-1.0) 11/16/18 11:04 Estimated GFR 53 11/16/18 11:04 Glucose 111 mg/dL (70-100) H 11/16/18 11:04 Calcium 9.8 mg/dL (8.5-10.4) 11/16/18 11:04 Assessment & Plan Assessment: Dehydration (Acute) Diarrhea (Acute) 83 yo F with PMH of microscopic colitis, ckd, and chronic diarrhea presenting with increased BM and weakness # acute on chronic diarrhea: patient reports at least 2 episodes of large volume and now watery stools for the last 2 weeks with a baseline of similar sxs it sounds like on review of her outpatient records. She has had multiple positive PCR tests for c diff and has been treated several times, but more recently colonoscopy confirmed no signs of c diff and felt to be colonization-- followed by [facility] as an OP. Plan to repeat GI pathogen panel if diarrhea recurs, IVF, monitor overnight. # weakness: in setting of above as well as recent revised left TKA that was complicated by post operative infection, she has been doing well and recently released from home pt/ot but now weaker in setting of worsening diarrhea and poor po intake. Will have pt/ot evaluate, she is hopeful to return home but with her daughter unable to help may in fact require SNF--tbd # microscopic colitis: on recent colonoscopy this was noted to be somewhat active, she was placed on increased dose of budesonide # ckd: currently slightly better than her usual baseline creatinine of 1.2, will monitor # chronic back pain: per her report this comes and goes in severity, currently not having a flare, continue home meds and usual f/u # chronic medical issues: hypothyroid, HTN, HLD, essential tremor--continue home meds # FC # observation status for now, hopeful that with IVF she will be able to dc back home in am Patient new to my care. Old records reviewed and summarized as above. Care plan reviewed with ER doctor as above.
[2018-11-16] MEDS: POTASSIUM CL 10 MEQ TAB PO SCH (19:58)
[2018-11-16] MEDS: METOPROLOL TARTRATE 50 MG TAB PO SCH (22:02)
[2018-11-16] MEDS: PRIMIDONE 50 MG TAB PO SCH (22:02)
[2018-11-16] MEDS: PRESERVISION AREDS2 FORMULA EYE VIT 1 EACH PO SCH (22:03)
[2018-11-16] MEDS: cycloSPORINE 0.05% 30 DROPERETTE/BOX EACHEYE SCH (22:03)
[2018-11-17 04:44] LABS: PLATELET COUNT 233 10^3/uL (150-400)
[2018-11-17] MEDS ORDERED: LEVOTHYROXINE 100 MCG TAB PO SCH (06:00)
[2018-11-17] MEDS: LEVOTHYROXINE 100 MCG TAB PO SCH (06:32)
[2018-11-17] MEDS: METOPROLOL TARTRATE 50 MG TAB PO SCH ×2 (08:31→21:17)
[2018-11-17] MEDS: PRESERVISION AREDS2 FORMULA EYE VIT 1 EACH PO SCH ×2 (08:31→21:18)
[2018-11-17] MEDS: PRIMIDONE 50 MG TAB PO SCH ×2 (08:31→21:17)
[2018-11-17] MEDS: LISINOPRIL 40 MG TAB PO SCH (08:31)
[2018-11-17] MEDS: POTASSIUM CL 10 MEQ TAB PO SCH (08:31)
[2018-11-17] MEDS: BUDESONIDE 3 MG EC CAP PO SCH (08:31)
[2018-11-17] MEDS: cycloSPORINE 0.05% 30 DROPERETTE/BOX EACHEYE SCH ×2 (08:32→21:19)
[2018-11-17] MEDS: ENOXAPARIN 30 MG/0.3 ML SYR SC SCH (08:32)
[2018-11-17] MEDS ORDERED: FUROSEMIDE 40 MG TAB PO SCH (09:00)
--- NOTE | 2018-11-17 09:09 | ASMTCMCOM ---
CM Note CM Note Notes: Chart reviewed. Patient admitted via ED with c/o diarrhea and weakness. She felt too weak to dc from ED as her daughter who is her primary help has suffered a fractured hip. PT/OT evaluations pending. CM to follow for needs. Plan: TBD Date Signed: 11/17/2018 09:08 AM Electronically Signed By:Laurie Sosa RN
[2018-11-17] MEDS: CHOLECALCIFEROL VIT D3 1,000 UNITS TAB PO SCH (12:39)
[2018-11-17] MEDS: ALLOPURINOL 300 MG TAB PO SCH (12:39)
[2018-11-17] MEDS: MULTIVITAMINS 1 EACH TAB PO SCH (12:39)
[2018-11-17] MEDS: GLUCOSAMINE SULF 500 MG CAP PO SCH (12:39)
[2018-11-17] MEDS: OMEGA-3 FATTY ACIDS 1,000 MG CAP PO SCH (12:39)
[2018-11-17] MEDS: CYANO/VITAMIN B12 1000 MCG TAB PO SCH (12:39)
--- NOTE | 2018-11-17 13:32 | HOSPPROG ---
Hospitalist Progress Note Assessment/Plan: # Acute on chronic diarrhea: treated for C diff in past and several + PCRs + C diff, but colonoscopy (03/26) showed no signs of infection. Current sxs: 2 "peanut-butter" thick stools day. +nausea, no abd pain or fevers -based on that data, will not treat. Can discuss with Dr. Pichardo Sunday. Endoscopy is likely only way to diagnosis if clinically indicated #Weakness: due to above. PT recs another day for therapy tomorrow #Microscopic colitis: active on recent scope. Dose Budesonide increased then #CKD: stable #CBP: home meds #Chronic med issues: home meds for hypothyroidism HTN, HLD, essential tremor Diet:reg DVT ppx: Lovenox Disp: inpatient admission for PT. Still weak and at risk for fall and subsequent harm Discussed plan with her daughter on the phone Subjective: no abdominal pain, fevers Objective: Vital Signs Temp Pulse Resp BP Pulse Ox 36.5 C 78 17 137/83 H 95 11/17/18 07:05 11/17/18 08:31 11/17/18 07:05 11/17/18 08:31 11/17/18 07:05 Laboratory Results 11/17/18 04:05 11/17/18 04:05 11/16/18 11/17/18 11/18/18 05:59 05:59 05:59 Intake Total 1300 Balance 1300 - Time Spent With Patient Time Spent with Patient: greater than 35 minutes Time Spent with Patient: Greater than 35 minutes spent on this patients care, greater than 50% of time spent counseling, educating, and coordinating care regarding the above mentioned plan. - Physical Exam Constitutional: no apparent distress Eyes: PERRL Ears, Nose, Mouth, Throat: moist mucous membranes Cardiovascular: regular rate and rhythym Respiratory: no respiratory distress, no rales or rhonchi Gastrointestinal: normoactive bowel sounds, soft, non-tender abdomen Genitourinary: no bladder fullness Skin: warm Musculoskeletal: generalized weakness Neurologic: AAOx3 Psychiatric: anxious ICD10 Worksheet Patient Problems: Problems Problem Status Onset Dehydration Acute Diarrhea Acute C. difficile colitis Acute Intractable low back pain Acute Polypharmacy Acute Pulmonary embolism Acute Radicular low back pain Acute Weakness Acute
--- NOTE | 2018-11-17 15:34 | PDMN ---
Medical Necessity Medical necessity: [facility] [place] M170 Gastroenteritis, A-2 days: 83 yo w/ acute on chronic diarrhea and weakness. Initially OBS for workup, tx w/ IVF but +Cdiff, will f/u w/ ID, poss endoscopy, pt still weak, PT/OT - PT recommends additional day for ongoing therapy, pt is at risk for fall and subsequent harm. Pt requires additional MN for ongoing monitoring and tx of the above. Change to IP status 11/17/18@1330 per MD order. Hx DVT, HTN, HLD, PE, CKD, microscopic colitis
[2018-11-17] MEDS: ACETAMINOPHEN 325 MG TAB PO PRN (21:19)
[2018-11-18] MEDS: LEVOTHYROXINE 100 MCG TAB PO SCH (06:25)
[2018-11-18] MEDS: BUDESONIDE 3 MG EC CAP PO SCH (08:40)
[2018-11-18] MEDS: LISINOPRIL 40 MG TAB PO SCH (08:41)
[2018-11-18] MEDS: PRIMIDONE 50 MG TAB PO SCH ×2 (08:42→20:25)
[2018-11-18] MEDS: POTASSIUM CL 10 MEQ TAB PO SCH (08:43)
[2018-11-18] MEDS: METOPROLOL TARTRATE 50 MG TAB PO SCH ×2 (08:43→20:30)
[2018-11-18] MEDS: ENOXAPARIN 30 MG/0.3 ML SYR SC SCH (08:44)
[2018-11-18] MEDS: PRESERVISION AREDS2 FORMULA EYE VIT 1 EACH PO SCH ×2 (08:44→20:26)
[2018-11-18] MEDS: cycloSPORINE 0.05% 30 DROPERETTE/BOX EACHEYE SCH ×2 (08:46→20:26)
--- NOTE | 2018-11-18 09:51 | ASMTCMCOM ---
CM Note CM Note Notes: PT/OT are both recommending home with no needs. Patient to d/c independently. CM available should d/c needs arise. Date Signed: 11/18/2018 09:49 AM Electronically Signed By:Fifi Quiroga LCSW
--- NOTE | 2018-11-18 10:33 | PCMIDPN ---
Assessment/Plan: Assessment: Slightly loose stools in the setting of persistent positive GI PCR for C difficile. Underlying known biopsy-proven microscopic colitis. Suspect the patient is having a flare of this colitis as opposed to any issue with C difficile colitis given her low severity of symptoms and her normal white blood cell count. Favor no antibiotic treatment at this point. Plan: 1. Suspect the patient is ready for discharge home. 2. Follow up with GI for management of her symptoms. 11/18/18 10:31 Subjective: Patient is sitting up in her chair in her hospital room. She is dressed in casual clothing. She relates that she is able to walk more than 500 steps around the unit. She has had 2 bowel movements over the past 24 hr which are paste like in consistency. Denies any fevers or chills. Objective: No antibiotics Vital Signs Temp Pulse Resp BP Pulse Ox 36.6 C 63 16 125/65 H 90 L 11/18/18 07:26 11/18/18 08:43 11/18/18 07:26 11/18/18 08:43 11/18/18 07:26 Laboratory Results 11/18/18 04:45 11/17/18 11/18/18 11/19/18 05:59 05:59 05:59 Intake Total 600 Balance 600 - Physical Exam General Appearance: WD/WN, alert, no apparent distress, non-toxic Skin: normal color, warm/dry, No rash Neuro/Psych: alert, normal mood/affect, oriented x 3 ICD10 Worksheet Patient Problems: Problems Problem Status Onset Dehydration Acute Diarrhea Acute C. difficile colitis Acute Intractable low back pain Acute Polypharmacy Acute Pulmonary embolism Acute Radicular low back pain Acute Weakness Acute
[2018-11-18] MEDS ORDERED: NS 500 ML IV ONE (11:19)
[2018-11-18] MEDS ORDERED: NS 1,000 ML IV SCH (11:30)
[2018-11-18] MEDS: GLUCOSAMINE SULF 500 MG CAP PO SCH (11:58)
[2018-11-18] MEDS: CYANO/VITAMIN B12 1000 MCG TAB PO SCH (11:58)
[2018-11-18] MEDS: MULTIVITAMINS 1 EACH TAB PO SCH (11:59)
[2018-11-18] MEDS: CHOLECALCIFEROL VIT D3 1,000 UNITS TAB PO SCH (11:59)
[2018-11-18] MEDS: OMEGA-3 FATTY ACIDS 1,000 MG CAP PO SCH (11:59)
[2018-11-18] MEDS: ALLOPURINOL 300 MG TAB PO SCH (12:00)
--- NOTE | 2018-11-18 19:03 | HOSPPROG ---
Hospitalist Progress Note Assessment/Plan: DIAGNOSES: * Acute dehydration likely from diarrhea * Symptomatic orthostasis from above * Recent Diarrhea is likely an exacerbation of her chronic microscopic colitis * Hypothyroidism, currently still undertreated * Gait instability caused by orthostasis and bad knee leaving her at high fall risk, unsafe to be at home today * Chronic kidney disease * Chronic back pain * History of C diff with recurrent positive C diff testing but no evidence of clinical C diff or in previous checks no endoscopic evidence of C diff PLANS: * A bolus of IV saline was given and further IV fluid will be given overnight * Fall risk precautions * Recheck orthostatic Symptoms and numbers in the morning I reviewed * I reviewed her thyroid issues in detail with her primary care physician Dr. Nagy, she will need probably higher dose but I am waiting to get records from [facility] relating thyroid testing she had there in September Seen by me on hospitalist rounds as well as multidisciplinary rounds today Total of greater than 45 min of bedside in 3 different visits including time spent reviewing her care plan with her daughter at bedside SUBJECTIVE: Diarrhea is resolving Even after a bolus of 500 mL of normal saline today she remains symptomatic lead fairly orthostatic, not feeling safe to walk without a walker even across the room No abdominal pain No fever symptoms OBJECTIVE Vitals reviewed: Stable without fever Exam: alert oriented skin warm dry color ok resps not labored lungs clear BSs heart regular abd soft nondistended nontender, bowel sounds present limbs warm, no edema iv site ok Lab data: BUN remains elevated at 32 with stable creatinine TSH high at 19 (was 7 in July, and then in August apparently was high again leading to an increase in her dose from 88-100 mcg) Objective: Vital Signs Temp Pulse Resp BP Pulse Ox 36.6 C 63 18 113/68 93 11/18/18 16:20 11/18/18 16:20 11/18/18 16:20 11/18/18 16:20 11/18/18 16:20 Laboratory Results 11/18/18 04:45 11/17/18 11/18/18 11/19/18 06:59 06:59 06:59 Intake Total 600 750 Balance 600 750 - Time Spent With Patient Time Spent with Patient: greater than 35 minutes Time Spent with Patient: Greater than 35 minutes spent on this patients care, greater than 50% of time spent counseling, educating, and coordinating care regarding the above mentioned plan. ICD10 Worksheet Patient Problems: Problems Problem Status Onset Dehydration Acute Diarrhea Acute C. difficile colitis Acute Intractable low back pain Acute Polypharmacy Acute Pulmonary embolism Acute Radicular low back pain Acute Weakness Acute
[2018-11-18] MEDS: ACETAMINOPHEN 325 MG TAB PO PRN (20:26)
[2018-11-19] MEDS: LEVOTHYROXINE 100 MCG TAB PO SCH (06:02)
[2018-11-19] MEDS: METOPROLOL TARTRATE 50 MG TAB PO SCH ×2 (08:52→20:56)
[2018-11-19] MEDS: BUDESONIDE 3 MG EC CAP PO SCH (08:52)
[2018-11-19] MEDS: POTASSIUM CL 10 MEQ TAB PO SCH (08:53)
[2018-11-19] MEDS: PRESERVISION AREDS2 FORMULA EYE VIT 1 EACH PO SCH ×2 (08:53→20:56)
[2018-11-19] MEDS: LISINOPRIL 40 MG TAB PO SCH ×2 (08:53→09:50)
[2018-11-19] MEDS: ENOXAPARIN 30 MG/0.3 ML SYR SC SCH (08:53)
[2018-11-19] MEDS: PRIMIDONE 50 MG TAB PO SCH ×2 (09:06→20:56)
[2018-11-19] MEDS: cycloSPORINE 0.05% 30 DROPERETTE/BOX EACHEYE SCH ×2 (09:08→20:56)
--- NOTE | 2018-11-19 11:47 | ASMTCMCOM ---
CM Note CM Note Notes: Issues with patient's TSH, which remains high at 19. Still resolving these along with acute dehydration. Patient d/c plan remains home with [facility] for nursing and medication assist. CM following. Date Signed: 11/19/2018 11:45 AM Electronically Signed By:Fifi Quiroga LCSW
[2018-11-19] MEDS: CHOLECALCIFEROL VIT D3 1,000 UNITS TAB PO SCH (12:40)
[2018-11-19] MEDS: OMEGA-3 FATTY ACIDS 1,000 MG CAP PO SCH (12:41)
[2018-11-19] MEDS: MULTIVITAMINS 1 EACH TAB PO SCH (12:41)
[2018-11-19] MEDS: GLUCOSAMINE SULF 500 MG CAP PO SCH (12:41)
[2018-11-19] MEDS: CYANO/VITAMIN B12 1000 MCG TAB PO SCH (12:41)
[2018-11-19] MEDS: ALLOPURINOL 300 MG TAB PO SCH (12:41)
--- NOTE | 2018-11-19 18:59 | HOSPPROG ---
Hospitalist Progress Note Assessment/Plan: DIAGNOSES: * Acute dehydration likely from diarrhea * Symptomatic orthostatic hypotension likely multifactorial with autonomic insufficiency, lisinopril, relative dehydration, and other issues contributing -no response to further IV hydration overnight; her recent multiple hospitalizations and nursing facility stays may be partly causative over the past few months * Recent Diarrhea is likely an exacerbation of her chronic microscopic colitis * Hypothyroidism, currently still undertreated at her pre-admission dose * Gait instability caused by orthostasis and bad knee leaving her at high fall risk, unsafe to be at home today * Chronic kidney disease * Chronic back pain * Chronic C diff colonization, 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 PLANS: * Fall risk precautions * Recheck orthostatic Symptoms and numbers in the morning * Levothyroxine dose increased to 125 mcg at this time * Could consider adrenal testing but she is on chronic budesonide orally and would need to stop that medicine for at least a couple days before performing test Seen by me on hospitalist rounds as well as multidisciplinary rounds today SUBJECTIVE: Diarrhea is resolving Still having significant orthostatic symptoms and significant orthostatic vital sign changes today No abdominal pain No fever symptoms OBJECTIVE Vitals reviewed: Stable without fever Exam: alert oriented skin warm dry color ok resps not labored lungs clear BSs heart regular abd soft nondistended nontender, bowel sounds present limbs warm, no edema iv site ok Objective: Vital Signs Temp Pulse Resp BP Pulse Ox 36.6 C 71 16 157/88 H 93 11/19/18 16:00 11/19/18 16:00 11/19/18 16:00 11/19/18 16:00 11/19/18 16:00 Laboratory Results 11/18/18 04:45 11/18/18 11/19/18 11/20/18 06:59 06:59 06:59 Intake Total 600 2561 500 Balance 600 2561 500 ICD10 Worksheet Patient Problems: Problems Problem Status Onset Dehydration Acute Diarrhea Acute C. difficile colitis Acute Intractable low back pain Acute Polypharmacy Acute Pulmonary embolism Acute Radicular low back pain Acute Weakness Acute
--- NOTE | 2018-11-19 19:06 | HOSPPROG ---
Hospitalist Progress Note Assessment/Plan: DIAGNOSES: * Acute dehydration likely from diarrhea * Symptomatic orthostatic hypotension likely multifactorial with autonomic insufficiency, recently increased lisinopril dose, relative dehydration, and other issues contributing -no response to further IV hydration overnight; her recent multiple hospitalizations and nursing facility stays may be partly causative over the past few months * Hypertension, chronic but increasing systolic blood pressures recently * Recent Diarrhea is likely an exacerbation of her chronic microscopic colitis * Hypothyroidism, currently still undertreated at her pre-admission dose * Gait instability caused by orthostasis and bad knee leaving her at high fall risk, unsafe to be at home today * Chronic kidney disease * Chronic back pain * Chronic C diff colonization, 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 PLANS: * Fall risk precautions * Discontinue IV fluids * Hold lisinopril for now * Recheck orthostatic Symptoms and numbers in the morning * May need to try other blood pressure medicines for her systolic BP is, may need to allow higher blood pressures to treat orthostasis effectively * Levothyroxine dose increased to 125 mcg at this time * Could consider adrenal testing but she is on chronic budesonide orally and would need to stop that medicine for at least a couple days before performing test Seen by me on hospitalist rounds as well as multidisciplinary rounds today SUBJECTIVE: Diarrhea is resolving Still having significant orthostatic symptoms and significant orthostatic vital sign changes today No abdominal pain No fever symptoms OBJECTIVE Vitals reviewed: Stable without fever Exam: alert oriented skin warm dry color ok resps not labored lungs clear BSs heart regular abd soft nondistended nontender, bowel sounds present limbs warm, no edema iv site ok Objective: Vital Signs Temp Pulse Resp BP Pulse Ox 36.6 C 71 16 157/88 H 93 11/19/18 16:00 11/19/18 16:00 11/19/18 16:00 11/19/18 16:00 11/19/18 16:00 Laboratory Results 11/18/18 04:45 11/18/18 11/19/18 11/20/18 06:59 06:59 06:59 Intake Total 600 2561 500 Balance 600 2561 500 ICD10 Worksheet Patient Problems: Problems Problem Status Onset Dehydration Acute Diarrhea Acute C. difficile colitis Acute Intractable low back pain Acute Polypharmacy Acute Pulmonary embolism Acute Radicular low back pain Acute Weakness Acute
[2018-11-20] MEDS: LEVOTHYROXINE 125 MCG TAB PO SCH (04:54)
[2018-11-20 05:09] LABS: PLATELET COUNT 204 10^3/uL (150-400)
[2018-11-20] MEDS ORDERED: COSYNTROPIN 0.25 MG/2 ML SYRINGE IVP ONE (06:00)
[2018-11-20] MEDS: BUDESONIDE 3 MG EC CAP PO SCH (08:41)
[2018-11-20] MEDS: METOPROLOL TARTRATE 50 MG TAB PO SCH ×2 (08:42→20:42)
[2018-11-20] MEDS: PRESERVISION AREDS2 FORMULA EYE VIT 1 EACH PO SCH ×2 (08:42→20:42)
[2018-11-20] MEDS: cycloSPORINE 0.05% 30 DROPERETTE/BOX EACHEYE SCH ×2 (08:42→20:44)
[2018-11-20] MEDS: PRIMIDONE 50 MG TAB PO SCH ×2 (08:42→20:42)
[2018-11-20] MEDS: ENOXAPARIN 40 MG/0.4 ML SYR SC SCH (08:42)
[2018-11-20] MEDS: POTASSIUM CL 10 MEQ TAB PO SCH (08:42)
[2018-11-20] MEDS: LISINOPRIL 40 MG TAB PO SCH (08:54)
[2018-11-20] MEDS: CHOLECALCIFEROL VIT D3 1,000 UNITS TAB PO SCH (12:08)
[2018-11-20] MEDS: GLUCOSAMINE SULF 500 MG CAP PO SCH (12:08)
[2018-11-20] MEDS: CYANO/VITAMIN B12 1000 MCG TAB PO SCH (12:08)
[2018-11-20] MEDS: ALLOPURINOL 300 MG TAB PO SCH (12:08)
[2018-11-20] MEDS: OMEGA-3 FATTY ACIDS 1,000 MG CAP PO SCH (12:08)
[2018-11-20] MEDS: MULTIVITAMINS 1 EACH TAB PO SCH (12:08)
--- NOTE | 2018-11-20 13:33 | ASMTCMCOM ---
CM Note CM Note Notes: Per Dr. Johnson, in addition to medication help through home health, pt could benefit from PT and OT. CM sent note through [employer] on existing [facility] referral that she needs PT and OT as well. Pt lives alone at home. She has a daughter in [place] who will not be able to help her very much due to a recently fractured hip. Pt uses a walker due to her bad knee. She is feeling weak in her walking. CM will continue to follow. CM D/C plan: Home with homecare RN ([facility]), PT, and OT services Date Signed: 11/20/2018 01:32 PM Electronically Signed By:Padmaja Mason
--- NOTE | 2018-11-20 13:55 | ASMTCMCOM ---
CM Note CM Note Notes: Per [facility], they can take her for RN, PT, and OT starting this weekend. Date Signed: 11/20/2018 01:54 PM Electronically Signed By:Padmaja Mason
--- NOTE | 2018-11-20 14:41 | HOSPPROG ---
Hospitalist Progress Note Assessment/Plan: DIAGNOSES: * Acute dehydration likely from diarrhea - now resolved and rehydrated * Symptomatic orthostatic hypotension likely multifactorial with autonomic insufficiency, recently increased lisinopril dose, relative dehydration, and other issues contributing -symptoms much better and vital sign changes resolved with discontinuation of lisinopril and rehydration * Hypertension: A bit higher off Lasix and lisinopril * New inversion of left nipple with otherwise unremarkable breast exam, no recent mammograms (newly identified problem today) * Recent Diarrhea is likely an exacerbation of her chronic microscopic colitis * Hypothyroidism, currently still undertreated at her pre-admission dose * Gait instability caused by orthostasis and bad knee leaving her at high fall risk * Chronic kidney disease * Chronic back pain * Chronic C diff colonization, 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 PLANS: * Fall risk precautions * Continue off lisinopril and Lasix * Will start amlodipine and follow overnight to be sure that she tolerates that well * Recheck orthostatic Symptoms and numbers in the morning * Likely discharge tomorrow as long she is stable from an orthostasis and fall risk standpoint * Levothyroxine dose increased to 125 mcg at this time, this will need very careful follow-up in outpatient setting * She has received a notice that she is due for mammogram and particularly with her new nipple inversion of recommended that she proceed to schedule that in the near future in outpatient setting Seen by me on hospitalist rounds as well as multidisciplinary rounds today SUBJECTIVE: No diarrhea at present Orthostatic symptoms much better still mildly lightheaded but walking around feeling much safer and more steady Today She mentions that she notices that her left nipple is newly inverted, no pain or drainage OBJECTIVE Vitals reviewed: Today she no longer has orthostatic blood pressure or pulse abnormalities, but her systolic blood pressure is in the 150s Exam: alert oriented skin warm dry color ok resps not labored Breast exams today show a mild partial inversion of the left nipple which has never been present for her in the past. There are no other changes in the breast contour and the breast exam is remarkable for some fairly diffuse lumpy breast gland tissue given her age but no discrete mass or other abnormalities identified. The right breast exam is unremarkable lungs clear BSs heart regular abd soft nondistended nontender, bowel sounds present limbs warm, no edema iv site ok Lab data: BUN improved to 24 Objective: Vital Signs Temp Pulse Resp BP Pulse Ox 36.4 C 64 16 159/85 H 95 11/20/18 08:00 11/20/18 11:55 11/20/18 08:00 11/20/18 11:55 11/20/18 08:00 Laboratory Results 11/20/18 04:44 11/20/18 04:44 11/19/18 11/20/18 11/21/18 06:59 06:59 06:59 Intake Total 2561 800 Balance 2561 800 - Time Spent With Patient Time Spent with Patient: greater than 35 minutes Time Spent with Patient: Greater than 35 minutes spent on this patients care, greater than 50% of time spent counseling, educating, and coordinating care regarding the above mentioned plan. ICD10 Worksheet Patient Problems: Problems Problem Status Onset Dehydration Acute Diarrhea Acute C. difficile colitis Acute Intractable low back pain Acute Polypharmacy Acute Pulmonary embolism Acute Radicular low back pain Acute Weakness Acute
[2018-11-20] MEDS: amLODIPine BESYLATE 5 MG TAB PO SCH (15:27)
[2018-11-20] MEDS ORDERED: LOPERAMIDE HCL 2 MG CAP PO PRN (17:04)
[2018-11-20] MEDS: ACETAMINOPHEN 325 MG TAB PO PRN (20:42)
[2018-11-21] MEDS: LEVOTHYROXINE 125 MCG TAB PO SCH (05:28)
[2018-11-21] MEDS: PRIMIDONE 50 MG TAB PO SCH (08:42)
[2018-11-21] MEDS: cycloSPORINE 0.05% 30 DROPERETTE/BOX EACHEYE SCH (08:42)
[2018-11-21] MEDS: BUDESONIDE 3 MG EC CAP PO SCH (08:43)
[2018-11-21] MEDS: METOPROLOL TARTRATE 50 MG TAB PO SCH (08:43)
[2018-11-21] MEDS: amLODIPine BESYLATE 5 MG TAB PO SCH (08:43)
[2018-11-21] MEDS: PRESERVISION AREDS2 FORMULA EYE VIT 1 EACH PO SCH (08:43)
[2018-11-21] MEDS: POTASSIUM CL 10 MEQ TAB PO SCH (08:43)
[2018-11-21] MEDS: ENOXAPARIN 40 MG/0.4 ML SYR SC SCH (08:43)
[2018-11-21] MEDS: ACETAMINOPHEN 325 MG TAB PO PRN (10:13)
--- NOTE | 2018-11-21 10:13 | PDDCSUM ---
Discharge Summary Discharge Summary: DISCHARGE DIAGNOSES: * Symptomatic orthostatic hypotension * Acute dehydration * Hypertension * Undertreated hypothyroidism * Chronic diarrhea with acute exacerbation chronic chronic microscopic colitis * Chronic C diff colonization without evidence of colitis * Newly identified inversion of left nipple * Gait instability with orthostasis and chronic knee pain * Chronic back pain CONSULTANTS: Dr. Antony Pichardo infectious disease HOSPITAL COURSE SUMMARY: This patient came in complaining of significant weakness and was found to be dehydrated with elevated BUN. She was having some loose stools at home and she does have a history of chronic microscopic colitis. She was found to be quite orthostatic. Notably she has 2 changes related to that including a recent increase in lisinopril dose with ongoing use of diuretic, the 2nd being that she has had extensive prolonged hospitalizations and nursing facility stays over the past several months probably leading to some autonomic dysfunction. Here she was treated with IV hydration and her diuretic held. However after complete repletion of her fluid volume she was still quite orthostatic by symptoms and numbers. Her lisinopril was stopped and this led to resolution of the orthostasis, however her blood pressures did come up with what diastolics in the 160s. She has now been started on some amlodipine at 5 mg daily and has better blood pressure and still no orthostasis. Additionally it was noted that she has a TSH that is elevated. Her thyroid dose had been increased in the recent past due to a high TSH. This would been done in a nursing facility and so far have not been able to determine what her TSH was or exactly when her thyroid dose was changed. TSH currently at 19. At this point since it sounds like the dose change was probably made in early September , I will increase her thyroid dose further to 112 mcg and she will need close follow-up of her thyroid function in terms of symptoms and blood test. Finally the patient noticed during her hospital stay here some mild inversion of the left nipple which is new. There is no pain and she did not notice any discharge or mass. On my exam there was a small inversions centrally within the nipple but I could find no other concerning findings on examination. She does notably however have fairly lumpy breast tissue still at this time. She has not had any imaging studies for some time and it would be reasonable to have her get imaging studies so a mammogram could be arranged in the outpatient setting. I have placed a call to the office of Dr. Antolin Nayg her primary care doctor to review all the findings and changes. PENDING TEST RESULTS: None new line MEDICATION CHANGES: Lasix and lisinopril are discontinued Amlodipine is added at 5 mg daily FOLLOW-UP PLAN: She is to make an appointment to see Dr. Nagy within a week She is to keep track of blood pressure lists to take to see Dr. Nagy She should have Dr. Nagy arrange for her to have mammogram Greater than 35 minutes bedside and care coordination time today
[2018-11-21 10:14] VITALS: BP 138/78
[2018-11-21] MEDS: CHOLECALCIFEROL VIT D3 1,000 UNITS TAB PO SCH (11:08)
[2018-11-21] MEDS: GLUCOSAMINE SULF 500 MG CAP PO SCH (11:08)
[2018-11-21] MEDS: CYANO/VITAMIN B12 1000 MCG TAB PO SCH (11:08)
[2018-11-21] MEDS: ALLOPURINOL 300 MG TAB PO SCH (11:08)
[2018-11-21] MEDS: MULTIVITAMINS 1 EACH TAB PO SCH (11:08)
[2018-11-21] MEDS: OMEGA-3 FATTY ACIDS 1,000 MG CAP PO SCH (11:08)
--- NOTE | 2018-11-21 14:24 | ASMTLACE ---
LACE Length of stay for Answers: 4-6 days current admission Acuity / Level of Answers: Yes Care: Did the patient have an inpatient admission? Comorbidities - select Answers: History of falls all that apply Mild liver or renal disease # of Emergency department Answers: 1-2 visits in the last 6 months Social determinants Answers: Lack of community resources and/or lack of social support (no pcp, lives alone, transportation, mick d) Score: 17 Date Signed: 11/21/2018 02:23 PM Electronically Signed By:Margie Bacon RN
--- NOTE | 2018-11-21 14:25 | ASMTDCNOTE ---
Case Management Discharge Discharge Order Complete? Answers: Yes Patient to Obtain Answers: Independently Medications Transportation Arranged Answers: Family/Friends Faxed Final Orders Answers: Yes Family Notified Answers: Yes Discharge Comments Notes: Patient discharged home with support of family. [facility] to follow for homecare services. Date Signed: 11/21/2018 02:24 PM Electronically Signed By:Margie Bacon RN
--- NOTE | 2018-11-21 15:49 | PDIAF ---
- Diagnosis Diagnosis: orthostasis, L Knee dysfunction, HTN, chronic diarrhea Code Status: Full Code - Medication Management Discharge Medications: electronically signed and located in the Home Medication List. - Orders Services needed: Home Care, Registered Nurse, Physical Therapy, Occupational Therapy Home Care Face to Face: I certify that this patient was under my care and that I had the required [id number] encounter meeting the encounter requirements on the discharge day. My findings support the fact that the patient is homebound as defined in Home Care Face to Face Continued: CMS Chapter 7 Medicare Benefits Manual 30.1.1 , The condition of the patient is such that there exists a normal inability to leave home and consequently, leaving home would require a considerable and taxing effort. Isolation Type: CDIFF Isolation Diet Recommendation: no restrictions on diet Diet Texture: Regular Texture Diet Additional Instructions: Make a follow up appointment with Dr Nagy for next week. Check BP twice a day until then, take numbers to appointment. You shuold be sitting in a chair for 3-5 minutes before the blood pressure checks. Please have Dr. Nagy assist you with scheduling an outpatient mammogram. - Follow Up Care Current Providers and Referrals: Antolin Nagy MD [Primary Care Provider] -
== END 2018-11-21 14:58 | disposition home or self-care (01) | DRG 392 ==
LOC: EDUNIT# → F1N 17:26 → OBSVTOIN 11-17 13:30
PROVIDERS: ADMIT Internal Medicine; ATTEND Internal Medicine
DX: K52.839 Microscopic colitis, unspecified (principal); E86.0 Dehydration; I95.1 Orthostatic hypotension; I27.20 Pulmonary hypertension, unspecified; N64.59 Other signs and symptoms in breast; I12.9 Hypertensive chronic kidney disease with stage 1 through stage 4 chronic kidney disease, or unspecified chronic kidney disease; N18.3 Chronic kidney disease, stage 3 (moderate); E03.9 Hypothyroidism, unspecified; G25.0 Essential tremor; M54.9 Dorsalgia, unspecified; R26.89 Other abnormalities of gait and mobility; M10.9 Gout, unspecified; Z96.641 Presence of right artificial hip joint; E78.5 Hyperlipidemia, unspecified; Z86.718 Personal history of other venous thrombosis and embolism; Z86.711 Personal history of pulmonary embolism
CPT/HCPCS: 97116-GP; 97161-GP; 97165-GO; G0378; J1650

== ENCOUNTER → 2018-12-04 | Outpatient (CLI) | payer OTHER, MEDICARE | LOC: BMCIMAGING 10:03 ==